=== PATIENT | female | born 1945 | race African-American/Black ===

== ENCOUNTER 2018-06-18 22:58 | Inpatient (IN) | payer MEDICARE, MEDICAID ==
--- NOTE | 2018-06-18 23:26 | ED Physician Chart ---
ED Chief Complaint/HPI - Patient Information Date Seen:: 06/18/18 Time Seen:: 23:24 Chief Complaint:: Abnormal labs History of Present Illness:: 73 yo female with history of chronic low back pain radiating to the left lower extremity and CKD, was brought from [facility] to ER for evaluation of abnormal labs ( BUN 66, Cr 3.84) on 06/16/18. Allergies:: Allergies Allergy/AdvReac Type Severity Reaction Status Date / Time morphine [From MS Contin] Allergy Verified 06/18/18 23:10 Penicillins Allergy Verified 06/18/18 23:10 Sulfa (Sulfonamide Allergy Verified 06/18/18 23:10 Antibiotics) Vitals:: Vital Signs - 8 hr 06/18/18 23:00 Temp 97.8 F HR 86 RR 18 BP 148/86 O2 Sat % 96 ED Review of Systems - Review of Systems General/Constitutional: No fever, No chills Skin: Other (Dry skin) Head: No headache Eyes: No pain ENT: No nasal drainage, Other (decrease hearing) Neck: No neck pain Cardio Vascular: No chest pain Pulmonary: No SOB GI: No nausea, No vomiting Musculoskeletal: Bone or joint pain, Back pain Neurological: Weakness, Paresthesia ED Past Medical History - Past Medical History Past Medical History: HTN, CHF, Asthma/COPD, Other (CKD, hyperlipidemia, osteoarhritis, osteonecrosis, hearing loss, polyneuropathy, cardiomegaly, anemia ) Social History: Smoker, No Alcohol, No Drug Use Family Medical History - Family Member Mother History Unknown: Yes ED Physical Exam - Physical Examination General/Constitutional: Awake, Alert Head: Atraumatic Eyes: PERRL Skin: No ecchymosis ENMT: Nasal exam nl Neck: No nuchal rigidity Respiratory: No Wheeze/Rhonchi/Rales Cardio Vascular: RRR, No murmur, gallop, rubs, NL S1 S2 GI: No tenderness/rebounding/guarding Other Extremities comments:: Ambulate with assistance. Lumbar tenderness with painful and limited ROM, 1+ terry BLE Neuro/Psych: Alert/oriented (A & O x 2) ED Labs/Radiology/EKG Results - Lab Results Results: Laboratory Last Values WBC 7.1 Th/cmm (4.8-10.8) 06/18/18 23:35 RBC 3.47 Mil/cmm (3.80-5.20) L 06/18/18 23:35 Hgb 9.4 gm/dL (12-16) L 06/18/18 23:35 Hct 29.6 % (41.0-60) L 06/18/18 23:35 MCV 85.2 fl (81-100) 06/18/18 23:35 MCH 27.2 pg (27.0-31.0) 06/18/18 23:35 MCHC Differential 31.9 pg (28.0-36.0) 06/18/18 23:35 RDW 14.0 % (11.5-20.0) 06/18/18 23:35 Plt Count 211 Th/cmm (150-400) 06/18/18 23:35 MPV 7.3 fl 06/18/18 23:35 Neutrophils % 51.5 % (40.0-80.0) 06/18/18 23:35 Lymphocytes % 24.9 % (20.0-50.0) 06/18/18 23:35 Monocytes % 13.6 % (2.0-10.0) H 06/18/18 23:35 Eosinophils % 9.2 % (0.0-5.0) H 06/18/18 23:35 Basophils % 0.8 % (0.0-2.0) 06/18/18 23:35 PT 11.0 SECONDS (9.5-11.5) 06/18/18 23:35 INR 1.06 (0.5-1.4) 06/18/18 23:35 PTT (Actin FS) 27.2 SECONDS (26.0-38.0) 06/18/18 23:35 Sodium 138 mEq/L (136-145) 06/18/18 23:35 Potassium 4.2 mEq/L (3.5-5.1) 06/18/18 23:35 Chloride 107 mEq/L (98-107) 06/18/18 23:35 Carbon Dioxide 24.0 mEq/L (21.0-31.0) 06/18/18 23:35 Anion Gap 11.2 (7.0-16.0) 06/18/18 23:35 BUN 63 mg/dL (7-25) H 06/18/18 23:35 Creatinine 2.6 mg/dL (0.6-1.2) H 06/18/18 23:35 Est GFR ( Amer) TNP 06/18/18 23:35 Est GFR (Non-Af Amer) TNP 06/18/18 23:35 BUN/Creatinine Ratio 24.2 06/18/18 23:35 Glucose 93 mg/dL (70-105) 06/18/18 23:35 Calcium 9.1 mg/dL (8.6-10.3) 06/18/18 23:35 Total Bilirubin 0.4 mg/dL (0.3-1.0) 06/18/18 23:35 AST 16 U/L (13-39) 06/18/18 23:35 ALT 11 U/L (7-52) 06/18/18 23:35 Alkaline Phosphatase 78 U/L (34-104) 06/18/18 23:35 Troponin I 0.02 ng/mL (0.01-0.05) 06/18/18 23:35 B-Natriuretic Peptide 778.0 pg/mL (5.0-100.0) H 06/18/18 23:35 Total Protein 6.7 gm/dL (6.0-8.3) 06/18/18 23:35 Albumin 3.6 gm/dL (3.7-5.3) L 06/18/18 23:35 Globulin 3.1 gm/dL 06/18/18 23:35 Albumin/Globulin Ratio 1.2 (1.0-1.8) 06/18/18 23:35 Urine Source MIDSTREAM 06/19/18 00:15 Urine Color YELLOW 06/19/18 00:15 Urine Clarity CLEAR (CLEAR) 06/19/18 00:15 Urine pH 6.0 (4.6 - 8.0) 06/19/18 00:15 Ur Specific [place] 1.015 (1.005-1.030) 06/19/18 00:15 Urine Protein 100 mg/dL (NEGATIVE) H 06/19/18 00:15 Urine Glucose (UA) NEGATIVE mg/dL (NEGATIVE) 06/19/18 00:15 Urine Ketones NEGATIVE mg/dL (NEGATIVE) 06/19/18 00:15 Urine Blood NEGATIVE (NEGATIVE) 06/19/18 00:15 Urine Nitrate NEGATIVE (NEGATIVE) 06/19/18 00:15 Urine Bilirubin NEGATIVE (NEGATIVE) 06/19/18 00:15 Urine Urobilinogen 0.2 E.U./dL (0.2 - 1.0) 06/19/18 00:15 Ur Leukocyte Esterase NEGATIVE (NEGATIVE) 06/19/18 00:15 Urine RBC 0-2 /hpf (0-5) 06/19/18 00:15 Urine WBC 0-2 /hpf (0-5) 06/19/18 00:15 Ur Epithelial Cells FEW /lpf (FEW) 06/19/18 00:15 Urine Bacteria FEW /hpf (NONE SEEN) 06/19/18 00:15 - Radiology Results Results: CXR: cardiomegaly, left perihilar linear density ED Assessment - Assessment General Assessment: Acute on chronic renal failure CKD CHF Dehydration Anemia, normocytic Chronic low back pain Assessment/Comments:: CBC, CMP, BNP, Trop, UA EKG, CXR D5 1/2 NS at 50cc/h Pain control ED Septic Shock - . Is Septic Shock (SBP<90, OR Lactate>4 mmol\L) present?: No - <6hrs of presentation: Vital Signs: Vital Signs - 8 hr 06/18/18 23:00 Temp 97.8 F HR 86 RR 18 BP 148/86 O2 Sat % 96 ED Reassessment (Disposition) - Reassessment Reassessment Condition:: Improved - Patient Disposition Discharge/Transfer:: Acute Care w/in this hosp Admitting Medical Physician:: Tyler Anderson
[2018-06-18 23:51] LABS: % BASOPHILS 0.8 % (0.0-2.0); % EOSINOPHILS 9.2 % (0.0-5.0); % LYMPHOCYTES 24.9 % (20.0-50.0); % MONOCYTES 13.6 % (2.0-10.0); % NEUTROPHILS 51.5 % (40.0-80.0); BASOPHILE ABSOLUTE 0.1 Th/cumm (0-0.2); EOSINOPHILE ABSOLUTE 0.7 Th/cmm (0.1-0.4); HEMATOCRIT 29.6 % (41.0-60); HEMOGLOBIN 9.4 gm/dL (12-16); LYMPHOCYTE ABSOLUTE 1.8 Th/cmm (1.5-3.0); MEAN CELL VOLUME 85.2 fl (81-100); MEAN CORPUSCULAR HEMOGLOBIN 27.2 pg (27.0-31.0); MEAN CORPUSCULAR HGB CONC 31.9 pg (28.0-36.0); MEAN PLATELET VOLUME 7.3 fl; NEUTROPHILE ABSOLUTE 3.5 Th/cmm (1.8-8.0); PLATELET COUNT 211 Th/cmm (150-400); RED BLOOD COUNT 3.47 Mil/cmm (3.80-5.20); WHITE BLOOD COUNT 7.1 Th/cmm (4.8-10.8)
[2018-06-19 00:06] LABS: INR 1.06 (0.5-1.4)
[2018-06-19 00:08] LABS: ALB/GLOB RATIO 1.2 (1.0-1.8); ALBUMIN 3.6 gm/dL (3.7-5.3); ALKALINE PHOSPHATASE 78 U/L (34-104); ANION GAP 11.2 (7.0-16.0); BILIRUBIN,TOTAL 0.4 mg/dL (0.3-1.0); BUN - UREA NITROGEN 63 mg/dL (7-25); CALCIUM SERUM 9.1 mg/dL (8.6-10.3); CHLORIDE 107 mEq/L (98-107); CREATININE - SERUM 2.6 mg/dL (0.6-1.2); GLUCOSE 93 mg/dL (70-105); POTASSIUM SERUM 4.2 mEq/L (3.5-5.1); SGOT 16 U/L (13-39); SGPT/ALT 11 U/L (7-52); SODIUM SERUM 138 mEq/L (136-145); TOTAL PROTEIN,SERUM 6.7 gm/dL (6.0-8.3)
[2018-06-19] MEDS ORDERED: D5-0.45NS 1,000 ML IV ONE (00:37)
[2018-06-19 00:44] LABS: URINE SOURCE MIDSTREAM
[2018-06-19 00:59] LABS: URINE BILIRUBIN NEGATIVE (NEGATIVE); URINE BLOOD NEGATIVE (NEGATIVE); URINE GLUCOSE (UA) NEGATIVE (NEGATIVE); URINE KETONE NEGATIVE (NEGATIVE); URINE LEUKOCYTE ESTERASE NEGATIVE (NEGATIVE); URINE NITRATE NEGATIVE (NEGATIVE); URINE PROTEIN 100 mg/dL (NEGATIVE); URINE UROBILINOGEN 0.2 E.U./dL (0.2 - 1.0)
[2018-06-19 01:02] LABS: URINE CLARITY CLEAR (CLEAR); URINE COLOR YELLOW; URINE MICROSCOPIC INDICATED? YES
[2018-06-19 01:05] LABS: URINE BACTERIA FEW /hpf (NONE SEEN); URINE EPITHELIAL CELLS FEW /lpf (FEW); URINE RBC 0-2 /hpf (0-5); URINE WBC 0-2 /hpf (0-5)
[2018-06-19] MEDS ORDERED: Morphine Sulfate 2 mg/mL 1mL Syr IV STA (01:39)
[2018-06-19] MEDS ORDERED: Morphine Sulfate 2 mg/mL 1mL Syr ONE (01:41)
[2018-06-19] MEDS ORDERED: Morphine Sulfate 2 mg/mL 1mL Syr IVP PRN (05:20)
[2018-06-19] MEDS ORDERED: Carbamide Peroxide Otic Soln 15 mL Bottle EACH EAR PRN (07:11)
[2018-06-19] MEDS ORDERED: Albuterol Nebulizer 2.5mg/3mL HHN PRN (07:11)
[2018-06-19] MEDS ORDERED: Magnesium Hydroxide (MOM) 30 mL UDC PO PRN (07:11)
[2018-06-19] MEDS: HYDROmorphone 1 mg/mL 1mL Syr IVP PRN ×3 (08:14→21:23)
--- NOTE | 2018-06-19 09:02 | Diagnostic Imaging Report ---
Portable chest x-ray HISTORY: Shortness of breath. The heart is enlarged. There is a degree of pulmonary vascular redistribution consistent with cardiac decompensation. No glo pulmonary edema. A linear density seen within the left perihilar region consistent with scarring or atelectasis. IMPRESSION: 1. Cardiomegaly with evidence of a marginal degree of congestive heart failure without glo pulmonary edema 2. Linear density within the left perihilar region that may be associated with scarring or subsegmental atelectasis.
[2018-06-19] MEDS: POLYETHYLENE GLYCOL 3350 17 GM PACK PO SCH (09:03)
[2018-06-19] MEDS: Ferrous Sulfate 325 MG TAB PO SCH (09:06)
[2018-06-19] MEDS: Vitamin B Complex w/Vitamin C Tab PO SCH (09:14)
--- NOTE | 2018-06-19 13:16 | History & Physical ---
ADMIT DATE: 06/19/2018 CHIEF COMPLAINT: Acute on chronic renal insufficiency, lower back pain and abnormal labs. HISTORY OF PRESENT ILLNESS: The patient is a 73-year-old -[place] lady who resides at [facility], who was transferred to the ER secondary to the above-mentioned complaints. Apparently, the patient had labs done at the facility showing a BUN of 66 and a creatinine of 3.84, which apparently are worse from her previous labs on 06/16/2018. Per records, she has multiple medical problems including generalized osteoarthritis, essential hypertension, hyperlipidemia, osteoporosis, hearing loss, renal insufficiency, asthma, hyperlipidemia. She states that she feels okay at this time. Denies any shortness of breath or lower extremity edema, but is currently complaining of her back pain, which is somewhat chronic in nature. Pertinent findings at the ED include a BUN of 63 with a creatinine of 2.6 (unknown baseline). Her BNP level was also noted to be high at 778. The patient has been admitted to the medical floor for further management and care. PAST MEDICAL HISTORY: As noted above. History of CHF, osteonecrosis, polyneuropathy, cardiomegaly, chronic anemia. PAST SURGICAL HISTORY: None listed. SOCIAL HISTORY: No tobacco, ETOH or illicit drug usage. She lives at [facility]. FAMILY HISTORY: Likely noncontributory to this admission. ALLERGIES: MORPHINE, PENICILLINS, SULFA. OUTPATIENT MEDICATIONS: Lasix 40 mg p.o. every day, Tylenol 650 q.6 p.r.n. for moderate pain, albuterol metered dose inhaler 1 puff t.i.d., amlodipine 10 every day, aspirin 81 every day, atorvastatin 20 at bedtime, Dulcolax suppository 10 mg every day, Debrox ear drops 2 drops each ear b.i.d., Coreg 25 mg q.12, Benadryl 25 q.6 p.r.n. for pruritus, Colace 100 mg b.i.d., iron sulfate 325 every day, folic acid with vitamin B and C every day, gabapentin 600 mg t.i.d., Robitussin 10 mL q.4 p.r.n. for cough, [place] 10/325 q.4 hours p.r.n. for moderate pain, DuoNeb q.4 hours p.r.n. for shortness of breath, milk of magnesia 30 mL at bedtime, Zofran 8 mg p.o. q.8 hours p.r.n. for nausea, vomiting and polyethylene glycol 1 gram every day. REVIEW OF SYSTEMS: GENERAL: She denies any fever, chills and no recent weight loss. HEAD AND NECK: She denies any headaches, any neck stiffness or neck pain. CARDIAC: No chest pain or palpitations. PULMONARY: Denies any cough, phlegm production, shortness of breath, orthopnea, or dyspnea on exertion. GASTROINTESTINAL: No bowel habit changes. GENITOURINARY: No bladder habit changes including decrease in urine output. NEUROLOGICAL: No changes in her vision. Denies any headaches, any syncope. MUSCULOSKELETAL: Chronic lower back pain and hip pain. PHYSICAL EXAMINATION: VITAL SIGNS: Temperature 97.9, afebrile, pulse 80, respirations 19, BP 155/72, respirations 18-19, satting 99% on room air. GENERAL: She is a well-developed, well-nourished female who appears to be in no distress. She is nontoxic appearing and hard of hearing. HEAD AND NECK: Normocephalic, atraumatic. Pupils are reactive to light. Extraocular movements are intact. Oropharynx is moist and clear. CARDIAC: Regular rate and rhythm without any murmurs. LUNGS: Diminished at the bases, but clear to auscultation. ABDOMEN: Soft, supple, nontender, nondistended, normoactive bowel sounds. EXTREMITIES: Lower extremities: There is no pedal edema. NEUROLOGIC: Grossly intact, nonfocal. Able to move all 4 extremities with equal force and strength. Cranial nerves 2-12 appear to be within normal limits. LABORATORY DATA: H and H 02/16, white count 7.1, platelet count 211. INR 1.06. Chemistry showed a BUN of 63 and a creatinine of 2.6, otherwise within normal limits. BNP 778. UA positive for protein, otherwise within normal limits. DIAGNOSTICS: EKG showed second-degree AV block, Mobitz II, heart rate of 80, no ST elevations or depressions. Chest x-ray is currently pending with no official results available yet. ASSESSMENT: 1. Acute on chronic renal insufficiency. 2. History of chronic renal disease. 3. Elevated BNP level with no clinical evidence of congestive heart failure. 4. History of hypertension. 5. History of chronic obstructive pulmonary disease per records. 6. History of chronic pain syndrome. 7. 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 8. History of hyperlipidemia. PLAN: The patient has been admitted to the telemetry [facility] for further management and care. The patient will undergo renal workup including 24-hour urine collection for protein, creatinine, as well as bilateral renal ultrasound. The patient has been placed on IV Lasix and as noted above, we will monitor urine output. She will be kept on her other medications as scheduled including her pain management and Nephrology consult also has been asked for further management and care. [facility]# [id number] [place]
--- NOTE | 2018-06-19 15:08 | Diagnostic Imaging Report ---
Renal ultrasound HISTORY: Abnormal renal function test The right kidney measures approximately 9.5 x 5.9 x 5.8 cm. Slight increase in cortical echogenicity. A 1.3 cm sonolucent lesion is seen in the upper pole consistent with a cyst. No hydronephrosis. The left kidney measures 9.0 x 6.0 x 7.7 cm. Increased cortical echogenicity. A 2.5 cm sonolucent lesion is seen in the mid cortex of the left kidney. No hydronephrosis. No intraluminal abnormality seen within the urinary bladder. Post void residual equals 36.1 mL. IMPRESSION: 1. Increased cortical echogenicity of the kidneys. The findings may reflect a degree of chronic parenchymal disease. Correlation with renal function tests needed 2. No hydronephrosis 3. Bilateral renal cysts
[2018-06-19 15:47] LABS: % EOSINOPHILS 8.5 % (0.0-5.0); % LYMPHOCYTES 24.7 % (20.0-50.0); % MONOCYTES 13.2 % (2.0-10.0); % NEUTROPHILS 52.6 % (40.0-80.0); BASOPHILE ABSOLUTE 0.1 Th/cumm (0-0.2); EOSINOPHILE ABSOLUTE 0.6 Th/cmm (0.1-0.4); HEMATOCRIT 28.7 % (41.0-60); HEMOGLOBIN 9.3 gm/dL (12-16); LYMPHOCYTE ABSOLUTE 1.8 Th/cmm (1.5-3.0); MEAN CELL VOLUME 85.5 fl (81-100); MEAN CORPUSCULAR HEMOGLOBIN 27.6 pg (27.0-31.0); MEAN CORPUSCULAR HGB CONC 32.3 pg (28.0-36.0); MEAN PLATELET VOLUME 7.3 fl; NEUTROPHILE ABSOLUTE 3.8 Th/cmm (1.8-8.0); PLATELET COUNT 193 Th/cmm (150-400); RED BLOOD COUNT 3.36 Mil/cmm (3.80-5.20); RED CELL DISTRIBUTION WIDTH 14.1 % (11.5-20.0); WHITE BLOOD COUNT 7.3 Th/cmm (4.8-10.8)
[2018-06-19 16:10] LABS: ALB/GLOB RATIO 1.1 (1.0-1.8); ALBUMIN 3.3 gm/dL (3.7-5.3); ALKALINE PHOSPHATASE 73 U/L (34-104); ANION GAP 10.5 (7.0-16.0); BILIRUBIN,TOTAL 0.4 mg/dL (0.3-1.0); BUN - UREA NITROGEN 58 mg/dL (7-25); CARBON DIOXIDE 25.5 mEq/L (21.0-31.0); CHLORIDE 108 mEq/L (98-107); CHOLESTEROL 189 mg/dL (<200); CREATININE - SERUM 2.7 mg/dL (0.6-1.2); GLUCOSE 115 mg/dL (70-105); HDL -HIGH DENSITY LIPOPROTEIN 45 mg/dL (23-92); MAGNESIUM 2.2 mg/dL (1.9-2.7); SGOT 15 U/L (13-39); SGPT/ALT 11 U/L (7-52); SODIUM SERUM 140 mEq/L (136-145); TOTAL PROTEIN,SERUM 6.4 gm/dL (6.0-8.3); TRIGLYCERIDES 112 mg/dL (<150)
--- NOTE | 2018-06-19 16:31 | History & Physical ---
ADMIT DATE: 06/19/2018 CHIEF COMPLAINT: Short of breath, severe pain and acute renal failure. HISTORY OF PRESENT ILLNESS: The patient is a 73-year-old -Maltese female admitted from the Emergency Room to telemetry floor of [facility] due to multiple complicated medical conditions. The patient is getting very weak with progressive worsening for the past few days. She complained of severe pain. She complains of pain in the back and the multiple joints. The patient also has some shortness of breath. Labs done in the shelter 2 days ago revealed acute renal failure on chronic kidney disease. The patient is subsequently admitted. The BUN is 63, creatinine of 2.6 in the Emergency Room. BNP 778. Hemoglobin 9.4, hematocrit 29. Chest x-ray revealed findings consistent with congestive heart failure. PAST MEDICAL HISTORY: Coronary heart disease, status post [place], congestive heart failure, hypertension, hyperlipidemia, chronic kidney disease, chronic pain syndrome, neuropathy, COPD. PAST SURGICAL HISTORY: Denies significant past surgical history. MEDICATIONS: See medication reconciliation list. ALLERGIES: MORPHINE, PENICILLIN. FAMILY HISTORY: Noncontributory. SOCIAL HISTORY: The patient smoked before, quit years ago. No history of alcohol or IV drug abuse. REVIEW OF SYSTEMS: As per HPI. PHYSICAL EXAMINATION: GENERAL: Well-developed, thin female, in no acute distress. SKIN: There is some excoriation in the sacral area. VITAL SIGNS: Basically stable except high blood pressure with blood pressure of 190/96. HEENT: Normocephalic, atraumatic. Pupils equal, round, react to light and accommodation. CHEST: Symmetrical. LUNGS: Few wheezes appreciated with few rhonchi as well. CARDIAC: Normal sinus rhythm. S1, S2. ABDOMEN: Benign, soft, nontender. EXTREMITIES: No clubbing, cyanosis, edema, bilaterally 2+. CRANIOLOGICAL: Unremarkable. LABORATORY DATA: Reviewed as seen from the computer. ASSESSMENT AND PLAN: 1. Acute renal failure on chronic kidney disease: I have instructed the shelter yesterday to discontinue any CHIDI inhibitor and the diuretics. We will try to avoid nephrotoxic medications if possible. Nephrology consultation requested and appreciated. 2. Congestive heart failure with elevated BNP: Adjust medication as needed and echocardiogram may be needed. 3. Hypertensive urgency: Close monitor and adjust medication. 4. Coronary artery disease, status post myocardial infarction: Continue medications. 5. Chronic obstructive pulmonary disease: RT protocol. 6. Chronic pain syndrome exacerbation: Adjust pain medications as needed. 7. History of neuropathy: Continue Neurontin. 8. DVT prophylaxis. JOB# [id number]
[2018-06-19] MEDS ORDERED: Menthol/Methyl Salicylate Cream TP PRN (17:00)
[2018-06-19] MEDS: Atorvastatin Calcium 10 MG TAB PO SCH (21:10)
[2018-06-20] MEDS: HYDROmorphone 1 mg/mL 1mL Syr IVP PRN ×4 (01:50→19:47)
--- NOTE | 2018-06-20 01:58 | Consultation ---
DATE OF CONSULTATION: 06/19/2018 ATTENDING: Dr. Dedra Anderson. RIGGING HELPER: Dr. Ronaldo Prince. REASON FOR CONSULTATION: Worsening kidney function, electrolyte imbalance, and fluid management. HISTORY OF PRESENT ILLNESS: This is a 73-year-old -Armenian female with past medical history of chronic kidney disease, who came in because of abnormal labs. Two days prior to admission, the patient had labs drawn at [facility], which revealed a BUN/creatinine of 66/3.84. As per the patient, she has had history of kidney disease "all of her life." Thus, she was transported to the Emergency Room. Her BUN/creatinine on admission were 63/2.6. She denied any nausea and vomiting, diarrhea, fever/chills, dysuria, hematuria or retention. PAST MEDICAL HISTORY: 1. Chronic kidney disease. 2. Legally deaf. 3. Severe DJD of both hips. 4. Essential hypertension. 5. Dyslipidemia. 6. Osteoporosis. 7. Sickle cell disease. 8. History of CHF. 9. History of COPD. 10. Polyneuropathy. CURRENT MEDICATIONS: She is currently on acetaminophen, amlodipine, aspirin, atorvastatin, bisacodyl, carbamide, peroxide, carvedilol, diphenhydramine, docusate sodium, ferrous sulfate, furosemide, gabapentin, Robitussin, hydrocodone/APAP, ondansetron, polyethylene glycol, vitamin B complex. ALLERGIES: ALLERGIC TO MORPHINE, PENICILLIN, AND SULFA. SOCIAL AND FAMILY HISTORY: I was not able to obtain directly from the patient because of difficulty communicating with her since she is deaf. REVIEW OF SYSTEMS: Again, I was not able to decipher accurate information from her because of her inability to communicate. PHYSICAL EXAMINATION: GENERAL: The patient is awake, verbal, diminished hearing. VITAL SIGNS: Her temperature is 99.3 degrees, pulse 81, blood pressure 154/84. SKIN: Poor turgor, warm, no rash, no jaundice appreciated. HEENT: Head normocephalic, atraumatic. Eyes: Extraocular muscles intact. Pupils equal, round, reactive to light and accommodates. Anicteric sclerae. Pale conjunctivae. Nose, midline nasal septum. Mouth: Dry mucosa, adequate dentition. NECK: Supple, no adenopathy, no thyromegaly, no bruits. Trachea palpated in the midline. CHEST AND CARDIOVASCULAR: S1, S2. No rub, murmur nor gallop appreciated. Point of maximal impulse fifth intercostal space, left midclavicular line. No abdominal or femoral bruits appreciated. LUNGS: Equal expansion. No use of accessory muscles. No supraclavicular retractions. Decreased breath sounds, few rhonchi, but no rales nor wheezes appreciated. BREASTS: Pendulous, symmetrical, without any discharge. ABDOMEN: Globular, soft, positive for bowel sounds. No bruits either diastolic or systolic. RECTAL: Deferred. GENITOURINARY: Normal appearing female genitalia. MUSCULOSKELETAL: No effusions present in her joints, but there was a problem of assessment of movement of lower extremities due to inability to communicate. EXTREMITIES: No evidence of any edema, cyanosis nor clubbing with palpable femoral, but unable to fully appreciate popliteal and dorsalis pedis pulses. NEUROLOGIC: Again, because of problem with deafness and communication I was not able to pursue further my neuro exam. LABORATORY DATA: Labs did reveal white count 7.1, hemoglobin 9.4, hematocrit 29.6, platelets 211, polys 51.5%. Sodium 138, potassium 4.2, chloride 107, bicarbonate 24, BUN 63, creatinine 2.6, glucose 93, calcium 9.1. BNP 778. Troponin 0.02, albumin 3.6. IMPRESSION: 1. Chronic kidney disease, stage 5. The patient's chronic kidney disease is secondary to longstanding history of hypertension giving rise to hypertensive nephrosclerosis. 2. Legally deaf. 3. Elevated BNP likely secondary to kidney failure. 4. Severe degenerative joint disease involving both hips. 5. Essential hypertension with chronic kidney disease. 6. Dyslipidemia. 7. Osteoporosis. 8. Sickle cell disease. 9. Polyneuropathy. 10. Chronic obstructive pulmonary disease. PLAN: 1. Renal ultrasound. 2. Urinalysis. 3. Urine spot sodium, eosinophils, and creatinine. 4. Urine microalbumin to creatinine ratio. 5. Discontinue Lasix for now since the patient not in overt decompensated heart failure and there is no evidence of any peripheral edema. 6. Follow up electrolytes. JOB# [id number]
[2018-06-20 05:38] LABS: EOSINOPHIL SMEAR SOURCE URINE; EOSINOPHILS SMEAR COUNT NONE SEEN (NONE SEEN)
--- NOTE | 2018-06-20 06:27 | Consultation ---
DATE OF CONSULTATION: 06/19/[address] Anderson. HISTORY OF PRESENT ILLNESS: This 73-year-old -[place] female patient who has been admitted to [facility] with various medical problems. The patient has elevated BNP level with cardiac arrhythmias and hence Cardiology consult is requested. PAST MEDICAL HISTORY: Hypertension, hyperlipidemia, deafness, CKD stage 4, osteoporosis, iron deficiency anemia, COPD, osteoporosis. FAMILY HISTORY: Unremarkable. SOCIAL HISTORY: No history of smoking, alcohol abuse. ALLERGIES: None. PHYSICAL EXAMINATION: VITAL SIGNS: Blood pressure 130/70, pulse 70, respiration 20. HEAD: Normocephalic. No lumps or bumps. EYES: Pupils equal, reactive to light. Fundi show AV nicking, sclerae white, conjunctivae pink. NECK: Carotid 2+. Normal upstroke. JVD flat. Thyroid not palpable. Lymph nodes not palpable. CHEST: Shows increased AP diameter. No kyphosis, scoliosis. LUNGS: Bilateral bronchovesicular breath sounds. HEART: PMI fifth intercostal space with lateral to midclavicular line. S1, S2, soft S3, S4. ABDOMEN: Soft. Liver, spleen not palpable. No organomegaly. Bowel sounds active. NEUROLOGIC: Unremarkable. EXTREMITIES: Peripheral pulses 2+. No pedal edema. CLINICAL IMPRESSION: Congestive heart failure, diastolic dysfunction, acute hypertension, hyperlipidemia, deafness, chronic kidney disease stage 4, osteoporosis, iron deficiency anemia and chronic obstructive pulmonary disease. PLAN: We will continue present management and monitor the patient for arrhythmias, also get an echocardiogram. JOB# [id number]
[2018-06-20 06:45] LABS: EOSINOPHILE ABSOLUTE 0.6 Th/cmm (0.1-0.4); HEMATOCRIT 29.3 % (41.0-60); HEMOGLOBIN 9.6 gm/dL (12-16); LYMPHOCYTE ABSOLUTE 2.1 Th/cmm (1.5-3.0); MEAN CELL VOLUME 86.3 fl (81-100); MEAN CORPUSCULAR HEMOGLOBIN 28.2 pg (27.0-31.0); MEAN CORPUSCULAR HGB CONC 32.6 pg (28.0-36.0); MEAN PLATELET VOLUME 7.8 fl; MONOCYTE ABSOLUTE 1.1 Th/cmm (0.3-1.0); NEUTROPHILE ABSOLUTE 3.2 Th/cmm (1.8-8.0); PLATELET COUNT 201 Th/cmm (150-400); RED BLOOD COUNT 3.39 Mil/cmm (3.80-5.20); RED CELL DISTRIBUTION WIDTH 14.2 % (11.5-20.0)
[2018-06-20 07:08] LABS: ANION GAP 12.3 (7.0-16.0); BUN - UREA NITROGEN 63 mg/dL (7-25); CALCIUM SERUM 8.8 mg/dL (8.6-10.3); CHLORIDE 109 mEq/L (98-107); CREATININE - SERUM 2.6 mg/dL (0.6-1.2); GLUCOSE 89 mg/dL (70-105); MAGNESIUM 2.3 mg/dL (1.9-2.7); PHOSPHOROUS 4.2 mg/dL (2.5-5.0); POTASSIUM SERUM 4.3 mEq/L (3.5-5.1); SODIUM SERUM 142 mEq/L (136-145)
[2018-06-20 08:12] LABS: EOSINOPHIL 9 % (0-5); LYMPHOCYTE 27 % (20-50); MONOCYTE 19 % (2-10); NEUTROPHILS 45 % (40-80); PLATELET ESTIMATE ADEQUATE (NORMAL)
[2018-06-20] MEDS: Ferrous Sulfate 325 MG TAB PO SCH (09:13)
[2018-06-20] MEDS: POLYETHYLENE GLYCOL 3350 17 GM PACK PO SCH ×2 (09:15→10:36)
[2018-06-20] MEDS: Vitamin B Complex w/Vitamin C Tab PO SCH (09:15)
--- NOTE | 2018-06-20 12:10 | General Progress Note ---
Subjective - Review of Systems Service Date: 06/20/18 Subjective: Patient has no complaint of chest pain shortness of breath patient is deaf Objective - Results Result Diagrams: 06/20/18 05:55 06/20/18 05:55 Recent Labs: Laboratory Last Values WBC 7.0 Th/cmm (4.8-10.8) 06/20/18 05:55 RBC 3.39 Mil/cmm (3.80-5.20) L 06/20/18 05:55 Hgb 9.6 gm/dL (12-16) L 06/20/18 05:55 Hct 29.3 % (41.0-60) L 06/20/18 05:55 MCV 86.3 fl (81-100) 06/20/18 05:55 MCH 28.2 pg (27.0-31.0) 06/20/18 05:55 MCHC Differential 32.6 pg (28.0-36.0) 06/20/18 05:55 RDW 14.2 % (11.5-20.0) 06/20/18 05:55 Plt Count 201 Th/cmm (150-400) 06/20/18 05:55 MPV 7.8 fl 06/20/18 05:55 Add Manual Diff YES 06/20/18 05:55 Neutrophils % 52.6 % (40.0-80.0) 06/19/18 15:30 Lymphocytes % 24.7 % (20.0-50.0) 06/19/18 15:30 Monocytes % 13.2 % (2.0-10.0) H 06/19/18 15:30 Eosinophils % 8.5 % (0.0-5.0) H 06/19/18 15:30 Basophils % 1.0 % (0.0-2.0) 06/19/18 15:30 Neutrophils (Manual) 45 % (40-80) 06/20/18 05:55 Lymphocytes 27 % (20-50) 06/20/18 05:55 Monocytes 19 % (2-10) H 06/20/18 05:55 Eosinophils 9 % (0-5) H 06/20/18 05:55 Platelet Estimate ADEQUATE (NORMAL) 06/20/18 05:55 Eos Smear Source URINE 06/19/18 18:10 Eos Smear Total Cells NONE SEEN (NONE SEEN) 06/19/18 18:10 PT 11.0 SECONDS (9.5-11.5) 06/18/18 23:35 INR 1.06 (0.5-1.4) 06/18/18 23:35 PTT (Actin FS) 27.2 SECONDS (26.0-38.0) 06/18/18 23:35 Sodium 142 mEq/L (136-145) 06/20/18 05:55 Potassium 4.3 mEq/L (3.5-5.1) 06/20/18 05:55 Chloride 109 mEq/L (98-107) H 06/20/18 05:55 Carbon Dioxide 25.0 mEq/L (21.0-31.0) 06/20/18 05:55 Anion Gap 12.3 (7.0-16.0) 06/20/18 05:55 BUN 63 mg/dL (7-25) H 06/20/18 05:55 Creatinine 2.6 mg/dL (0.6-1.2) H 06/20/18 05:55 Est GFR ( Amer) TNP 06/20/18 05:55 Est GFR (Non-Af Amer) TNP 06/20/18 05:55 BUN/Creatinine Ratio 24.2 06/20/18 05:55 Glucose 89 mg/dL (70-105) 06/20/18 05:55 Uric Acid 8.1 mg/dL (2.3-6.6) H 06/19/18 15:30 Calcium 8.8 mg/dL (8.6-10.3) 06/20/18 05:55 Phosphorus 4.2 mg/dL (2.5-5.0) 06/20/18 05:55 Magnesium 2.3 mg/dL (1.9-2.7) 06/20/18 05:55 Total Bilirubin 0.4 mg/dL (0.3-1.0) 06/19/18 15:30 AST 15 U/L (13-39) 06/19/18 15:30 ALT 11 U/L (7-52) 06/19/18 15:30 Alkaline Phosphatase 73 U/L (34-104) 06/19/18 15:30 Troponin I 0.02 ng/mL (0.01-0.05) 06/18/18 23:35 B-Natriuretic Peptide 828.0 pg/mL (5.0-100.0) H 06/20/18 05:55 Total Protein 6.4 gm/dL (6.0-8.3) 06/19/18 15:30 Albumin 3.3 gm/dL (3.7-5.3) L 06/19/18 15:30 Globulin 3.1 gm/dL 06/19/18 15:30 Albumin/Globulin Ratio 1.1 (1.0-1.8) 06/19/18 15:30 Triglycerides 112 mg/dL (<150) 06/19/18 15:30 Cholesterol 189 mg/dL (<200) 06/19/18 15:30 LDL Cholesterol Direct 132 mg/dL (75-193) 06/19/18 15:30 HDL Cholesterol 45 mg/dL (23-92) 06/19/18 15:30 TSH 2.31 uIU/ml (0.34-5.60) 06/19/18 15:30 Urine Source MIDSTREAM 06/19/18 00:15 Urine Color YELLOW 06/19/18 00:15 Urine Clarity CLEAR (CLEAR) 06/19/18 00:15 Urine pH 6.0 (4.6 - 8.0) 06/19/18 00:15 Ur Specific [place] 1.015 (1.005-1.030) 06/19/18 00:15 Urine Protein 100 mg/dL (NEGATIVE) H 06/19/18 00:15 Urine Glucose (UA) NEGATIVE mg/dL (NEGATIVE) 06/19/18 00:15 Urine Ketones NEGATIVE mg/dL (NEGATIVE) 06/19/18 00:15 Urine Blood NEGATIVE (NEGATIVE) 06/19/18 00:15 Urine Nitrate NEGATIVE (NEGATIVE) 06/19/18 00:15 Urine Bilirubin NEGATIVE (NEGATIVE) 06/19/18 00:15 Urine Urobilinogen 0.2 E.U./dL (0.2 - 1.0) 06/19/18 00:15 Ur Leukocyte Esterase NEGATIVE (NEGATIVE) 06/19/18 00:15 Urine RBC 0-2 /hpf (0-5) 06/19/18 00:15 Urine WBC 0-2 /hpf (0-5) 06/19/18 00:15 Ur Epithelial Cells FEW /lpf (FEW) 06/19/18 00:15 Urine Bacteria FEW /hpf (NONE SEEN) 06/19/18 00:15 Ur Random Sodium 74 mmol/L 06/19/18 18:10 Urine Creatinine 64.0 mg/dl (28.0-217.0) 06/19/18 18:10 Microalb/Creat Ratio 640.2 mg/g creat (0.0-30.0) H 06/19/18 18:10 - Physical Exam Vitals and I&O: Vital Signs Temp 97.9 F 06/20/18 08:00 Pulse 80 06/20/18 09:20 Resp 18 06/20/18 08:00 BP 139/67 06/20/18 09:20 Pulse Ox 98 06/20/18 08:00 Intake & Output 06/19/18 06/20/18 06/20/18 18:59 06:59 18:59 Intake Total 1000 50 Balance 1000 50 Weight (lbs) 72.121 kg 72.121 kg Intake: Oral 1000 50 Other: # Voids 3 1 # Bowel Movements 0 0 Weight Source Bedscale Bedscale Active Medications: Current Medications Acetaminophen (Tylenol) 650 mg PO Q6HR PRN PRN Reason: Temp above 101F & Mild Pain Stop: 08/18/18 07:10 Acetaminophen/Hydrocodone Bitart ([place] 10 Mg/325 Mg) 1 tab PO Q4HR PRN PRN Reason: Pain (Moderate) Stop: 08/18/18 07:10 Albuterol Sulfate (Albuterol 2.5mg/3ml Neb Ud) 2.5 mg HHN TID PRN PRN Reason: Wheezing Albuterol/Ipratropium (Duoneb Neb) 3 ml HHN Q4HR PRN PRN Reason: Shortness of Breath or Wheeze Stop: 08/18/18 07:10 Amlodipine Besylate (Norvasc) 10 mg PO DAILY KRISTIN Stop: 08/18/18 08:59 Last Admin: 06/20/18 09:20 Dose: 10 mg Aspirin (Ecotrin) 81 mg PO DAILY KRISTIN Stop: 08/18/18 08:59 Last Admin: 06/20/18 09:15 Dose: 81 mg Atorvastatin Calcium (Lipitor) 20 mg PO HS KRISTIN Stop: 08/18/18 20:59 Last Admin: 06/19/18 21:10 Dose: 20 mg Bisacodyl (Dulcolax 10 Mg Supp) 10 mg RC DAILY PRN PRN Reason: Constipation Stop: 08/18/18 07:10 Camphor/Menthol (Bengay Greaseless 10%-15%) 1 appl TP QID PRN PRN Reason: Pain (Mild) Stop: 08/18/18 16:59 Carbamide Peroxide (Debrox Otic Drops) 2 drop EACH EAR BID PRN PRN Reason: EARWAX Stop: 08/18/18 07:10 Carvedilol (Coreg) 25 mg PO Q12HR KRISTIN Stop: 08/18/18 08:59 Last Admin: 06/20/18 09:18 Dose: 25 mg Diphenhydramine HCl (Benadryl) 25 mg PO Q6HR PRN PRN Reason: Itching Stop: 08/18/18 07:10 Last Admin: 06/19/18 09:15 Dose: 25 mg Docusate Sodium (Colace) 100 mg PO BID [facility] Stop: 08/18/18 08:59 Last Admin: 06/20/18 09:14 Dose: 100 mg Ferrous Sulfate (Iron) 325 mg PO DAILY [facility] Stop: 08/18/18 08:59 Last Admin: 06/20/18 09:13 Dose: 325 mg Gabapentin (Neurontin) 600 mg PO TID [facility] Stop: 08/18/18 08:59 Last Admin: 06/20/18 09:14 Dose: 600 mg Guaifenesin (Robitussin) 200 mg PO Q4HR PRN PRN Reason: Cough Stop: 08/18/18 07:10 Hydromorphone HCl (Dilaudid) 1 mg IVP Q4HR PRN PRN Reason: Pain (Severe) Stop: 08/18/18 07:10 Last Admin: 06/20/18 09:10 Dose: 1 mg Magnesium Hydroxide (Milk Of Magnesia) 30 ml PO HS PRN PRN Reason: Constipation Stop: 08/18/18 07:10 Miscellaneous (Clinical Monitoring) 1 ea MC DAILY PRN PRN Reason: RENAL DOSING Stop: 08/18/18 16:50 Ondansetron HCl (Zofran Odt) 8 mg PO Q8HR PRN PRN Reason: Nausea / Vomiting Polyethylene Glycol (Miralax) 17 gm PO DAILY KRISTIN Stop: 08/18/18 08:59 Last Admin: 06/20/18 10:36 Dose: Not Given Vitamin B Complex/Vit C/Folic Acid (Vitamin B Complex W/Vitamin C) 1 tab PO DAILY KRISTIN Stop: 08/18/18 08:59 Last Admin: 06/20/18 09:15 Dose: 1 tab General: Alert HEENT: PERRLA, Other Neck: JVD, +2 carotid pulse wo bruit (flat) Cardiovascular: Regular rate, Normal S2, Systolic murmurs Lungs: Other (basilar rales) Abdomen: Bowel sounds, Soft Extremities: Other (no pedal edema) Neurological: Normal speech, Normal tone, Sensation intact, Cranial nerves 3-12 NL, Reflexes 2+ Assessment/Plan - Assessment Assessment: Congestive heart failure systolic dysfunction acute Hypertension Hyperlipidemia CKD stage V Deafness Osteoporosis Iron deficiency anemia COPD - Plan Plan: Continue present management as renal evaluation Echocardiogram ejection fraction 38% mild mitral regurgitation mild tricuspid regurgitation left atrial enlargement and right atrial enlargement cardiomyopathy Nutritional Asmnt/Malnutr-PDOC - Dietary Evaluation Malnutrition Findings (Please click <Entered> for more info): Nutritional Asmnt/Malnutrition Start: 06/19/18 15: 27 Text: Status: Complete Freq: Protocol: Document 06/19/18 15:27 [email or web address] (Rec: 06/19/18 15:41 [email or web address] [email or web address]) Nutritional Asmnt/Malnutrition Patient General Information Nutritional Screening High Risk Diagnosis acute chronic kidney disease, CHF Pertinent Medical Hx/Surgical Hx CHF, osteonecrosis, polyneuropathy, cardiomegaly, chronic anemia, osteoarthritis , hyperlipidemia, osteoporosis , hearing loss, renal insufficiency, asthma Subjective Information Pt was seen sleeping at time of visit, did not wake to greeting. PO intake is 100% per RN. Renal ultrasound done today, findings reflect a degree of chronic parenchymal disease and bilateral renal cysts, per MD report. Current Diet Order/ Nutrition Support low sodium 2gm Pertinent Medications lipitor, d5-0.45ns, colace, iron, zofran, miralax, vit b complex w/ vit c Pertinent Labs 06/18 BUN 63, cr 2.6, alb 3.6 Nutritional Hx/Data Height 1.6 m Height (Calculated Centimeters) 160.0 Current Weight (lbs) 72.121 kg Weight (Calculated Kilograms) 72.1 Weight (Calculated Grams) 47775.2 [place] Body Weight 115 Body Mass Index (BMI) 28.1 Weight Status Overweight GI Symptoms GI Symptoms None Last BM not indicated Difficult in: None Food Allergies No Skin Integrity/Comment: intact Current %PO Good (75-100%) Estimated Nutritional Goals BEE in Kcals: Using Current wt Calories/Kcals/Kg 25-30 Kcals Calculated 0357-4292 Protein: Using Current wt Protein g/k.7-0.8 Protein Calculated 50-57 Fluid: ml 1465-9864 (1ml/kcal) Nutritional Problem 1. Problem Problem altered nutrition related labs Etiology renal dysfunction Signs/Symptoms: BUN 63, Cr 2.6 Malnutrition Alert Is there a minimum of two criteria No selected? Query Text:Check all the applicable criteria. A minimum of two criteria are recommended for diagnosis of either severe or non-severe malnutrition. Malnutrition Related to Morbid Obesity Malnutrition related to morbid obesity No Intervention/Recommendation Comments 1. Recommend adding Renal 50g diet. TAO Tran notified, will speak to MD. Continue with low sodium 2gm diet as ordered. 2. Monitor PO intake, wt, labs and skin integrity 3. F/U as high risk in 2-3 days Expected Outcomes/Goals Expected Outcomes/Goals 1. PO intake to meet at least 75% of nutritional needs. 2. Wt stability, skin to remain intact, labs to approach WNL. Reviewed by Vero Peterson RD
--- NOTE | 2018-06-20 13:14 | Cardiology ---
06/19/[address] Anderson. M-MODE ECHOCARDIOGRAM: Mitral valve, anterior leaflet of mitral valve shows decreased excursion, EF velocity. Posterior leaflet of the mitral valve shows decreased excursion. Left ventricular posterior wall shows increased thickness, decreased excursion. Interventricular septum shows increased thickness, decreased excursion. There is hypertrophy of the left ventricle, ejection fraction 38%. Left atrium enlarged 4.6 cm. Aortic root shows normal dimension, normal excursion of aortic leaflets. CONCLUSION: Left atrial enlargement, cardiomyopathy, ejection fraction 38%. 2D ECHO: Long axis view shows enlarged left ventricular cavity with decreased ejection fraction. Left atrium enlarged. Aortic root shows normal dimension, normal excursion of aortic leaflets. Short axis view of mitral valve normal. Short axis view of aortic valve normal. Apical four chamber view shows enlarged left ventricular cavity with decreased ejection fraction, hypertrophy of the left ventricle. Left atrium enlarged. Right ventricular cavity normal. Right atrial enlargement. CONCLUSION: Cardiomyopathy, left atrial enlargement, right atrial enlargement, ejection fraction 38%. Doppler study shows mild mitral regurgitation, mild tricuspid regurgitation, right ventricular systolic pressure 46 mmHg with mild pulmonary hypertension. JOB# [id number]
--- NOTE | 2018-06-20 13:47 | General Progress Note ---
Subjective - Review of Systems Service Date: 06/20/18 Subjective: sleeping, comfortable Objective - Results Result Diagrams: 06/20/18 05:55 06/20/18 05:55 Recent Labs: Laboratory Last Values WBC 7.0 Th/cmm (4.8-10.8) 06/20/18 05:55 RBC 3.39 Mil/cmm (3.80-5.20) L 06/20/18 05:55 Hgb 9.6 gm/dL (12-16) L 06/20/18 05:55 Hct 29.3 % (41.0-60) L 06/20/18 05:55 MCV 86.3 fl (81-100) 06/20/18 05:55 MCH 28.2 pg (27.0-31.0) 06/20/18 05:55 MCHC Differential 32.6 pg (28.0-36.0) 06/20/18 05:55 RDW 14.2 % (11.5-20.0) 06/20/18 05:55 Plt Count 201 Th/cmm (150-400) 06/20/18 05:55 MPV 7.8 fl 06/20/18 05:55 Add Manual Diff YES 06/20/18 05:55 Neutrophils % 52.6 % (40.0-80.0) 06/19/18 15:30 Lymphocytes % 24.7 % (20.0-50.0) 06/19/18 15:30 Monocytes % 13.2 % (2.0-10.0) H 06/19/18 15:30 Eosinophils % 8.5 % (0.0-5.0) H 06/19/18 15:30 Basophils % 1.0 % (0.0-2.0) 06/19/18 15:30 Neutrophils (Manual) 45 % (40-80) 06/20/18 05:55 Lymphocytes 27 % (20-50) 06/20/18 05:55 Monocytes 19 % (2-10) H 06/20/18 05:55 Eosinophils 9 % (0-5) H 06/20/18 05:55 Platelet Estimate ADEQUATE (NORMAL) 06/20/18 05:55 Eos Smear Source URINE 06/19/18 18:10 Eos Smear Total Cells NONE SEEN (NONE SEEN) 06/19/18 18:10 PT 11.0 SECONDS (9.5-11.5) 06/18/18 23:35 INR 1.06 (0.5-1.4) 06/18/18 23:35 PTT (Actin FS) 27.2 SECONDS (26.0-38.0) 06/18/18 23:35 Sodium 142 mEq/L (136-145) 06/20/18 05:55 Potassium 4.3 mEq/L (3.5-5.1) 06/20/18 05:55 Chloride 109 mEq/L (98-107) H 06/20/18 05:55 Carbon Dioxide 25.0 mEq/L (21.0-31.0) 06/20/18 05:55 Anion Gap 12.3 (7.0-16.0) 06/20/18 05:55 BUN 63 mg/dL (7-25) H 06/20/18 05:55 Creatinine 2.6 mg/dL (0.6-1.2) H 06/20/18 05:55 Est GFR ( Amer) TNP 06/20/18 05:55 Est GFR (Non-Af Amer) TNP 06/20/18 05:55 BUN/Creatinine Ratio 24.2 06/20/18 05:55 Glucose 89 mg/dL (70-105) 06/20/18 05:55 Uric Acid 8.1 mg/dL (2.3-6.6) H 06/19/18 15:30 Calcium 8.8 mg/dL (8.6-10.3) 06/20/18 05:55 Phosphorus 4.2 mg/dL (2.5-5.0) 06/20/18 05:55 Magnesium 2.3 mg/dL (1.9-2.7) 06/20/18 05:55 Total Bilirubin 0.4 mg/dL (0.3-1.0) 06/19/18 15:30 AST 15 U/L (13-39) 06/19/18 15:30 ALT 11 U/L (7-52) 06/19/18 15:30 Alkaline Phosphatase 73 U/L (34-104) 06/19/18 15:30 Troponin I 0.02 ng/mL (0.01-0.05) 06/18/18 23:35 B-Natriuretic Peptide 828.0 pg/mL (5.0-100.0) H 06/20/18 05:55 Total Protein 6.4 gm/dL (6.0-8.3) 06/19/18 15:30 Albumin 3.3 gm/dL (3.7-5.3) L 06/19/18 15:30 Globulin 3.1 gm/dL 06/19/18 15:30 Albumin/Globulin Ratio 1.1 (1.0-1.8) 06/19/18 15:30 Triglycerides 112 mg/dL (<150) 06/19/18 15:30 Cholesterol 189 mg/dL (<200) 06/19/18 15:30 LDL Cholesterol Direct 132 mg/dL (75-193) 06/19/18 15:30 HDL Cholesterol 45 mg/dL (23-92) 06/19/18 15:30 TSH 2.31 uIU/ml (0.34-5.60) 06/19/18 15:30 Urine Source MIDSTREAM 06/19/18 00:15 Urine Color YELLOW 06/19/18 00:15 Urine Clarity CLEAR (CLEAR) 06/19/18 00:15 Urine pH 6.0 (4.6 - 8.0) 06/19/18 00:15 Ur Specific [place] 1.015 (1.005-1.030) 06/19/18 00:15 Urine Protein 100 mg/dL (NEGATIVE) H 06/19/18 00:15 Urine Glucose (UA) NEGATIVE mg/dL (NEGATIVE) 06/19/18 00:15 Urine Ketones NEGATIVE mg/dL (NEGATIVE) 06/19/18 00:15 Urine Blood NEGATIVE (NEGATIVE) 06/19/18 00:15 Urine Nitrate NEGATIVE (NEGATIVE) 06/19/18 00:15 Urine Bilirubin NEGATIVE (NEGATIVE) 06/19/18 00:15 Urine Urobilinogen 0.2 E.U./dL (0.2 - 1.0) 06/19/18 00:15 Ur Leukocyte Esterase NEGATIVE (NEGATIVE) 06/19/18 00:15 Urine RBC 0-2 /hpf (0-5) 06/19/18 00:15 Urine WBC 0-2 /hpf (0-5) 06/19/18 00:15 Ur Epithelial Cells FEW /lpf (FEW) 06/19/18 00:15 Urine Bacteria FEW /hpf (NONE SEEN) 06/19/18 00:15 Ur Random Sodium 74 mmol/L 06/19/18 18:10 Urine Creatinine 64.0 mg/dl (28.0-217.0) 06/19/18 18:10 Microalb/Creat Ratio 640.2 mg/g creat (0.0-30.0) H 06/19/18 18:10 - Physical Exam Vitals and I&O: Vital Signs Temp 97.9 F 06/20/18 08:00 Pulse 80 06/20/18 09:20 Resp 18 06/20/18 08:00 BP 139/67 06/20/18 09:20 Pulse Ox 98 06/20/18 08:00 Intake & Output 06/19/18 06/20/18 06/20/18 18:59 06:59 18:59 Intake Total 1000 50 Balance 1000 50 Weight (lbs) 72.121 kg 72.121 kg Intake: Oral 1000 50 Other: # Voids 3 1 # Bowel Movements 0 0 Weight Source Bedscale Bedscale Active Medications: Current Medications Acetaminophen (Tylenol) 650 mg PO Q6HR PRN PRN Reason: Temp above 101F & Mild Pain Stop: 08/18/18 07:10 Acetaminophen/Hydrocodone Bitart ([place] 10 Mg/325 Mg) 1 tab PO Q4HR PRN PRN Reason: Pain (Moderate) Stop: 08/18/18 07:10 Albuterol Sulfate (Albuterol 2.5mg/3ml Neb Ud) 2.5 mg HHN TID PRN PRN Reason: Wheezing Albuterol/Ipratropium (Duoneb Neb) 3 ml HHN Q4HR PRN PRN Reason: Shortness of Breath or Wheeze Stop: 08/18/18 07:10 Amlodipine Besylate (Norvasc) 10 mg PO DAILY [facility] Stop: 08/18/18 08:59 Last Admin: 06/20/18 09:20 Dose: 10 mg Aspirin (Ecotrin) 81 mg PO DAILY KRISTIN Stop: 08/18/18 08:59 Last Admin: 06/20/18 09:15 Dose: 81 mg Atorvastatin Calcium (Lipitor) 20 mg PO HS [facility] Stop: 08/18/18 20:59 Last Admin: 06/19/18 21:10 Dose: 20 mg Bisacodyl (Dulcolax 10 Mg Supp) 10 mg RC DAILY PRN PRN Reason: Constipation Stop: 08/18/18 07:10 Camphor/Menthol ([place] Greaseless 10%-15%) 1 appl TP QID PRN PRN Reason: Pain (Mild) Stop: 08/18/18 16:59 Carbamide Peroxide (Debrox Otic Drops) 2 drop EACH EAR BID PRN PRN Reason: EARWAX Stop: 08/18/18 07:10 Carvedilol (Coreg) 25 mg PO Q12HR KRISTIN Stop: 08/18/18 08:59 Last Admin: 06/20/18 09:18 Dose: 25 mg Diphenhydramine HCl (Benadryl) 25 mg PO Q6HR PRN PRN Reason: Itching Stop: 08/18/18 07:10 Last Admin: 06/19/18 09:15 Dose: 25 mg Docusate Sodium (Colace) 100 mg PO BID [facility] Stop: 08/18/18 08:59 Last Admin: 06/20/18 09:14 Dose: 100 mg Ferrous Sulfate (Iron) 325 mg PO DAILY KRISTIN Stop: 08/18/18 08:59 Last Admin: 06/20/18 09:13 Dose: 325 mg Gabapentin (Neurontin) 600 mg PO TID [facility] Stop: 08/18/18 08:59 Last Admin: 06/20/18 09:14 Dose: 600 mg Guaifenesin (Robitussin) 200 mg PO Q4HR PRN PRN Reason: Cough Stop: 08/18/18 07:10 Hydromorphone HCl (Dilaudid) 1 mg IVP Q4HR PRN PRN Reason: Pain (Severe) Stop: 08/18/18 07:10 Last Admin: 06/20/18 09:10 Dose: 1 mg Magnesium Hydroxide (Milk Of Magnesia) 30 ml PO HS PRN PRN Reason: Constipation Stop: 08/18/18 07:10 Miscellaneous (Clinical Monitoring) 1 ea MC DAILY PRN PRN Reason: RENAL DOSING Stop: 08/18/18 16:50 Ondansetron HCl (Zofran Odt) 8 mg PO Q8HR PRN PRN Reason: Nausea / Vomiting Polyethylene Glycol (Miralax) 17 gm PO DAILY [facility] Stop: 08/18/18 08:59 Last Admin: 06/20/18 10:36 Dose: Not Given Vitamin B Complex/Vit C/Folic Acid (Vitamin B Complex W/Vitamin C) 1 tab PO DAILY [facility] Stop: 08/18/18 08:59 Last Admin: 06/20/18 09:15 Dose: 1 tab General: Alert, No acute distress HEENT: Atraumatic, PERRLA, Mucous membr. moist/pink Neck: Supple, +2 carotid pulse wo bruit (flat) Cardiovascular: Regular rate, Normal S1, Normal S2 Lungs: Other (few rhonchi) Abdomen: Bowel sounds, Soft, Obese Extremities: no Edema Neurological: Normal speech, Normal tone, Sensation intact, Cranial nerves 3-12 NL, Reflexes 2+ Skin: no Rash Psych/Mental Status: Mood NL Assessment/Plan - Assessment Assessment: CKD Deaf DJD both Hips Ess Htn Dyslipidemia Osteoporosis Polyneuropathy COPD - Plan Plan: Lab - Result Diagrams 06/20/18 05:55 06/20/18 05:55 Current Medications Acetaminophen (Tylenol) 650 mg PO Q6HR PRN PRN Reason: Temp above 101F & Mild Pain Stop: 08/18/18 07:10 Acetaminophen/Hydrocodone Bitart ([place] 10 Mg/325 Mg) 1 tab PO Q4HR PRN PRN Reason: Pain (Moderate) Stop: 08/18/18 07:10 Albuterol Sulfate (Albuterol 2.5mg/3ml Neb Ud) 2.5 mg HHN TID PRN PRN Reason: Wheezing Albuterol/Ipratropium (Duoneb Neb) 3 ml HHN Q4HR PRN PRN Reason: Shortness of Breath or Wheeze Stop: 08/18/18 07:10 Amlodipine Besylate (Norvasc) 10 mg PO DAILY [facility] Stop: 08/18/18 08:59 Last Admin: 06/20/18 09:20 Dose: 10 mg Aspirin (Ecotrin) 81 mg PO DAILY [facility] Stop: 08/18/18 08:59 Last Admin: 06/20/18 09:15 Dose: 81 mg Atorvastatin Calcium (Lipitor) 20 mg PO HS [facility] Stop: 08/18/18 20:59 Last Admin: 06/19/18 21:10 Dose: 20 mg Bisacodyl (Dulcolax 10 Mg Supp) 10 mg RC DAILY PRN PRN Reason: Constipation Stop: 08/18/18 07:10 Camphor/Menthol ([place] Greaseless 10%-15%) 1 appl TP QID PRN PRN Reason: Pain (Mild) Stop: 08/18/18 16:59 Carbamide Peroxide (Debrox Otic Drops) 2 drop EACH EAR BID PRN PRN Reason: EARWAX Stop: 08/18/18 07:10 Carvedilol (Coreg) 25 mg PO Q12HR [facility] Stop: 08/18/18 08:59 Last Admin: 06/20/18 09:18 Dose: 25 mg Diphenhydramine HCl (Benadryl) 25 mg PO Q6HR PRN PRN Reason: Itching Stop: 08/18/18 07:10 Last Admin: 06/19/18 09:15 Dose: 25 mg Docusate Sodium (Colace) 100 mg PO BID [facility] Stop: 08/18/18 08:59 Last Admin: 06/20/18 09:14 Dose: 100 mg Ferrous Sulfate (Iron) 325 mg PO DAILY [facility] Stop: 08/18/18 08:59 Last Admin: 06/20/18 09:13 Dose: 325 mg Gabapentin (Neurontin) 600 mg PO TID [facility] Stop: 08/18/18 08:59 Last Admin: 06/20/18 09:14 Dose: 600 mg Guaifenesin (Robitussin) 200 mg PO Q4HR PRN PRN Reason: Cough Stop: 08/18/18 07:10 Hydromorphone HCl (Dilaudid) 1 mg IVP Q4HR PRN PRN Reason: Pain (Severe) Stop: 08/18/18 07:10 Last Admin: 06/20/18 09:10 Dose: 1 mg Magnesium Hydroxide (Milk Of Magnesia) 30 ml PO HS PRN PRN Reason: Constipation Stop: 08/18/18 07:10 Miscellaneous (Clinical Monitoring) 1 ea MC DAILY PRN PRN Reason: RENAL DOSING Stop: 08/18/18 16:50 Ondansetron HCl (Zofran Odt) 8 mg PO Q8HR PRN PRN Reason: Nausea / Vomiting Polyethylene Glycol (Miralax) 17 gm PO DAILY [facility] Stop: 08/18/18 08:59 Last Admin: 06/20/18 10:36 Dose: Not Given Vitamin B Complex/Vit C/Folic Acid (Vitamin B Complex W/Vitamin C) 1 tab PO DAILY [facility] Stop: 08/18/18 08:59 Last Admin: 06/20/18 09:15 Dose: 1 tab Lab - Result Diagrams 06/20/18 05:55 06/20/18 05:55 Kidney fnc stable w/ Cr of 2.6 Renal US revealed b/l renal cysts start Epo for anemia Nutritional Asmnt/Malnutr-PDOC - Dietary Evaluation Malnutrition Findings (Please click <Entered> for more info): Nutritional Asmnt/Malnutrition Start: 06/19/18 15: 27 Text: Status: Complete Freq: Protocol: Document 06/19/18 15:27 [email or web address] (Rec: 06/19/18 15:41 [email or web address] [email or web address]) Nutritional Asmnt/Malnutrition Patient General Information Nutritional Screening High Risk Diagnosis acute chronic kidney disease, CHF Pertinent Medical Hx/Surgical Hx CHF, osteonecrosis, polyneuropathy, cardiomegaly, chronic anemia, osteoarthritis , hyperlipidemia, osteoporosis , hearing loss, renal insufficiency, asthma Subjective Information Pt was seen sleeping at time of visit, did not wake to greeting. PO intake is 100% per RN. Renal ultrasound done today, findings reflect a degree of chronic parenchymal disease and bilateral renal cysts, per MD report. Current Diet Order/ Nutrition Support low sodium 2gm Pertinent Medications lipitor, d5-0.45ns, colace, iron, zofran, miralax, vit b complex w/ vit c Pertinent Labs 06/18 BUN 63, cr 2.6, alb 3.6 Nutritional Hx/Data Height 1.6 m Height (Calculated Centimeters) 160.0 Current Weight (lbs) 72.121 kg Weight (Calculated Kilograms) 72.1 Weight (Calculated Grams) 78644.2 [place] Body Weight 115 Body Mass Index (BMI) 28.1 Weight Status Overweight GI Symptoms GI Symptoms None Last BM not indicated Difficult in: None Food Allergies No Skin Integrity/Comment: intact Current %PO Good (75-100%) Estimated Nutritional Goals BEE in Kcals: Using Current wt Calories/Kcals/Kg 25-30 Kcals Calculated 3395-9827 Protein: Using Current wt Protein g/k.7-0.8 Protein Calculated 50-57 Fluid: ml 6442-8849 (1ml/kcal) Nutritional Problem 1. Problem Problem altered nutrition related labs Etiology renal dysfunction Signs/Symptoms: BUN 63, Cr 2.6 Malnutrition Alert Is there a minimum of two criteria No selected? Query Text:Check all the applicable criteria. A minimum of two criteria are recommended for diagnosis of either severe or non-severe malnutrition. Malnutrition Related to Morbid Obesity Malnutrition related to morbid obesity No Intervention/Recommendation Comments 1. Recommend adding Renal 50g diet. TAO Tran notified, will speak to MD. Continue with low sodium 2gm diet as ordered. 2. Monitor PO intake, wt, labs and skin integrity 3. F/U as high risk in 2-3 days Expected Outcomes/Goals Expected Outcomes/Goals 1. PO intake to meet at least 75% of nutritional needs. 2. Wt stability, skin to remain intact, labs to approach WNL. Reviewed by Vero Peterson RD
[2018-06-20] MEDS: Hydrocodone/APAP 10 mg/325 mg Tab PO PRN (16:09)
--- NOTE | 2018-06-20 19:49 | Internal Medicine Prog Note ---
Internal Medicine Subjective - Subjective Service Date: 06/20/18 Patient seen and examined:: without staff Patient is:: awake, verbal, interactive, in bed Patient Complaints of:: congestion Per staff patient has:: no adverse event Internal Medicine Objective - Results Result Diagrams: 06/20/18 05:55 06/20/18 05:55 Recent Labs: Laboratory Last Values WBC 7.0 Th/cmm (4.8-10.8) 06/20/18 05:55 RBC 3.39 Mil/cmm (3.80-5.20) L 06/20/18 05:55 Hgb 9.6 gm/dL (12-16) L 06/20/18 05:55 Hct 29.3 % (41.0-60) L 06/20/18 05:55 MCV 86.3 fl (81-100) 06/20/18 05:55 MCH 28.2 pg (27.0-31.0) 06/20/18 05:55 MCHC Differential 32.6 pg (28.0-36.0) 06/20/18 05:55 RDW 14.2 % (11.5-20.0) 06/20/18 05:55 Plt Count 201 Th/cmm (150-400) 06/20/18 05:55 MPV 7.8 fl 06/20/18 05:55 Add Manual Diff YES 06/20/18 05:55 Neutrophils % 52.6 % (40.0-80.0) 06/19/18 15:30 Lymphocytes % 24.7 % (20.0-50.0) 06/19/18 15:30 Monocytes % 13.2 % (2.0-10.0) H 06/19/18 15:30 Eosinophils % 8.5 % (0.0-5.0) H 06/19/18 15:30 Basophils % 1.0 % (0.0-2.0) 06/19/18 15:30 Neutrophils (Manual) 45 % (40-80) 06/20/18 05:55 Lymphocytes 27 % (20-50) 06/20/18 05:55 Monocytes 19 % (2-10) H 06/20/18 05:55 Eosinophils 9 % (0-5) H 06/20/18 05:55 Platelet Estimate ADEQUATE (NORMAL) 06/20/18 05:55 Eos Smear Source URINE 06/19/18 18:10 Eos Smear Total Cells NONE SEEN (NONE SEEN) 06/19/18 18:10 PT 11.0 SECONDS (9.5-11.5) 06/18/18 23:35 INR 1.06 (0.5-1.4) 06/18/18 23:35 PTT (Actin FS) 27.2 SECONDS (26.0-38.0) 06/18/18 23:35 Sodium 142 mEq/L (136-145) 06/20/18 05:55 Potassium 4.3 mEq/L (3.5-5.1) 06/20/18 05:55 Chloride 109 mEq/L (98-107) H 06/20/18 05:55 Carbon Dioxide 25.0 mEq/L (21.0-31.0) 06/20/18 05:55 Anion Gap 12.3 (7.0-16.0) 06/20/18 05:55 BUN 63 mg/dL (7-25) H 06/20/18 05:55 Creatinine 2.6 mg/dL (0.6-1.2) H 06/20/18 05:55 Est GFR ( Amer) TNP 06/20/18 05:55 Est GFR (Non-Af Amer) TNP 06/20/18 05:55 BUN/Creatinine Ratio 24.2 06/20/18 05:55 Glucose 89 mg/dL (70-105) 06/20/18 05:55 Uric Acid 8.1 mg/dL (2.3-6.6) H 06/19/18 15:30 Calcium 8.8 mg/dL (8.6-10.3) 06/20/18 05:55 Phosphorus 4.2 mg/dL (2.5-5.0) 06/20/18 05:55 Magnesium 2.3 mg/dL (1.9-2.7) 06/20/18 05:55 Total Bilirubin 0.4 mg/dL (0.3-1.0) 06/19/18 15:30 AST 15 U/L (13-39) 06/19/18 15:30 ALT 11 U/L (7-52) 06/19/18 15:30 Alkaline Phosphatase 73 U/L (34-104) 06/19/18 15:30 Troponin I 0.02 ng/mL (0.01-0.05) 06/18/18 23:35 B-Natriuretic Peptide 828.0 pg/mL (5.0-100.0) H 06/20/18 05:55 Total Protein 6.4 gm/dL (6.0-8.3) 06/19/18 15:30 Albumin 3.3 gm/dL (3.7-5.3) L 06/19/18 15:30 Globulin 3.1 gm/dL 06/19/18 15:30 Albumin/Globulin Ratio 1.1 (1.0-1.8) 06/19/18 15:30 Triglycerides 112 mg/dL (<150) 06/19/18 15:30 Cholesterol 189 mg/dL (<200) 06/19/18 15:30 LDL Cholesterol Direct 132 mg/dL (75-193) 06/19/18 15:30 HDL Cholesterol 45 mg/dL (23-92) 06/19/18 15:30 TSH 2.31 uIU/ml (0.34-5.60) 06/19/18 15:30 Urine Source MIDSTREAM 06/19/18 00:15 Urine Color YELLOW 06/19/18 00:15 Urine Clarity CLEAR (CLEAR) 06/19/18 00:15 Urine pH 6.0 (4.6 - 8.0) 06/19/18 00:15 Ur Specific [place] 1.015 (1.005-1.030) 06/19/18 00:15 Urine Protein 100 mg/dL (NEGATIVE) H 06/19/18 00:15 Urine Glucose (UA) NEGATIVE mg/dL (NEGATIVE) 06/19/18 00:15 Urine Ketones NEGATIVE mg/dL (NEGATIVE) 06/19/18 00:15 Urine Blood NEGATIVE (NEGATIVE) 06/19/18 00:15 Urine Nitrate NEGATIVE (NEGATIVE) 06/19/18 00:15 Urine Bilirubin NEGATIVE (NEGATIVE) 06/19/18 00:15 Urine Urobilinogen 0.2 E.U./dL (0.2 - 1.0) 06/19/18 00:15 Ur Leukocyte Esterase NEGATIVE (NEGATIVE) 06/19/18 00:15 Urine RBC 0-2 /hpf (0-5) 06/19/18 00:15 Urine WBC 0-2 /hpf (0-5) 06/19/18 00:15 Ur Epithelial Cells FEW /lpf (FEW) 06/19/18 00:15 Urine Bacteria FEW /hpf (NONE SEEN) 06/19/18 00:15 Ur Random Sodium 74 mmol/L 06/19/18 18:10 Urine Creatinine 64.0 mg/dl (28.0-217.0) 06/19/18 18:10 Microalb/Creat Ratio 640.2 mg/g creat (0.0-30.0) H 06/19/18 18:10 - Physical Exam Vitals and I&O: Vital Signs Temp 98.1 F 06/20/18 16:00 Pulse 75 06/20/18 16:00 Resp 20 06/20/18 16:00 BP 152/69 06/20/18 16:00 Pulse Ox 99 06/20/18 16:00 Intake & Output 06/20/18 06/20/18 06/21/18 06:59 18:59 06:59 Intake Total 50 1400 Balance 50 1400 Weight (lbs) 72.121 kg 71.668 kg Intake: Oral 50 1400 Other: # Voids 1 3 # Bowel Movements 0 0 Weight Source Bedscale Bedscale Active Medications: Current Medications Acetaminophen (Tylenol) 650 mg PO Q6HR PRN PRN Reason: Temp above 101F & Mild Pain Stop: 08/18/18 07:10 Acetaminophen/Hydrocodone Bitart ([place] 10 Mg/325 Mg) 1 tab PO Q4HR PRN PRN Reason: Pain (Moderate) Stop: 08/18/18 07:10 Last Admin: 06/20/18 16:09 Dose: 1 tab Albuterol Sulfate (Albuterol 2.5mg/3ml Neb Ud) 2.5 mg HHN TID PRN PRN Reason: Wheezing Albuterol/Ipratropium (Duoneb Neb) 3 ml HHN Q4HR PRN PRN Reason: Shortness of Breath or Wheeze Stop: 08/18/18 07:10 Amlodipine Besylate (Norvasc) 10 mg PO DAILY [facility] Stop: 08/18/18 08:59 Last Admin: 06/20/18 09:20 Dose: 10 mg Aspirin (Ecotrin) 81 mg PO DAILY [facility] Stop: 08/18/18 08:59 Last Admin: 06/20/18 09:15 Dose: 81 mg Atorvastatin Calcium (Lipitor) 20 mg PO HS [facility] Stop: 08/18/18 20:59 Last Admin: 06/19/18 21:10 Dose: 20 mg Bisacodyl (Dulcolax 10 Mg Supp) 10 mg RC DAILY PRN PRN Reason: Constipation Stop: 08/18/18 07:10 Camphor/Menthol (Bengay Greaseless 10%-15%) 1 appl TP QID PRN PRN Reason: Pain (Mild) Stop: 08/18/18 16:59 Carbamide Peroxide (Debrox Otic Drops) 2 drop EACH EAR BID PRN PRN Reason: EARWAX Stop: 08/18/18 07:10 Carvedilol (Coreg) 25 mg PO Q12HR [facility] Stop: 08/18/18 08:59 Last Admin: 06/20/18 09:18 Dose: 25 mg Diphenhydramine HCl (Benadryl) 25 mg PO Q6HR PRN PRN Reason: Itching Stop: 08/18/18 07:10 Last Admin: 06/19/18 09:15 Dose: 25 mg Docusate Sodium (Colace) 100 mg PO BID [facility] Stop: 08/18/18 08:59 Last Admin: 06/20/18 16:19 Dose: 100 mg Epoetin Cristian (Epogen) 10,000 units SUBQ MoWeFr [facility] Stop: 08/20/18 13:47 Ferrous Sulfate (Iron) 325 mg PO DAILY [facility] Stop: 08/18/18 08:59 Last Admin: 06/20/18 09:13 Dose: 325 mg Gabapentin (Neurontin) 600 mg PO TID [facility] Stop: 08/18/18 08:59 Last Admin: 06/20/18 14:12 Dose: 600 mg Guaifenesin (Robitussin) 200 mg PO Q4HR PRN PRN Reason: Cough Stop: 08/18/18 07:10 Hydromorphone HCl (Dilaudid) 1 mg IVP Q4HR PRN PRN Reason: Pain (Severe) Stop: 08/18/18 07:10 Last Admin: 06/20/18 14:12 Dose: 1 mg Magnesium Hydroxide (Milk Of Magnesia) 30 ml PO HS PRN PRN Reason: Constipation Stop: 08/18/18 07:10 Miscellaneous (Clinical Monitoring) 1 ea MC DAILY PRN PRN Reason: RENAL DOSING Stop: 08/18/18 16:50 Ondansetron HCl (Zofran Odt) 8 mg PO Q8HR PRN PRN Reason: Nausea / Vomiting Polyethylene Glycol (Miralax) 17 gm PO DAILY [facility] Stop: 08/18/18 08:59 Last Admin: 06/20/18 10:36 Dose: Not Given Vitamin B Complex/Vit C/Folic Acid (Vitamin B Complex W/Vitamin C) 1 tab PO DAILY [facility] Stop: 08/18/18 08:59 Last Admin: 06/20/18 09:15 Dose: 1 tab General: weak, congested, disheveled HEENT: NC/AT, PERRLA, EOMI, anicteric sclerae Neck: Supple, +2 carotid pulse wo bruit, + JVD Lungs: rales, ronchi Cardiovascular: RRR, Normal S1, Normal S2 Abdomen: soft, non-tender, tender, thin Extremities: clear, edema, pedal pulses Neurological: no change, lethargic, muscle weakness Internal Medicine Assmt/Plan - Assessment Assessment: ARF/chronic kidney disease: work up in progress; avoid nephrotoxic meds. CHF: EF 35%, continue meds; adjust accordingly. HTN: adjusting meds as needed. Chronic pain syndrome. COPD: RT protocol. First degree AV block? DVT prophylaxis. Nutritional Asmnt/Malnutr-PDOC - Dietary Evaluation Malnutrition Findings (Please click <Entered> for more info): Nutritional Asmnt/Malnutrition Start: 06/19/18 15: 27 Text: Status: Complete Freq: Protocol: Document 06/19/18 15:27 [email or web address] (Rec: 06/19/18 15:41 [email or web address] [email or web address]) Nutritional Asmnt/Malnutrition Patient General Information Nutritional Screening High Risk Diagnosis acute chronic kidney disease, CHF Pertinent Medical Hx/Surgical Hx CHF, osteonecrosis, polyneuropathy, cardiomegaly, chronic anemia, osteoarthritis , hyperlipidemia, osteoporosis , hearing loss, renal insufficiency, asthma Subjective Information Pt was seen sleeping at time of visit, did not wake to greeting. PO intake is 100% per RN. Renal ultrasound done today, findings reflect a degree of chronic parenchymal disease and bilateral renal cysts, per MD report. Current Diet Order/ Nutrition Support low sodium 2gm Pertinent Medications lipitor, d5-0.45ns, colace, iron, zofran, miralax, vit b complex w/ vit c Pertinent Labs 06/18 BUN 63, cr 2.6, alb 3.6 Nutritional Hx/Data Height 1.6 m Height (Calculated Centimeters) 160.0 Current Weight (lbs) 72.121 kg Weight (Calculated Kilograms) 72.1 Weight (Calculated Grams) 99177.2 [place] Body Weight 115 Body Mass Index (BMI) 28.1 Weight Status Overweight GI Symptoms GI Symptoms None Last BM not indicated Difficult in: None Food Allergies No Skin Integrity/Comment: intact Current %PO Good (75-100%) Estimated Nutritional Goals BEE in Kcals: Using Current wt Calories/Kcals/Kg 25-30 Kcals Calculated 1606-2121 Protein: Using Current wt Protein g/k.7-0.8 Protein Calculated 50-57 Fluid: ml 1697-1085 (1ml/kcal) Nutritional Problem 1. Problem Problem altered nutrition related labs Etiology renal dysfunction Signs/Symptoms: BUN 63, Cr 2.6 Malnutrition Alert Is there a minimum of two criteria No selected? Query Text:Check all the applicable criteria. A minimum of two criteria are recommended for diagnosis of either severe or non-severe malnutrition. Malnutrition Related to Morbid Obesity Malnutrition related to morbid obesity No Intervention/Recommendation Comments 1. Recommend adding Renal 50g diet. TAO Tran notified, will speak to MD. Continue with low sodium 2gm diet as ordered. 2. Monitor PO intake, wt, labs and skin integrity 3. F/U as high risk in 2-3 days Expected Outcomes/Goals Expected Outcomes/Goals 1. PO intake to meet at least 75% of nutritional needs. 2. Wt stability, skin to remain intact, labs to approach WNL. Reviewed by Vero Peterson RD
[2018-06-20] MEDS: Atorvastatin Calcium 10 MG TAB PO SCH (20:46)
[2018-06-21] MEDS: HYDROmorphone 1 mg/mL 1mL Syr IVP PRN ×4 (00:04→19:47)
[2018-06-21] MEDS: Hydrocodone/APAP 10 mg/325 mg Tab PO PRN ×2 (07:54→23:25)
[2018-06-21] MEDS: guaiFENesin 200 MG/10 ML UDC PO PRN (07:54)
[2018-06-21] MEDS: Vitamin B Complex w/Vitamin C Tab PO SCH (10:02)
[2018-06-21] MEDS: Ferrous Sulfate 325 MG TAB PO SCH (10:03)
[2018-06-21] MEDS: POLYETHYLENE GLYCOL 3350 17 GM PACK PO SCH (10:04)
--- NOTE | 2018-06-21 13:40 | General Progress Note ---
Subjective - Review of Systems Service Date: 06/21/18 Subjective: alert, comfortable Objective - Results Result Diagrams: 06/20/18 05:55 06/20/18 05:55 Recent Labs: Laboratory Last Values WBC 7.0 Th/cmm (4.8-10.8) 06/20/18 05:55 RBC 3.39 Mil/cmm (3.80-5.20) L 06/20/18 05:55 Hgb 9.6 gm/dL (12-16) L 06/20/18 05:55 Hct 29.3 % (41.0-60) L 06/20/18 05:55 MCV 86.3 fl (81-100) 06/20/18 05:55 MCH 28.2 pg (27.0-31.0) 06/20/18 05:55 MCHC Differential 32.6 pg (28.0-36.0) 06/20/18 05:55 RDW 14.2 % (11.5-20.0) 06/20/18 05:55 Plt Count 201 Th/cmm (150-400) 06/20/18 05:55 MPV 7.8 fl 06/20/18 05:55 Add Manual Diff YES 06/20/18 05:55 Neutrophils % 52.6 % (40.0-80.0) 06/19/18 15:30 Lymphocytes % 24.7 % (20.0-50.0) 06/19/18 15:30 Monocytes % 13.2 % (2.0-10.0) H 06/19/18 15:30 Eosinophils % 8.5 % (0.0-5.0) H 06/19/18 15:30 Basophils % 1.0 % (0.0-2.0) 06/19/18 15:30 Neutrophils (Manual) 45 % (40-80) 06/20/18 05:55 Lymphocytes 27 % (20-50) 06/20/18 05:55 Monocytes 19 % (2-10) H 06/20/18 05:55 Eosinophils 9 % (0-5) H 06/20/18 05:55 Platelet Estimate ADEQUATE (NORMAL) 06/20/18 05:55 Eos Smear Source URINE 06/19/18 18:10 Eos Smear Total Cells NONE SEEN (NONE SEEN) 06/19/18 18:10 PT 11.0 SECONDS (9.5-11.5) 06/18/18 23:35 INR 1.06 (0.5-1.4) 06/18/18 23:35 PTT (Actin FS) 27.2 SECONDS (26.0-38.0) 06/18/18 23:35 Sodium 142 mEq/L (136-145) 06/20/18 05:55 Potassium 4.3 mEq/L (3.5-5.1) 06/20/18 05:55 Chloride 109 mEq/L (98-107) H 06/20/18 05:55 Carbon Dioxide 25.0 mEq/L (21.0-31.0) 06/20/18 05:55 Anion Gap 12.3 (7.0-16.0) 06/20/18 05:55 BUN 63 mg/dL (7-25) H 06/20/18 05:55 Creatinine 2.6 mg/dL (0.6-1.2) H 06/20/18 05:55 Est GFR ( Amer) TNP 06/20/18 05:55 Est GFR (Non-Af Amer) TNP 06/20/18 05:55 BUN/Creatinine Ratio 24.2 06/20/18 05:55 Glucose 89 mg/dL (70-105) 06/20/18 05:55 Uric Acid 8.1 mg/dL (2.3-6.6) H 06/19/18 15:30 Calcium 8.8 mg/dL (8.6-10.3) 06/20/18 05:55 Phosphorus 4.2 mg/dL (2.5-5.0) 06/20/18 05:55 Magnesium 2.3 mg/dL (1.9-2.7) 06/20/18 05:55 Total Bilirubin 0.4 mg/dL (0.3-1.0) 06/19/18 15:30 AST 15 U/L (13-39) 06/19/18 15:30 ALT 11 U/L (7-52) 06/19/18 15:30 Alkaline Phosphatase 73 U/L (34-104) 06/19/18 15:30 Troponin I 0.02 ng/mL (0.01-0.05) 06/18/18 23:35 B-Natriuretic Peptide 828.0 pg/mL (5.0-100.0) H 06/20/18 05:55 Total Protein 6.4 gm/dL (6.0-8.3) 06/19/18 15:30 Albumin 3.3 gm/dL (3.7-5.3) L 06/19/18 15:30 Globulin 3.1 gm/dL 06/19/18 15:30 Albumin/Globulin Ratio 1.1 (1.0-1.8) 06/19/18 15:30 Triglycerides 112 mg/dL (<150) 06/19/18 15:30 Cholesterol 189 mg/dL (<200) 06/19/18 15:30 LDL Cholesterol Direct 132 mg/dL (75-193) 06/19/18 15:30 HDL Cholesterol 45 mg/dL (23-92) 06/19/18 15:30 TSH 2.31 uIU/ml (0.34-5.60) 06/19/18 15:30 Urine Source MIDSTREAM 06/19/18 00:15 Urine Color YELLOW 06/19/18 00:15 Urine Clarity CLEAR (CLEAR) 06/19/18 00:15 Urine pH 6.0 (4.6 - 8.0) 06/19/18 00:15 Ur Specific [place] 1.015 (1.005-1.030) 06/19/18 00:15 Urine Protein 100 mg/dL (NEGATIVE) H 06/19/18 00:15 Urine Glucose (UA) NEGATIVE mg/dL (NEGATIVE) 06/19/18 00:15 Urine Ketones NEGATIVE mg/dL (NEGATIVE) 06/19/18 00:15 Urine Blood NEGATIVE (NEGATIVE) 06/19/18 00:15 Urine Nitrate NEGATIVE (NEGATIVE) 06/19/18 00:15 Urine Bilirubin NEGATIVE (NEGATIVE) 06/19/18 00:15 Urine Urobilinogen 0.2 E.U./dL (0.2 - 1.0) 06/19/18 00:15 Ur Leukocyte Esterase NEGATIVE (NEGATIVE) 06/19/18 00:15 Urine RBC 0-2 /hpf (0-5) 06/19/18 00:15 Urine WBC 0-2 /hpf (0-5) 06/19/18 00:15 Ur Epithelial Cells FEW /lpf (FEW) 06/19/18 00:15 Urine Bacteria FEW /hpf (NONE SEEN) 06/19/18 00:15 Ur Random Sodium 74 mmol/L 06/19/18 18:10 Urine Creatinine 64.0 mg/dl (28.0-217.0) 06/19/18 18:10 Microalb/Creat Ratio 640.2 mg/g creat (0.0-30.0) H 06/19/18 18:10 - Physical Exam Vitals and I&O: Vital Signs Temp 97.8 F 06/21/18 11:38 Pulse 66 06/21/18 11:38 Resp 19 06/21/18 11:38 BP 135/74 06/21/18 11:38 Pulse Ox 98 06/21/18 11:38 Intake & Output 06/20/18 06/21/18 06/21/18 18:59 06:59 18:59 Intake Total 1400 240 Balance 1400 240 Weight (lbs) 71.668 kg 71.668 kg 71.668 kg Intake: Oral 1400 240 Other: # Voids 3 1 # Bowel Movements 0 Weight Source Bedscale Bedscale Bedscale Active Medications: Current Medications Acetaminophen (Tylenol) 650 mg PO Q6HR PRN PRN Reason: Temp above 101F & Mild Pain Stop: 08/18/18 07:10 Acetaminophen/Hydrocodone Bitart ([place] 10 Mg/325 Mg) 1 tab PO Q4HR PRN PRN Reason: Pain (Moderate) Stop: 08/18/18 07:10 Last Admin: 06/21/18 07:54 Dose: 1 tab Albuterol Sulfate (Albuterol 2.5mg/3ml Neb Ud) 2.5 mg HHN TID PRN PRN Reason: Wheezing Albuterol/Ipratropium (Duoneb Neb) 3 ml HHN Q4HR PRN PRN Reason: Shortness of Breath or Wheeze Stop: 08/18/18 07:10 Amlodipine Besylate (Norvasc) 10 mg PO DAILY [facility] Stop: 08/18/18 08:59 Last Admin: 06/21/18 10:03 Dose: 10 mg Aspirin (Ecotrin) 81 mg PO DAILY [facility] Stop: 08/18/18 08:59 Last Admin: 06/21/18 09:49 Dose: 81 mg Atorvastatin Calcium (Lipitor) 20 mg PO [facility] Stop: 08/18/18 20:59 Last Admin: 06/20/18 20:46 Dose: 20 mg Bisacodyl (Dulcolax 10 Mg Supp) 10 mg RC DAILY PRN PRN Reason: Constipation Stop: 08/18/18 07:10 Camphor/Menthol ([place] Greaseless 10%-15%) 1 appl TP QID PRN PRN Reason: Pain (Mild) Stop: 08/18/18 16:59 Carbamide Peroxide (Debrox Otic Drops) 2 drop EACH EAR BID PRN PRN Reason: EARWAX Stop: 08/18/18 07:10 Carvedilol (Coreg) 25 mg PO Q12HR [facility] Stop: 08/18/18 08:59 Last Admin: 06/21/18 09:49 Dose: 25 mg Diphenhydramine HCl (Benadryl) 25 mg PO Q6HR PRN PRN Reason: Itching Stop: 08/18/18 07:10 Last Admin: 06/19/18 09:15 Dose: 25 mg Docusate Sodium (Colace) 100 mg PO BID [facility] Stop: 08/18/18 08:59 Last Admin: 06/21/18 10:05 Dose: 100 mg Epoetin Cristian (Epogen) 10,000 units SUBQ MoWeFr [facility] Stop: 08/20/18 13:47 Ferrous Sulfate (Iron) 325 mg PO DAILY [facility] Stop: 08/18/18 08:59 Last Admin: 06/21/18 10:03 Dose: 325 mg Gabapentin (Neurontin) 600 mg PO TID [facility] Stop: 08/18/18 08:59 Last Admin: 06/21/18 10:02 Dose: 600 mg Guaifenesin (Robitussin) 200 mg PO Q4HR PRN PRN Reason: Cough Stop: 08/18/18 07:10 Last Admin: 06/21/18 07:54 Dose: 200 mg Hydromorphone HCl (Dilaudid) 1 mg IVP Q4HR PRN PRN Reason: Pain (Severe) Stop: 08/18/18 07:10 Last Admin: 06/21/18 06:03 Dose: 1 mg Magnesium Hydroxide (Milk Of Magnesia) 30 ml PO HS PRN PRN Reason: Constipation Stop: 08/18/18 07:10 Miscellaneous (Clinical Monitoring) 1 ea MC DAILY PRN PRN Reason: RENAL DOSING Stop: 08/18/18 16:50 Ondansetron HCl (Zofran Odt) 8 mg PO Q8HR PRN PRN Reason: Nausea / Vomiting Last Admin: 06/21/18 10:02 Dose: 8 mg Polyethylene Glycol (Miralax) 17 gm PO DAILY [facility] Stop: 08/18/18 08:59 Last Admin: 06/21/18 10:04 Dose: 17 gm Vitamin B Complex/Vit C/Folic Acid (Vitamin B Complex W/Vitamin C) 1 tab PO DAILY [facility] Stop: 08/18/18 08:59 Last Admin: 06/21/18 10:02 Dose: 1 tab General: Alert, No acute distress HEENT: Atraumatic, PERRLA, Mucous membr. moist/pink Neck: Supple, +2 carotid pulse wo bruit (flat) Cardiovascular: Regular rate, Normal S1, Normal S2 Lungs: Other (few rhonchi) Abdomen: Bowel sounds, Soft, Obese Extremities: no Edema Neurological: Normal speech, Normal tone, Sensation intact, Cranial nerves 3-12 NL, Reflexes 2+ Skin: no Rash Psych/Mental Status: Mood NL Assessment/Plan - Assessment Assessment: CKD Deaf DJD both Hips Ess Htn Dyslipidemia Osteoporosis Polyneuropathy COPD - Plan Plan: Lab - Result Diagrams 06/20/18 05:55 06/20/18 05:55 Current Medications Acetaminophen (Tylenol) 650 mg PO Q6HR PRN PRN Reason: Temp above 101F & Mild Pain Stop: 08/18/18 07:10 Acetaminophen/Hydrocodone Bitart ([place] 10 Mg/325 Mg) 1 tab PO Q4HR PRN PRN Reason: Pain (Moderate) Stop: 08/18/18 07:10 Albuterol Sulfate (Albuterol 2.5mg/3ml Neb Ud) 2.5 mg HHN TID PRN PRN Reason: Wheezing Albuterol/Ipratropium (Duoneb Neb) 3 ml HHN Q4HR PRN PRN Reason: Shortness of Breath or Wheeze Stop: 08/18/18 07:10 Amlodipine Besylate (Norvasc) 10 mg PO DAILY [facility] Stop: 08/18/18 08:59 Last Admin: 06/20/18 09:20 Dose: 10 mg Aspirin (Ecotrin) 81 mg PO DAILY [facility] Stop: 08/18/18 08:59 Last Admin: 06/20/18 09:15 Dose: 81 mg Atorvastatin Calcium (Lipitor) 20 mg PO HS [facility] Stop: 08/18/18 20:59 Last Admin: 06/19/18 21:10 Dose: 20 mg Bisacodyl (Dulcolax 10 Mg Supp) 10 mg RC DAILY PRN PRN Reason: Constipation Stop: 08/18/18 07:10 Camphor/Menthol ([place]eng[place] Greaseless 10%-15%) 1 appl TP QID PRN PRN Reason: Pain (Mild) Stop: 08/18/18 16:59 Carbamide Peroxide (Debrox Otic Drops) 2 drop EACH EAR BID PRN PRN Reason: EARWAX Stop: 08/18/18 07:10 Carvedilol (Coreg) 25 mg PO Q12HR [facility] Stop: 08/18/18 08:59 Last Admin: 06/20/18 09:18 Dose: 25 mg Diphenhydramine HCl (Benadryl) 25 mg PO Q6HR PRN PRN Reason: Itching Stop: 08/18/18 07:10 Last Admin: 06/19/18 09:15 Dose: 25 mg Docusate Sodium (Colace) 100 mg PO BID [facility] Stop: 08/18/18 08:59 Last Admin: 06/20/18 09:14 Dose: 100 mg Ferrous Sulfate (Iron) 325 mg PO DAILY [facility] Stop: 08/18/18 08:59 Last Admin: 06/20/18 09:13 Dose: 325 mg Gabapentin (Neurontin) 600 mg PO TID [facility] Stop: 08/18/18 08:59 Last Admin: 06/20/18 09:14 Dose: 600 mg Guaifenesin (Robitussin) 200 mg PO Q4HR PRN PRN Reason: Cough Stop: 08/18/18 07:10 Hydromorphone HCl (Dilaudid) 1 mg IVP Q4HR PRN PRN Reason: Pain (Severe) Stop: 08/18/18 07:10 Last Admin: 06/20/18 09:10 Dose: 1 mg Magnesium Hydroxide (Milk Of Magnesia) 30 ml PO HS PRN PRN Reason: Constipation Stop: 08/18/18 07:10 Miscellaneous (Clinical Monitoring) 1 ea MC DAILY PRN PRN Reason: RENAL DOSING Stop: 08/18/18 16:50 Ondansetron HCl (Zofran Odt) 8 mg PO Q8HR PRN PRN Reason: Nausea / Vomiting Polyethylene Glycol (Miralax) 17 gm PO DAILY [facility] Stop: 08/18/18 08:59 Last Admin: 06/20/18 10:36 Dose: Not Given Vitamin B Complex/Vit C/Folic Acid (Vitamin B Complex W/Vitamin C) 1 tab PO DAILY [facility] Stop: 08/18/18 08:59 Last Admin: 06/20/18 09:15 Dose: 1 tab Lab - Result Diagrams 06/20/18 05:55 06/20/18 05:55 Kidney fnc stable w/ Cr of 2.6 Renal US revealed b/l renal cysts start Epo for anemia encourage po fluid intake Nutritional Asmnt/Malnutr-PDOC - Dietary Evaluation Malnutrition Findings (Please click <Entered> for more info): Nutritional Asmnt/Malnutrition Start: 06/19/18 15: 27 Text: Status: Complete Freq: Protocol: Document 06/19/18 15:27 [email or web address] (Rec: 06/19/18 15:41 [email or web address] [email or web address]) Nutritional Asmnt/Malnutrition Patient General Information Nutritional Screening High Risk Diagnosis acute chronic kidney disease, CHF Pertinent Medical Hx/Surgical Hx CHF, osteonecrosis, polyneuropathy, cardiomegaly, chronic anemia, osteoarthritis , hyperlipidemia, osteoporosis , hearing loss, renal insufficiency, asthma Subjective Information Pt was seen sleeping at time of visit, did not wake to greeting. PO intake is 100% per RN. Renal ultrasound done today, findings reflect a degree of chronic parenchymal disease and bilateral renal cysts, per MD report. Current Diet Order/ Nutrition Support low sodium 2gm Pertinent Medications lipitor, d5-0.45ns, colace, iron, zofran, miralax, vit b complex w/ vit c Pertinent Labs 06/18 BUN 63, cr 2.6, alb 3.6 Nutritional Hx/Data Height 1.6 m Height (Calculated Centimeters) 160.0 Current Weight (lbs) 72.121 kg Weight (Calculated Kilograms) 72.1 Weight (Calculated Grams) 25980.2 [place] Body Weight 115 Body Mass Index (BMI) 28.1 Weight Status Overweight GI Symptoms GI Symptoms None Last BM not indicated Difficult in: None Food Allergies No Skin Integrity/Comment: intact Current %PO Good (75-100%) Estimated Nutritional Goals BEE in Kcals: Using Current wt Calories/Kcals/Kg 25-30 Kcals Calculated 4501-7341 Protein: Using Current wt Protein g/k.7-0.8 Protein Calculated 50-57 Fluid: ml 5310-0681 (1ml/kcal) Nutritional Problem 1. Problem Problem altered nutrition related labs Etiology renal dysfunction Signs/Symptoms: BUN 63, Cr 2.6 Malnutrition Alert Is there a minimum of two criteria No selected? Query Text:Check all the applicable criteria. A minimum of two criteria are recommended for diagnosis of either severe or non-severe malnutrition. Malnutrition Related to Morbid Obesity Malnutrition related to morbid obesity No Intervention/Recommendation Comments 1. Recommend adding Renal 50g diet. TAO Tran notified, will speak to MD. Continue with low sodium 2gm diet as ordered. 2. Monitor PO intake, wt, labs and skin integrity 3. F/U as high risk in 2-3 days Expected Outcomes/Goals Expected Outcomes/Goals 1. PO intake to meet at least 75% of nutritional needs. 2. Wt stability, skin to remain intact, labs to approach WNL. Reviewed by Vero Peterson RD
--- NOTE | 2018-06-21 14:48 | General Progress Note ---
Subjective - Review of Systems Service Date: 06/21/18 Subjective: Patient has no complaint of chest pain shortness of breath patient is deaf No complaining of shortness of breath Objective - Results Result Diagrams: 06/20/18 05:55 06/20/18 05:55 Recent Labs: Laboratory Last Values WBC 7.0 Th/cmm (4.8-10.8) 06/20/18 05:55 RBC 3.39 Mil/cmm (3.80-5.20) L 06/20/18 05:55 Hgb 9.6 gm/dL (12-16) L 06/20/18 05:55 Hct 29.3 % (41.0-60) L 06/20/18 05:55 MCV 86.3 fl (81-100) 06/20/18 05:55 MCH 28.2 pg (27.0-31.0) 06/20/18 05:55 MCHC Differential 32.6 pg (28.0-36.0) 06/20/18 05:55 RDW 14.2 % (11.5-20.0) 06/20/18 05:55 Plt Count 201 Th/cmm (150-400) 06/20/18 05:55 MPV 7.8 fl 06/20/18 05:55 Add Manual Diff YES 06/20/18 05:55 Neutrophils % 52.6 % (40.0-80.0) 06/19/18 15:30 Lymphocytes % 24.7 % (20.0-50.0) 06/19/18 15:30 Monocytes % 13.2 % (2.0-10.0) H 06/19/18 15:30 Eosinophils % 8.5 % (0.0-5.0) H 06/19/18 15:30 Basophils % 1.0 % (0.0-2.0) 06/19/18 15:30 Neutrophils (Manual) 45 % (40-80) 06/20/18 05:55 Lymphocytes 27 % (20-50) 06/20/18 05:55 Monocytes 19 % (2-10) H 06/20/18 05:55 Eosinophils 9 % (0-5) H 06/20/18 05:55 Platelet Estimate ADEQUATE (NORMAL) 06/20/18 05:55 Eos Smear Source URINE 06/19/18 18:10 Eos Smear Total Cells NONE SEEN (NONE SEEN) 06/19/18 18:10 PT 11.0 SECONDS (9.5-11.5) 06/18/18 23:35 INR 1.06 (0.5-1.4) 06/18/18 23:35 PTT (Actin FS) 27.2 SECONDS (26.0-38.0) 06/18/18 23:35 Sodium 142 mEq/L (136-145) 06/20/18 05:55 Potassium 4.3 mEq/L (3.5-5.1) 06/20/18 05:55 Chloride 109 mEq/L (98-107) H 06/20/18 05:55 Carbon Dioxide 25.0 mEq/L (21.0-31.0) 06/20/18 05:55 Anion Gap 12.3 (7.0-16.0) 06/20/18 05:55 BUN 63 mg/dL (7-25) H 06/20/18 05:55 Creatinine 2.6 mg/dL (0.6-1.2) H 06/20/18 05:55 Est GFR ( Amer) TNP 06/20/18 05:55 Est GFR (Non-Af Amer) TNP 06/20/18 05:55 BUN/Creatinine Ratio 24.2 06/20/18 05:55 Glucose 89 mg/dL (70-105) 06/20/18 05:55 Uric Acid 8.1 mg/dL (2.3-6.6) H 06/19/18 15:30 Calcium 8.8 mg/dL (8.6-10.3) 06/20/18 05:55 Phosphorus 4.2 mg/dL (2.5-5.0) 06/20/18 05:55 Magnesium 2.3 mg/dL (1.9-2.7) 06/20/18 05:55 Total Bilirubin 0.4 mg/dL (0.3-1.0) 06/19/18 15:30 AST 15 U/L (13-39) 06/19/18 15:30 ALT 11 U/L (7-52) 06/19/18 15:30 Alkaline Phosphatase 73 U/L (34-104) 06/19/18 15:30 Troponin I 0.02 ng/mL (0.01-0.05) 06/18/18 23:35 B-Natriuretic Peptide 828.0 pg/mL (5.0-100.0) H 06/20/18 05:55 Total Protein 6.4 gm/dL (6.0-8.3) 06/19/18 15:30 Albumin 3.3 gm/dL (3.7-5.3) L 06/19/18 15:30 Globulin 3.1 gm/dL 06/19/18 15:30 Albumin/Globulin Ratio 1.1 (1.0-1.8) 06/19/18 15:30 Triglycerides 112 mg/dL (<150) 06/19/18 15:30 Cholesterol 189 mg/dL (<200) 06/19/18 15:30 LDL Cholesterol Direct 132 mg/dL (75-193) 06/19/18 15:30 HDL Cholesterol 45 mg/dL (23-92) 06/19/18 15:30 TSH 2.31 uIU/ml (0.34-5.60) 06/19/18 15:30 Urine Source MIDSTREAM 06/19/18 00:15 Urine Color YELLOW 06/19/18 00:15 Urine Clarity CLEAR (CLEAR) 06/19/18 00:15 Urine pH 6.0 (4.6 - 8.0) 06/19/18 00:15 Ur Specific [place] 1.015 (1.005-1.030) 06/19/18 00:15 Urine Protein 100 mg/dL (NEGATIVE) H 06/19/18 00:15 Urine Glucose (UA) NEGATIVE mg/dL (NEGATIVE) 06/19/18 00:15 Urine Ketones NEGATIVE mg/dL (NEGATIVE) 06/19/18 00:15 Urine Blood NEGATIVE (NEGATIVE) 06/19/18 00:15 Urine Nitrate NEGATIVE (NEGATIVE) 06/19/18 00:15 Urine Bilirubin NEGATIVE (NEGATIVE) 06/19/18 00:15 Urine Urobilinogen 0.2 E.U./dL (0.2 - 1.0) 06/19/18 00:15 Ur Leukocyte Esterase NEGATIVE (NEGATIVE) 06/19/18 00:15 Urine RBC 0-2 /hpf (0-5) 06/19/18 00:15 Urine WBC 0-2 /hpf (0-5) 06/19/18 00:15 Ur Epithelial Cells FEW /lpf (FEW) 06/19/18 00:15 Urine Bacteria FEW /hpf (NONE SEEN) 06/19/18 00:15 Ur Random Sodium 74 mmol/L 06/19/18 18:10 Urine Creatinine 64.0 mg/dl (28.0-217.0) 06/19/18 18:10 Microalb/Creat Ratio 640.2 mg/g creat (0.0-30.0) H 06/19/18 18:10 - Physical Exam Vitals and I&O: Vital Signs Temp 97.8 F 06/21/18 11:38 Pulse 66 06/21/18 11:38 Resp 19 06/21/18 11:38 BP 135/74 06/21/18 11:38 Pulse Ox 98 06/21/18 11:38 Intake & Output 06/20/18 06/21/18 06/21/18 18:59 06:59 18:59 Intake Total 1400 240 Balance 1400 240 Weight (lbs) 71.668 kg 71.668 kg 71.668 kg Intake: Oral 1400 240 Other: # Voids 3 1 # Bowel Movements 0 Weight Source Bedscale Bedscale Bedscale Active Medications: Current Medications Acetaminophen (Tylenol) 650 mg PO Q6HR PRN PRN Reason: Temp above 101F & Mild Pain Stop: 08/18/18 07:10 Acetaminophen/Hydrocodone Bitart ([place] 10 Mg/325 Mg) 1 tab PO Q4HR PRN PRN Reason: Pain (Moderate) Stop: 08/18/18 07:10 Last Admin: 06/21/18 07:54 Dose: 1 tab Albuterol Sulfate (Albuterol 2.5mg/3ml Neb Ud) 2.5 mg HHN TID PRN PRN Reason: Wheezing Albuterol/Ipratropium (Duoneb Neb) 3 ml HHN Q4HR PRN PRN Reason: Shortness of Breath or Wheeze Stop: 08/18/18 07:10 Amlodipine Besylate (Norvasc) 10 mg PO DAILY [facility] Stop: 08/18/18 08:59 Last Admin: 06/21/18 10:03 Dose: 10 mg Aspirin (Ecotrin) 81 mg PO DAILY [facility] Stop: 08/18/18 08:59 Last Admin: 06/21/18 09:49 Dose: 81 mg Atorvastatin Calcium (Lipitor) 20 mg PO [facility] Stop: 08/18/18 20:59 Last Admin: 06/20/18 20:46 Dose: 20 mg Bisacodyl (Dulcolax 10 Mg Supp) 10 mg RC DAILY PRN PRN Reason: Constipation Stop: 08/18/18 07:10 Camphor/Menthol (Bengay Greaseless 10%-15%) 1 appl TP QID PRN PRN Reason: Pain (Mild) Stop: 08/18/18 16:59 Carbamide Peroxide (Debrox Otic Drops) 2 drop EACH EAR BID PRN PRN Reason: EARWAX Stop: 08/18/18 07:10 Carvedilol (Coreg) 25 mg PO Q12HR [facility] Stop: 08/18/18 08:59 Last Admin: 06/21/18 09:49 Dose: 25 mg Diphenhydramine HCl (Benadryl) 25 mg PO Q6HR PRN PRN Reason: Itching Stop: 08/18/18 07:10 Last Admin: 06/19/18 09:15 Dose: 25 mg Docusate Sodium (Colace) 100 mg PO BID [facility] Stop: 08/18/18 08:59 Last Admin: 06/21/18 10:05 Dose: 100 mg Epoetin Cristian (Epogen) 10,000 units SUBQ MoWeFr [facility] Stop: 08/20/18 13:47 Ferrous Sulfate (Iron) 325 mg PO DAILY [facility] Stop: 08/18/18 08:59 Last Admin: 06/21/18 10:03 Dose: 325 mg Gabapentin (Neurontin) 600 mg PO TID [facility] Stop: 08/18/18 08:59 Last Admin: 06/21/18 10:02 Dose: 600 mg Guaifenesin (Robitussin) 200 mg PO Q4HR PRN PRN Reason: Cough Stop: 08/18/18 07:10 Last Admin: 06/21/18 07:54 Dose: 200 mg Hydromorphone HCl (Dilaudid) 1 mg IVP Q4HR PRN PRN Reason: Pain (Severe) Stop: 08/18/18 07:10 Last Admin: 06/21/18 06:03 Dose: 1 mg Magnesium Hydroxide (Milk Of Magnesia) 30 ml PO HS PRN PRN Reason: Constipation Stop: 08/18/18 07:10 Miscellaneous (Clinical Monitoring) 1 ea MC DAILY PRN PRN Reason: RENAL DOSING Stop: 08/18/18 16:50 Ondansetron HCl (Zofran Odt) 8 mg PO Q8HR PRN PRN Reason: Nausea / Vomiting Last Admin: 06/21/18 10:02 Dose: 8 mg Polyethylene Glycol (Miralax) 17 gm PO DAILY [facility] Stop: 08/18/18 08:59 Last Admin: 06/21/18 10:04 Dose: 17 gm Vitamin B Complex/Vit C/Folic Acid (Vitamin B Complex W/Vitamin C) 1 tab PO DAILY [facility] Stop: 08/18/18 08:59 Last Admin: 06/21/18 10:02 Dose: 1 tab General: Alert, No acute distress HEENT: Atraumatic, PERRLA, Mucous membr. moist/pink Neck: Supple, +2 carotid pulse wo bruit (flat) Cardiovascular: Regular rate, Normal S1, Normal S2 Lungs: Other (few rhonchi) Abdomen: Bowel sounds, Soft, Obese Extremities: no Edema Neurological: Normal speech, Normal tone, Sensation intact, Cranial nerves 3-12 NL, Reflexes 2+ Skin: no Rash Psych/Mental Status: Mood NL Assessment/Plan - Assessment Assessment: Congestive heart failure systolic dysfunction acute Hypertension Hyperlipidemia CKD stage V Deafness Osteoporosis Iron deficiency anemia COPD Echocardiogram ejection fraction 38% left atrial enlargement and right atrial enlargement mild mitral regurgitation and mild tricuspid regurgitation mild pulmonary hypertension right ventricular systolic pressure 46 mmHg - Plan Plan: Continue present management as renal evaluation Echocardiogram ejection fraction 38% mild mitral regurgitation mild tricuspid regurgitation left atrial enlargement and right atrial enlargement cardiomyopathy BNP slightly elevated Nutritional Asmnt/Malnutr-PDOC - Dietary Evaluation Malnutrition Findings (Please click <Entered> for more info): Nutritional Asmnt/Malnutrition Start: 06/19/18 15: 27 Text: Status: Complete Freq: Protocol: Document 06/19/18 15:27 [email or web address] (Rec: 06/19/18 15:41 [email or web address] [email or web address]) Nutritional Asmnt/Malnutrition Patient General Information Nutritional Screening High Risk Diagnosis acute chronic kidney disease, CHF Pertinent Medical Hx/Surgical Hx CHF, osteonecrosis, polyneuropathy, cardiomegaly, chronic anemia, osteoarthritis , hyperlipidemia, osteoporosis , hearing loss, renal insufficiency, asthma Subjective Information Pt was seen sleeping at time of visit, did not wake to greeting. PO intake is 100% per RN. Renal ultrasound done today, findings reflect a degree of chronic parenchymal disease and bilateral renal cysts, per MD report. Current Diet Order/ Nutrition Support low sodium 2gm Pertinent Medications lipitor, d5-0.45ns, colace, iron, zofran, miralax, vit b complex w/ vit c Pertinent Labs 06/18 BUN 63, cr 2.6, alb 3.6 Nutritional Hx/Data Height 1.6 m Height (Calculated Centimeters) 160.0 Current Weight (lbs) 72.121 kg Weight (Calculated Kilograms) 72.1 Weight (Calculated Grams) 05042.2 [place] Body Weight 115 Body Mass Index (BMI) 28.1 Weight Status Overweight GI Symptoms GI Symptoms None Last BM not indicated Difficult in: None Food Allergies No Skin Integrity/Comment: intact Current %PO Good (75-100%) Estimated Nutritional Goals BEE in Kcals: Using Current wt Calories/Kcals/Kg 25-30 Kcals Calculated 4900-0010 Protein: Using Current wt Protein g/k.7-0.8 Protein Calculated 50-57 Fluid: ml 6549-2800 (1ml/kcal) Nutritional Problem 1. Problem Problem altered nutrition related labs Etiology renal dysfunction Signs/Symptoms: BUN 63, Cr 2.6 Malnutrition Alert Is there a minimum of two criteria No selected? Query Text:Check all the applicable criteria. A minimum of two criteria are recommended for diagnosis of either severe or non-severe malnutrition. Malnutrition Related to Morbid Obesity Malnutrition related to morbid obesity No Intervention/Recommendation Comments 1. Recommend adding Renal 50g diet. RN Marc notified, will speak to MD. Continue with low sodium 2gm diet as ordered. 2. Monitor PO intake, wt, labs and skin integrity 3. F/U as high risk in 2-3 days Expected Outcomes/Goals Expected Outcomes/Goals 1. PO intake to meet at least 75% of nutritional needs. 2. Wt stability, skin to remain intact, labs to approach WNL. Reviewed by Vero Peterson RD
[2018-06-21] MEDS: Epoetin Alfa 20000 Units/mL Vial SUBQ SCH (17:09)
--- NOTE | 2018-06-21 18:26 | Internal Medicine Prog Note ---
Internal Medicine Subjective - Subjective Service Date: 06/21/18 Patient seen and examined:: without staff Patient is:: awake, verbal, interactive, in bed Patient Complaints of:: congestion Per staff patient has:: no adverse event Internal Medicine Objective - Results Result Diagrams: 06/20/18 05:55 06/20/18 05:55 Recent Labs: Laboratory Last Values WBC 7.0 Th/cmm (4.8-10.8) 06/20/18 05:55 RBC 3.39 Mil/cmm (3.80-5.20) L 06/20/18 05:55 Hgb 9.6 gm/dL (12-16) L 06/20/18 05:55 Hct 29.3 % (41.0-60) L 06/20/18 05:55 MCV 86.3 fl (81-100) 06/20/18 05:55 MCH 28.2 pg (27.0-31.0) 06/20/18 05:55 MCHC Differential 32.6 pg (28.0-36.0) 06/20/18 05:55 RDW 14.2 % (11.5-20.0) 06/20/18 05:55 Plt Count 201 Th/cmm (150-400) 06/20/18 05:55 MPV 7.8 fl 06/20/18 05:55 Add Manual Diff YES 06/20/18 05:55 Neutrophils % 52.6 % (40.0-80.0) 06/19/18 15:30 Lymphocytes % 24.7 % (20.0-50.0) 06/19/18 15:30 Monocytes % 13.2 % (2.0-10.0) H 06/19/18 15:30 Eosinophils % 8.5 % (0.0-5.0) H 06/19/18 15:30 Basophils % 1.0 % (0.0-2.0) 06/19/18 15:30 Neutrophils (Manual) 45 % (40-80) 06/20/18 05:55 Lymphocytes 27 % (20-50) 06/20/18 05:55 Monocytes 19 % (2-10) H 06/20/18 05:55 Eosinophils 9 % (0-5) H 06/20/18 05:55 Platelet Estimate ADEQUATE (NORMAL) 06/20/18 05:55 Eos Smear Source URINE 06/19/18 18:10 Eos Smear Total Cells NONE SEEN (NONE SEEN) 06/19/18 18:10 PT 11.0 SECONDS (9.5-11.5) 06/18/18 23:35 INR 1.06 (0.5-1.4) 06/18/18 23:35 PTT (Actin FS) 27.2 SECONDS (26.0-38.0) 06/18/18 23:35 Sodium 142 mEq/L (136-145) 06/20/18 05:55 Potassium 4.3 mEq/L (3.5-5.1) 06/20/18 05:55 Chloride 109 mEq/L (98-107) H 06/20/18 05:55 Carbon Dioxide 25.0 mEq/L (21.0-31.0) 06/20/18 05:55 Anion Gap 12.3 (7.0-16.0) 06/20/18 05:55 BUN 63 mg/dL (7-25) H 06/20/18 05:55 Creatinine 2.6 mg/dL (0.6-1.2) H 06/20/18 05:55 Est GFR ( Amer) TNP 06/20/18 05:55 Est GFR (Non-Af Amer) TNP 06/20/18 05:55 BUN/Creatinine Ratio 24.2 06/20/18 05:55 Glucose 89 mg/dL (70-105) 06/20/18 05:55 Uric Acid 8.1 mg/dL (2.3-6.6) H 06/19/18 15:30 Calcium 8.8 mg/dL (8.6-10.3) 06/20/18 05:55 Phosphorus 4.2 mg/dL (2.5-5.0) 06/20/18 05:55 Magnesium 2.3 mg/dL (1.9-2.7) 06/20/18 05:55 Total Bilirubin 0.4 mg/dL (0.3-1.0) 06/19/18 15:30 AST 15 U/L (13-39) 06/19/18 15:30 ALT 11 U/L (7-52) 06/19/18 15:30 Alkaline Phosphatase 73 U/L (34-104) 06/19/18 15:30 Troponin I 0.02 ng/mL (0.01-0.05) 06/18/18 23:35 B-Natriuretic Peptide 828.0 pg/mL (5.0-100.0) H 06/20/18 05:55 Total Protein 6.4 gm/dL (6.0-8.3) 06/19/18 15:30 Albumin 3.3 gm/dL (3.7-5.3) L 06/19/18 15:30 Globulin 3.1 gm/dL 06/19/18 15:30 Albumin/Globulin Ratio 1.1 (1.0-1.8) 06/19/18 15:30 Triglycerides 112 mg/dL (<150) 06/19/18 15:30 Cholesterol 189 mg/dL (<200) 06/19/18 15:30 LDL Cholesterol Direct 132 mg/dL (75-193) 06/19/18 15:30 HDL Cholesterol 45 mg/dL (23-92) 06/19/18 15:30 TSH 2.31 uIU/ml (0.34-5.60) 06/19/18 15:30 Urine Source MIDSTREAM 06/19/18 00:15 Urine Color YELLOW 06/19/18 00:15 Urine Clarity CLEAR (CLEAR) 06/19/18 00:15 Urine pH 6.0 (4.6 - 8.0) 06/19/18 00:15 Ur Specific [place] 1.015 (1.005-1.030) 06/19/18 00:15 Urine Protein 100 mg/dL (NEGATIVE) H 06/19/18 00:15 Urine Glucose (UA) NEGATIVE mg/dL (NEGATIVE) 06/19/18 00:15 Urine Ketones NEGATIVE mg/dL (NEGATIVE) 06/19/18 00:15 Urine Blood NEGATIVE (NEGATIVE) 06/19/18 00:15 Urine Nitrate NEGATIVE (NEGATIVE) 06/19/18 00:15 Urine Bilirubin NEGATIVE (NEGATIVE) 06/19/18 00:15 Urine Urobilinogen 0.2 E.U./dL (0.2 - 1.0) 06/19/18 00:15 Ur Leukocyte Esterase NEGATIVE (NEGATIVE) 06/19/18 00:15 Urine RBC 0-2 /hpf (0-5) 06/19/18 00:15 Urine WBC 0-2 /hpf (0-5) 06/19/18 00:15 Ur Epithelial Cells FEW /lpf (FEW) 06/19/18 00:15 Urine Bacteria FEW /hpf (NONE SEEN) 06/19/18 00:15 Ur Random Sodium 74 mmol/L 06/19/18 18:10 Urine Creatinine 64.0 mg/dl (28.0-217.0) 06/19/18 18:10 Microalb/Creat Ratio 640.2 mg/g creat (0.0-30.0) H 06/19/18 18:10 - Physical Exam Vitals and I&O: Vital Signs Temp 97.4 F 06/21/18 15:35 Pulse 71 06/21/18 15:35 Resp 18 06/21/18 16:00 BP 143/68 06/21/18 15:35 Pulse Ox 98 06/21/18 15:35 Intake & Output 06/20/18 06/21/18 06/21/18 18:59 06:59 18:59 Intake Total 1400 240 Balance 1400 240 Weight (lbs) 71.668 kg 71.668 kg 71.668 kg Intake: Oral 1400 240 Other: # Voids 3 1 # Bowel Movements 0 Weight Source Bedscale Bedscale Bedscale Active Medications: Current Medications Acetaminophen (Tylenol) 650 mg PO Q6HR PRN PRN Reason: Temp above 101F & Mild Pain Stop: 08/18/18 07:10 Acetaminophen/Hydrocodone Bitart ([place] 10 Mg/325 Mg) 1 tab PO Q4HR PRN PRN Reason: Pain (Moderate) Stop: 08/18/18 07:10 Last Admin: 06/21/18 07:54 Dose: 1 tab Albuterol Sulfate (Albuterol 2.5mg/3ml Neb Ud) 2.5 mg HHN TID PRN PRN Reason: Wheezing Albuterol/Ipratropium (Duoneb Neb) 3 ml HHN Q4HR PRN PRN Reason: Shortness of Breath or Wheeze Stop: 08/18/18 07:10 Amlodipine Besylate (Norvasc) 10 mg PO DAILY [facility] Stop: 08/18/18 08:59 Last Admin: 06/21/18 10:03 Dose: 10 mg Aspirin (Ecotrin) 81 mg PO DAILY [facility] Stop: 08/18/18 08:59 Last Admin: 06/21/18 09:49 Dose: 81 mg Atorvastatin Calcium (Lipitor) 20 mg PO HS [facility] Stop: 08/18/18 20:59 Last Admin: 06/20/18 20:46 Dose: 20 mg Bisacodyl (Dulcolax 10 Mg Supp) 10 mg RC DAILY PRN PRN Reason: Constipation Stop: 08/18/18 07:10 Camphor/Menthol ([place] Greaseless 10%-15%) 1 appl TP QID PRN PRN Reason: Pain (Mild) Stop: 08/18/18 16:59 Carbamide Peroxide (Debrox Otic Drops) 2 drop EACH EAR BID PRN PRN Reason: EARWAX Stop: 08/18/18 07:10 Carvedilol (Coreg) 25 mg PO Q12HR [facility] Stop: 08/18/18 08:59 Last Admin: 06/21/18 09:49 Dose: 25 mg Diphenhydramine HCl (Benadryl) 25 mg PO Q6HR PRN PRN Reason: Itching Stop: 08/18/18 07:10 Last Admin: 06/19/18 09:15 Dose: 25 mg Docusate Sodium (Colace) 100 mg PO BID [facility] Stop: 08/18/18 08:59 Last Admin: 06/21/18 17:08 Dose: 100 mg Epoetin Cristian (Epogen) 10,000 units SUBQ MoWeFr [facility] Stop: 08/20/18 13:47 Last Admin: 06/21/18 17:09 Dose: 10,000 units Ferrous Sulfate (Iron) 325 mg PO DAILY [facility] Stop: 08/18/18 08:59 Last Admin: 06/21/18 10:03 Dose: 325 mg Gabapentin (Neurontin) 600 mg PO TID [facility] Stop: 08/18/18 08:59 Last Admin: 06/21/18 14:00 Dose: 600 mg Guaifenesin (Robitussin) 200 mg PO Q4HR PRN PRN Reason: Cough Stop: 08/18/18 07:10 Last Admin: 06/21/18 07:54 Dose: 200 mg Hydromorphone HCl (Dilaudid) 1 mg IVP Q4HR PRN PRN Reason: Pain (Severe) Stop: 08/18/18 07:10 Last Admin: 06/21/18 15:10 Dose: 1 mg Magnesium Hydroxide (Milk Of Magnesia) 30 ml PO HS PRN PRN Reason: Constipation Stop: 08/18/18 07:10 Miscellaneous (Clinical Monitoring) 1 ea MC DAILY PRN PRN Reason: RENAL DOSING Stop: 08/18/18 16:50 Ondansetron HCl (Zofran Odt) 8 mg PO Q8HR PRN PRN Reason: Nausea / Vomiting Last Admin: 06/21/18 17:08 Dose: 8 mg Polyethylene Glycol (Miralax) 17 gm PO DAILY [facility] Stop: 08/18/18 08:59 Last Admin: 06/21/18 10:04 Dose: 17 gm Vitamin B Complex/Vit C/Folic Acid (Vitamin B Complex W/Vitamin C) 1 tab PO DAILY [facility] Stop: 08/18/18 08:59 Last Admin: 06/21/18 10:02 Dose: 1 tab General: weak, congested, disheveled HEENT: NC/AT, PERRLA, EOMI, anicteric sclerae Neck: Supple, +2 carotid pulse wo bruit, + JVD Lungs: rales, ronchi Cardiovascular: RRR, Normal S1, Normal S2 Abdomen: soft, non-tender, tender, thin Extremities: clear, edema, pedal pulses Neurological: no change, lethargic, muscle weakness Internal Medicine Assmt/Plan - Assessment Assessment: COPD: RT protocol. ARF/chronic kidney disease: work up in progress; avoid nephrotoxic meds. CHF: EF 35%, continue meds; adjust accordingly. HTN: adjusting meds as needed. Chronic pain syndrome. First degree AV block? DVT prophylaxis. Nutritional Asmnt/Malnutr-PDOC - Dietary Evaluation Malnutrition Findings (Please click <Entered> for more info): Nutritional Asmnt/Malnutrition Start: 06/19/18 15: 27 Text: Status: Complete Freq: Protocol: Document 06/19/18 15:27 [email or web address] (Rec: 06/19/18 15:41 [email or web address] [email or web address]) Nutritional Asmnt/Malnutrition Patient General Information Nutritional Screening High Risk Diagnosis acute chronic kidney disease, CHF Pertinent Medical Hx/Surgical Hx CHF, osteonecrosis, polyneuropathy, cardiomegaly, chronic anemia, osteoarthritis , hyperlipidemia, osteoporosis , hearing loss, renal insufficiency, asthma Subjective Information Pt was seen sleeping at time of visit, did not wake to greeting. PO intake is 100% per RN. Renal ultrasound done today, findings reflect a degree of chronic parenchymal disease and bilateral renal cysts, per MD report. Current Diet Order/ Nutrition Support low sodium 2gm Pertinent Medications lipitor, d5-0.45ns, colace, iron, zofran, miralax, vit b complex w/ vit c Pertinent Labs 06/18 BUN 63, cr 2.6, alb 3.6 Nutritional Hx/Data Height 1.6 m Height (Calculated Centimeters) 160.0 Current Weight (lbs) 72.121 kg Weight (Calculated Kilograms) 72.1 Weight (Calculated Grams) 13048.2 [place] Body Weight 115 Body Mass Index (BMI) 28.1 Weight Status Overweight GI Symptoms GI Symptoms None Last BM not indicated Difficult in: None Food Allergies No Skin Integrity/Comment: intact Current %PO Good (75-100%) Estimated Nutritional Goals BEE in Kcals: Using Current wt Calories/Kcals/Kg 25-30 Kcals Calculated 6992-9368 Protein: Using Current wt Protein g/k.7-0.8 Protein Calculated 50-57 Fluid: ml 3262-6807 (1ml/kcal) Nutritional Problem 1. Problem Problem altered nutrition related labs Etiology renal dysfunction Signs/Symptoms: BUN 63, Cr 2.6 Malnutrition Alert Is there a minimum of two criteria No selected? Query Text:Check all the applicable criteria. A minimum of two criteria are recommended for diagnosis of either severe or non-severe malnutrition. Malnutrition Related to Morbid Obesity Malnutrition related to morbid obesity No Intervention/Recommendation Comments 1. Recommend adding Renal 50g diet. RN Marc notified, will speak to MD. Continue with low sodium 2gm diet as ordered. 2. Monitor PO intake, wt, labs and skin integrity 3. F/U as high risk in 2-3 days Expected Outcomes/Goals Expected Outcomes/Goals 1. PO intake to meet at least 75% of nutritional needs. 2. Wt stability, skin to remain intact, labs to approach WNL. Reviewed by Vero Peterson RD
[2018-06-21] MEDS: Atorvastatin Calcium 10 MG TAB PO SCH (20:01)
[2018-06-22] MEDS: HYDROmorphone 1 mg/mL 1mL Syr IVP PRN ×3 (00:27→23:43)
[2018-06-22 06:34] LABS: % BASOPHILS 0.8 % (0.0-2.0); % EOSINOPHILS 5.5 % (0.0-5.0); % MONOCYTES 8.6 % (2.0-10.0); % NEUTROPHILS 72.1 % (40.0-80.0); BASOPHILE ABSOLUTE 0.1 Th/cumm (0-0.2); EOSINOPHILE ABSOLUTE 0.6 Th/cmm (0.1-0.4); HEMATOCRIT 28.1 % (41.0-60); HEMOGLOBIN 9.2 gm/dL (12-16); LYMPHOCYTE ABSOLUTE 1.3 Th/cmm (1.5-3.0); MEAN CELL VOLUME 84.8 fl (81-100); MEAN CORPUSCULAR HEMOGLOBIN 27.7 pg (27.0-31.0); MEAN CORPUSCULAR HGB CONC 32.7 pg (28.0-36.0); MEAN PLATELET VOLUME 7.8 fl; MONOCYTE ABSOLUTE 0.9 Th/cmm (0.3-1.0); NEUTROPHILE ABSOLUTE 7.2 Th/cmm (1.8-8.0); PLATELET COUNT 186 Th/cmm (150-400); RED BLOOD COUNT 3.31 Mil/cmm (3.80-5.20); RED CELL DISTRIBUTION WIDTH 13.6 % (11.5-20.0); WHITE BLOOD COUNT 10.1 Th/cmm (4.8-10.8)
[2018-06-22] MEDS: POLYETHYLENE GLYCOL 3350 17 GM PACK PO SCH (09:44)
[2018-06-22] MEDS: Ferrous Sulfate 325 MG TAB PO SCH (09:45)
[2018-06-22] MEDS: Vitamin B Complex w/Vitamin C Tab PO SCH (09:45)
--- NOTE | 2018-06-22 13:44 | General Progress Note ---
Subjective - Review of Systems Service Date: 06/22/18 Subjective: Patient has no complaint of chest pain shortness of breath patient is deaf No complaining of shortness of breath Patient is agitated Objective - Results Result Diagrams: 06/22/18 06:10 06/20/18 05:55 Recent Labs: Laboratory Last Values WBC 10.1 Th/cmm (4.8-10.8) 06/22/18 06:10 RBC 3.31 Mil/cmm (3.80-5.20) L 06/22/18 06:10 Hgb 9.2 gm/dL (12-16) L 06/22/18 06:10 Hct 28.1 % (41.0-60) L 06/22/18 06:10 MCV 84.8 fl (81-100) 06/22/18 06:10 MCH 27.7 pg (27.0-31.0) 06/22/18 06:10 MCHC Differential 32.7 pg (28.0-36.0) 06/22/18 06:10 RDW 13.6 % (11.5-20.0) 06/22/18 06:10 Plt Count 186 Th/cmm (150-400) 06/22/18 06:10 MPV 7.8 fl 06/22/18 06:10 Add Manual Diff YES 06/20/18 05:55 Neutrophils % 72.1 % (40.0-80.0) 06/22/18 06:10 Lymphocytes % 13.0 % (20.0-50.0) L 06/22/18 06:10 Monocytes % 8.6 % (2.0-10.0) 06/22/18 06:10 Eosinophils % 5.5 % (0.0-5.0) H 06/22/18 06:10 Basophils % 0.8 % (0.0-2.0) 06/22/18 06:10 Neutrophils (Manual) 45 % (40-80) 06/20/18 05:55 Lymphocytes 27 % (20-50) 06/20/18 05:55 Monocytes 19 % (2-10) H 06/20/18 05:55 Eosinophils 9 % (0-5) H 06/20/18 05:55 Platelet Estimate ADEQUATE (NORMAL) 06/20/18 05:55 Eos Smear Source URINE 06/19/18 18:10 Eos Smear Total Cells NONE SEEN (NONE SEEN) 06/19/18 18:10 PT 11.0 SECONDS (9.5-11.5) 06/18/18 23:35 INR 1.06 (0.5-1.4) 06/18/18 23:35 PTT (Actin FS) 27.2 SECONDS (26.0-38.0) 06/18/18 23:35 Sodium 142 mEq/L (136-145) 06/20/18 05:55 Potassium 4.3 mEq/L (3.5-5.1) 06/20/18 05:55 Chloride 109 mEq/L (98-107) H 06/20/18 05:55 Carbon Dioxide 25.0 mEq/L (21.0-31.0) 06/20/18 05:55 Anion Gap 12.3 (7.0-16.0) 06/20/18 05:55 BUN 63 mg/dL (7-25) H 06/20/18 05:55 Creatinine 2.6 mg/dL (0.6-1.2) H 06/20/18 05:55 Est GFR ( Amer) TNP 06/20/18 05:55 Est GFR (Non-Af Amer) TNP 06/20/18 05:55 BUN/Creatinine Ratio 24.2 06/20/18 05:55 Glucose 89 mg/dL (70-105) 06/20/18 05:55 Uric Acid 8.1 mg/dL (2.3-6.6) H 06/19/18 15:30 Calcium 8.8 mg/dL (8.6-10.3) 06/20/18 05:55 Phosphorus 4.2 mg/dL (2.5-5.0) 06/20/18 05:55 Magnesium 2.3 mg/dL (1.9-2.7) 06/20/18 05:55 Total Bilirubin 0.4 mg/dL (0.3-1.0) 06/19/18 15:30 AST 15 U/L (13-39) 06/19/18 15:30 ALT 11 U/L (7-52) 06/19/18 15:30 Alkaline Phosphatase 73 U/L (34-104) 06/19/18 15:30 Troponin I 0.02 ng/mL (0.01-0.05) 06/18/18 23:35 B-Natriuretic Peptide 376.0 pg/mL (5.0-100.0) H 06/22/18 06:10 Total Protein 6.4 gm/dL (6.0-8.3) 06/19/18 15:30 Albumin 3.3 gm/dL (3.7-5.3) L 06/19/18 15:30 Globulin 3.1 gm/dL 06/19/18 15:30 Albumin/Globulin Ratio 1.1 (1.0-1.8) 06/19/18 15:30 Triglycerides 112 mg/dL (<150) 06/19/18 15:30 Cholesterol 189 mg/dL (<200) 06/19/18 15:30 LDL Cholesterol Direct 132 mg/dL (75-193) 06/19/18 15:30 HDL Cholesterol 45 mg/dL (23-92) 06/19/18 15:30 TSH 2.31 uIU/ml (0.34-5.60) 06/19/18 15:30 Urine Source MIDSTREAM 06/19/18 00:15 Urine Color YELLOW 06/19/18 00:15 Urine Clarity CLEAR (CLEAR) 06/19/18 00:15 Urine pH 6.0 (4.6 - 8.0) 06/19/18 00:15 Ur Specific [place] 1.015 (1.005-1.030) 06/19/18 00:15 Urine Protein 100 mg/dL (NEGATIVE) H 06/19/18 00:15 Urine Glucose (UA) NEGATIVE mg/dL (NEGATIVE) 06/19/18 00:15 Urine Ketones NEGATIVE mg/dL (NEGATIVE) 06/19/18 00:15 Urine Blood NEGATIVE (NEGATIVE) 06/19/18 00:15 Urine Nitrate NEGATIVE (NEGATIVE) 06/19/18 00:15 Urine Bilirubin NEGATIVE (NEGATIVE) 06/19/18 00:15 Urine Urobilinogen 0.2 E.U./dL (0.2 - 1.0) 06/19/18 00:15 Ur Leukocyte Esterase NEGATIVE (NEGATIVE) 06/19/18 00:15 Urine RBC 0-2 /hpf (0-5) 06/19/18 00:15 Urine WBC 0-2 /hpf (0-5) 06/19/18 00:15 Ur Epithelial Cells FEW /lpf (FEW) 06/19/18 00:15 Urine Bacteria FEW /hpf (NONE SEEN) 06/19/18 00:15 Ur Random Sodium 74 mmol/L 06/19/18 18:10 Urine Creatinine 64.0 mg/dl (28.0-217.0) 06/19/18 18:10 Microalb/Creat Ratio 640.2 mg/g creat (0.0-30.0) H 06/19/18 18:10 - Physical Exam Vitals and I&O: Vital Signs Temp 98.2 F 06/22/18 12:00 Pulse 80 06/22/18 12:00 Resp 18 06/22/18 12:00 BP 152/67 06/22/18 12:00 Pulse Ox 100 06/22/18 12:00 Intake & Output 06/21/18 06/22/18 06/22/18 18:59 06:59 18:59 Intake Total 400 Balance 400 Weight (lbs) 71.668 kg 71.668 kg Intake: Oral 400 Other: # Voids 2 Weight Source Bedscale Bedscale Active Medications: Current Medications Acetaminophen (Tylenol) 650 mg PO Q6HR PRN PRN Reason: Temp above 101F & Mild Pain Stop: 08/18/18 07:10 Acetaminophen/Hydrocodone Bitart ([place] 10 Mg/325 Mg) 1 tab PO Q4HR PRN PRN Reason: Pain (Moderate) Stop: 08/18/18 07:10 Last Admin: 06/21/18 23:25 Dose: 1 tab Albuterol Sulfate (Albuterol 2.5mg/3ml Neb Ud) 2.5 mg HHN TID PRN PRN Reason: Wheezing Albuterol/Ipratropium (Duoneb Neb) 3 ml HHN Q4HR PRN PRN Reason: Shortness of Breath or Wheeze Stop: 08/18/18 07:10 Amlodipine Besylate (Norvasc) 10 mg PO DAILY [facility] Stop: 08/18/18 08:59 Last Admin: 06/22/18 09:44 Dose: 10 mg Aspirin (Ecotrin) 81 mg PO DAILY [facility] Stop: 08/18/18 08:59 Last Admin: 06/22/18 09:44 Dose: 81 mg Atorvastatin Calcium (Lipitor) 20 mg PO HS [facility] Stop: 08/18/18 20:59 Last Admin: 06/21/18 20:01 Dose: 20 mg Bisacodyl (Dulcolax 10 Mg Supp) 10 mg RC DAILY PRN PRN Reason: Constipation Stop: 08/18/18 07:10 Camphor/Menthol (Bengay Greaseless 10%-15%) 1 appl TP QID PRN PRN Reason: Pain (Mild) Stop: 08/18/18 16:59 Carbamide Peroxide (Debrox Otic Drops) 2 drop EACH EAR BID PRN PRN Reason: EARWAX Stop: 08/18/18 07:10 Carvedilol (Coreg) 25 mg PO Q12HR [facility] Stop: 08/18/18 08:59 Last Admin: 06/22/18 09:45 Dose: 25 mg Diphenhydramine HCl (Benadryl) 25 mg PO Q6HR PRN PRN Reason: Itching Stop: 08/18/18 07:10 Last Admin: 06/19/18 09:15 Dose: 25 mg Docusate Sodium (Colace) 100 mg PO BID [facility] Stop: 08/18/18 08:59 Last Admin: 06/22/18 09:44 Dose: 100 mg Epoetin Cristian (Epogen) 10,000 units SUBQ MoWeFr [facility] Stop: 08/20/18 13:47 Last Admin: 06/21/18 17:09 Dose: 10,000 units Ferrous Sulfate (Iron) 325 mg PO DAILY [facility] Stop: 08/18/18 08:59 Last Admin: 06/22/18 09:45 Dose: 325 mg Gabapentin (Neurontin) 600 mg PO TID [facility] Stop: 08/18/18 08:59 Last Admin: 06/22/18 09:45 Dose: Not Given Guaifenesin (Robitussin) 200 mg PO Q4HR PRN PRN Reason: Cough Stop: 08/18/18 07:10 Last Admin: 06/21/18 07:54 Dose: 200 mg Hydromorphone HCl (Dilaudid) 1 mg IVP Q4HR PRN PRN Reason: Pain (Severe) Stop: 08/18/18 07:10 Last Admin: 06/22/18 00:27 Dose: 1 mg Magnesium Hydroxide (Milk Of Magnesia) 30 ml PO HS PRN PRN Reason: Constipation Stop: 08/18/18 07:10 Miscellaneous (Clinical Monitoring) 1 ea MC DAILY PRN PRN Reason: RENAL DOSING Stop: 08/18/18 16:50 Ondansetron HCl (Zofran) 4 mg IVP Q6H PRN PRN Reason: Nausea / Vomiting Stop: 08/21/18 05:20 Last Admin: 06/22/18 08:25 Dose: 4 mg Polyethylene Glycol (Miralax) 17 gm PO DAILY [facility] Stop: 08/18/18 08:59 Last Admin: 06/22/18 09:44 Dose: 17 gm Vitamin B Complex/Vit C/Folic Acid (Vitamin B Complex W/Vitamin C) 1 tab PO DAILY [facility] Stop: 08/18/18 08:59 Last Admin: 06/22/18 09:45 Dose: 1 tab General: Alert, No acute distress HEENT: Atraumatic, PERRLA, Mucous membr. moist/pink Neck: Supple, +2 carotid pulse wo bruit (flat) Cardiovascular: Regular rate, Normal S1, Normal S2 Lungs: Other (few rhonchi) Abdomen: Bowel sounds, Soft, Obese Extremities: no Edema Neurological: Normal speech, Normal tone, Sensation intact, Cranial nerves 3-12 NL, Reflexes 2+ Skin: no Rash Psych/Mental Status: Mood NL Assessment/Plan - Assessment Assessment: Congestive heart failure systolic dysfunction acute Hypertension Hyperlipidemia CKD stage V Deafness Osteoporosis Iron deficiency anemia COPD Echocardiogram ejection fraction 38% left atrial enlargement and right atrial enlargement mild mitral regurgitation and mild tricuspid regurgitation mild pulmonary hypertension right ventricular systolic pressure 46 mmHg - Plan Plan: Continue present management as renal evaluation Echocardiogram ejection fraction 38% mild mitral regurgitation mild tricuspid regurgitation left atrial enlargement and right atrial enlargement cardiomyopathy BNP slightly elevated Nutritional Asmnt/Malnutr-PDOC - Dietary Evaluation Malnutrition Findings (Please click <Entered> for more info): Nutritional Asmnt/Malnutrition Start: 06/19/18 15: 27 Text: Status: Complete Freq: Protocol: Document 06/19/18 15:27 [email or web address] (Rec: 06/19/18 15:41 [email or web address] [email or web address]) Nutritional Asmnt/Malnutrition Patient General Information Nutritional Screening High Risk Diagnosis acute chronic kidney disease, CHF Pertinent Medical Hx/Surgical Hx CHF, osteonecrosis, polyneuropathy, cardiomegaly, chronic anemia, osteoarthritis , hyperlipidemia, osteoporosis , hearing loss, renal insufficiency, asthma Subjective Information Pt was seen sleeping at time of visit, did not wake to greeting. PO intake is 100% per RN. Renal ultrasound done today, findings reflect a degree of chronic parenchymal disease and bilateral renal cysts, per MD report. Current Diet Order/ Nutrition Support low sodium 2gm Pertinent Medications lipitor, d5-0.45ns, colace, iron, zofran, miralax, vit b complex w/ vit c Pertinent Labs 06/18 BUN 63, cr 2.6, alb 3.6 Nutritional Hx/Data Height 1.6 m Height (Calculated Centimeters) 160.0 Current Weight (lbs) 72.121 kg Weight (Calculated Kilograms) 72.1 Weight (Calculated Grams) 84075.2 [place] Body Weight 115 Body Mass Index (BMI) 28.1 Weight Status Overweight GI Symptoms GI Symptoms None Last BM not indicated Difficult in: None Food Allergies No Skin Integrity/Comment: intact Current %PO Good (75-100%) Estimated Nutritional Goals BEE in Kcals: Using Current wt Calories/Kcals/Kg 25-30 Kcals Calculated 3044-3108 Protein: Using Current wt Protein g/k.7-0.8 Protein Calculated 50-57 Fluid: ml 8890-9553 (1ml/kcal) Nutritional Problem 1. Problem Problem altered nutrition related labs Etiology renal dysfunction Signs/Symptoms: BUN 63, Cr 2.6 Malnutrition Alert Is there a minimum of two criteria No selected? Query Text:Check all the applicable criteria. A minimum of two criteria are recommended for diagnosis of either severe or non-severe malnutrition. Malnutrition Related to Morbid Obesity Malnutrition related to morbid obesity No Intervention/Recommendation Comments 1. Recommend adding Renal 50g diet. TAO Tran notified, will speak to MD. Continue with low sodium 2gm diet as ordered. 2. Monitor PO intake, wt, labs and skin integrity 3. F/U as high risk in 2-3 days Expected Outcomes/Goals Expected Outcomes/Goals 1. PO intake to meet at least 75% of nutritional needs. 2. Wt stability, skin to remain intact, labs to approach WNL. Reviewed by Vero Peterson RD
--- NOTE | 2018-06-22 18:09 | General Progress Note ---
Subjective - Review of Systems Service Date: 06/22/18 Subjective: awake, incoherent, impulsive, aggressive behaviour Objective - Results Result Diagrams: 06/22/18 06:10 06/20/18 05:55 Recent Labs: Laboratory Last Values WBC 10.1 Th/cmm (4.8-10.8) 06/22/18 06:10 RBC 3.31 Mil/cmm (3.80-5.20) L 06/22/18 06:10 Hgb 9.2 gm/dL (12-16) L 06/22/18 06:10 Hct 28.1 % (41.0-60) L 06/22/18 06:10 MCV 84.8 fl (81-100) 06/22/18 06:10 MCH 27.7 pg (27.0-31.0) 06/22/18 06:10 MCHC Differential 32.7 pg (28.0-36.0) 06/22/18 06:10 RDW 13.6 % (11.5-20.0) 06/22/18 06:10 Plt Count 186 Th/cmm (150-400) 06/22/18 06:10 MPV 7.8 fl 06/22/18 06:10 Add Manual Diff YES 06/20/18 05:55 Neutrophils % 72.1 % (40.0-80.0) 06/22/18 06:10 Lymphocytes % 13.0 % (20.0-50.0) L 06/22/18 06:10 Monocytes % 8.6 % (2.0-10.0) 06/22/18 06:10 Eosinophils % 5.5 % (0.0-5.0) H 06/22/18 06:10 Basophils % 0.8 % (0.0-2.0) 06/22/18 06:10 Neutrophils (Manual) 45 % (40-80) 06/20/18 05:55 Lymphocytes 27 % (20-50) 06/20/18 05:55 Monocytes 19 % (2-10) H 06/20/18 05:55 Eosinophils 9 % (0-5) H 06/20/18 05:55 Platelet Estimate ADEQUATE (NORMAL) 06/20/18 05:55 Eos Smear Source URINE 06/19/18 18:10 Eos Smear Total Cells NONE SEEN (NONE SEEN) 06/19/18 18:10 PT 11.0 SECONDS (9.5-11.5) 06/18/18 23:35 INR 1.06 (0.5-1.4) 06/18/18 23:35 PTT (Actin FS) 27.2 SECONDS (26.0-38.0) 06/18/18 23:35 Sodium 142 mEq/L (136-145) 06/20/18 05:55 Potassium 4.3 mEq/L (3.5-5.1) 06/20/18 05:55 Chloride 109 mEq/L (98-107) H 06/20/18 05:55 Carbon Dioxide 25.0 mEq/L (21.0-31.0) 06/20/18 05:55 Anion Gap 12.3 (7.0-16.0) 06/20/18 05:55 BUN 63 mg/dL (7-25) H 06/20/18 05:55 Creatinine 2.6 mg/dL (0.6-1.2) H 06/20/18 05:55 Est GFR ( Amer) TNP 06/20/18 05:55 Est GFR (Non-Af Amer) TNP 06/20/18 05:55 BUN/Creatinine Ratio 24.2 06/20/18 05:55 Glucose 89 mg/dL (70-105) 06/20/18 05:55 Uric Acid 8.1 mg/dL (2.3-6.6) H 06/19/18 15:30 Calcium 8.8 mg/dL (8.6-10.3) 06/20/18 05:55 Phosphorus 4.2 mg/dL (2.5-5.0) 06/20/18 05:55 Magnesium 2.3 mg/dL (1.9-2.7) 06/20/18 05:55 Total Bilirubin 0.4 mg/dL (0.3-1.0) 06/19/18 15:30 AST 15 U/L (13-39) 06/19/18 15:30 ALT 11 U/L (7-52) 06/19/18 15:30 Alkaline Phosphatase 73 U/L (34-104) 06/19/18 15:30 Troponin I 0.02 ng/mL (0.01-0.05) 06/18/18 23:35 B-Natriuretic Peptide 376.0 pg/mL (5.0-100.0) H 06/22/18 06:10 Total Protein 6.4 gm/dL (6.0-8.3) 06/19/18 15:30 Albumin 3.3 gm/dL (3.7-5.3) L 06/19/18 15:30 Globulin 3.1 gm/dL 06/19/18 15:30 Albumin/Globulin Ratio 1.1 (1.0-1.8) 06/19/18 15:30 Triglycerides 112 mg/dL (<150) 06/19/18 15:30 Cholesterol 189 mg/dL (<200) 06/19/18 15:30 LDL Cholesterol Direct 132 mg/dL (75-193) 06/19/18 15:30 HDL Cholesterol 45 mg/dL (23-92) 06/19/18 15:30 TSH 2.31 uIU/ml (0.34-5.60) 06/19/18 15:30 Urine Source MIDSTREAM 06/19/18 00:15 Urine Color YELLOW 06/19/18 00:15 Urine Clarity CLEAR (CLEAR) 06/19/18 00:15 Urine pH 6.0 (4.6 - 8.0) 06/19/18 00:15 Ur Specific [place] 1.015 (1.005-1.030) 06/19/18 00:15 Urine Protein 100 mg/dL (NEGATIVE) H 06/19/18 00:15 Urine Glucose (UA) NEGATIVE mg/dL (NEGATIVE) 06/19/18 00:15 Urine Ketones NEGATIVE mg/dL (NEGATIVE) 06/19/18 00:15 Urine Blood NEGATIVE (NEGATIVE) 06/19/18 00:15 Urine Nitrate NEGATIVE (NEGATIVE) 06/19/18 00:15 Urine Bilirubin NEGATIVE (NEGATIVE) 06/19/18 00:15 Urine Urobilinogen 0.2 E.U./dL (0.2 - 1.0) 06/19/18 00:15 Ur Leukocyte Esterase NEGATIVE (NEGATIVE) 06/19/18 00:15 Urine RBC 0-2 /hpf (0-5) 06/19/18 00:15 Urine WBC 0-2 /hpf (0-5) 06/19/18 00:15 Ur Epithelial Cells FEW /lpf (FEW) 06/19/18 00:15 Urine Bacteria FEW /hpf (NONE SEEN) 06/19/18 00:15 Ur Random Sodium 74 mmol/L 06/19/18 18:10 Urine Creatinine 64.0 mg/dl (28.0-217.0) 06/19/18 18:10 Microalb/Creat Ratio 640.2 mg/g creat (0.0-30.0) H 06/19/18 18:10 - Physical Exam Vitals and I&O: Vital Signs Temp 97.1 F 06/22/18 15:50 Pulse 75 06/22/18 15:50 Resp 18 06/22/18 16:00 BP 154/62 06/22/18 15:50 Pulse Ox 92 06/22/18 15:50 Intake & Output 06/21/18 06/22/18 06/22/18 18:59 06:59 18:59 Intake Total 400 500 Balance 400 500 Weight (lbs) 71.668 kg 71.668 kg 71.668 kg Intake: Oral 400 500 Other: # Voids 2 2 Weight Source Bedscale Bedscale Bedscale Active Medications: Current Medications Acetaminophen (Tylenol) 650 mg PO Q6HR PRN PRN Reason: Temp above 101F & Mild Pain Stop: 08/18/18 07:10 Acetaminophen/Hydrocodone Bitart ([place] 10 Mg/325 Mg) 1 tab PO Q4HR PRN PRN Reason: Pain (Moderate) Stop: 08/18/18 07:10 Last Admin: 06/21/18 23:25 Dose: 1 tab Albuterol Sulfate (Albuterol 2.5mg/3ml Neb Ud) 2.5 mg HHN TID PRN PRN Reason: Wheezing Albuterol/Ipratropium (Duoneb Neb) 3 ml HHN Q4HR PRN PRN Reason: Shortness of Breath or Wheeze Stop: 08/18/18 07:10 Amlodipine Besylate (Norvasc) 10 mg PO DAILY [facility] Stop: 08/18/18 08:59 Last Admin: 06/22/18 09:44 Dose: 10 mg Aspirin (Ecotrin) 81 mg PO DAILY [facility] Stop: 08/18/18 08:59 Last Admin: 06/22/18 09:44 Dose: 81 mg Atorvastatin Calcium (Lipitor) 20 mg PO [facility] Stop: 08/18/18 20:59 Last Admin: 06/21/18 20:01 Dose: 20 mg Bisacodyl (Dulcolax 10 Mg Supp) 10 mg RC DAILY PRN PRN Reason: Constipation Stop: 08/18/18 07:10 Camphor/Menthol ([place] Greaseless 10%-15%) 1 appl TP QID PRN PRN Reason: Pain (Mild) Stop: 08/18/18 16:59 Carbamide Peroxide (Debrox Otic Drops) 2 drop EACH EAR BID PRN PRN Reason: EARWAX Stop: 08/18/18 07:10 Carvedilol (Coreg) 25 mg PO Q12HR [facility] Stop: 08/18/18 08:59 Last Admin: 06/22/18 09:45 Dose: 25 mg Diphenhydramine HCl (Benadryl) 25 mg PO Q6HR PRN PRN Reason: Itching Stop: 08/18/18 07:10 Last Admin: 06/19/18 09:15 Dose: 25 mg Docusate Sodium (Colace) 100 mg PO BID [facility] Stop: 08/18/18 08:59 Last Admin: 06/22/18 09:44 Dose: 100 mg Epoetin Cristian (Epogen) 10,000 units SUBQ MoWeFr [facility] Stop: 08/20/18 13:47 Last Admin: 06/21/18 17:09 Dose: 10,000 units Ferrous Sulfate (Iron) 325 mg PO DAILY [facility] Stop: 08/18/18 08:59 Last Admin: 06/22/18 09:45 Dose: 325 mg Gabapentin (Neurontin) 600 mg PO TID [facility] Stop: 08/18/18 08:59 Last Admin: 06/22/18 14:35 Dose: Not Given Guaifenesin (Robitussin) 200 mg PO Q4HR PRN PRN Reason: Cough Stop: 08/18/18 07:10 Last Admin: 06/21/18 07:54 Dose: 200 mg Hydromorphone HCl (Dilaudid) 1 mg IVP Q4HR PRN PRN Reason: Pain (Severe) Stop: 08/18/18 07:10 Last Admin: 06/22/18 00:27 Dose: 1 mg Lorazepam (Ativan) 0.5 mg IVP Q6HR PRN; Protocol PRN Reason: Agitation Stop: 08/21/18 17:59 Magnesium Hydroxide (Milk Of Magnesia) 30 ml PO HS PRN PRN Reason: Constipation Stop: 08/18/18 07:10 Miscellaneous (Clinical Monitoring) 1 ea MC DAILY PRN PRN Reason: RENAL DOSING Stop: 08/18/18 16:50 Ondansetron HCl (Zofran) 4 mg IVP Q6H PRN PRN Reason: Nausea / Vomiting Stop: 08/21/18 05:20 Last Admin: 06/22/18 08:25 Dose: 4 mg Polyethylene Glycol (Miralax) 17 gm PO DAILY [facility] Stop: 08/18/18 08:59 Last Admin: 06/22/18 09:44 Dose: 17 gm Vitamin B Complex/Vit C/Folic Acid (Vitamin B Complex W/Vitamin C) 1 tab PO DAILY [facility] Stop: 08/18/18 08:59 Last Admin: 06/22/18 09:45 Dose: 1 tab General: Alert, No acute distress, Moderate distress, Other (uncooperative), no Cooperative HEENT: Atraumatic, PERRLA, Mucous membr. moist/pink Neck: Supple, +2 carotid pulse wo bruit (flat) Cardiovascular: Regular rate, Normal S1, Normal S2 Lungs: Other (few rhonchi) Abdomen: Bowel sounds, Soft, Obese Extremities: no Edema Neurological: Normal tone, Sensation intact Skin: no Rash Psych/Mental Status: Other (impulsive, uncontrolled) Assessment/Plan - Assessment Assessment: CKD Deaf DJD both Hips Ess Htn Dyslipidemia Osteoporosis Polyneuropathy COPD acute pysch decompensation - Plan Plan: Lab - Result Diagrams 06/20/18 05:55 06/20/18 05:55 Current Medications Acetaminophen (Tylenol) 650 mg PO Q6HR PRN PRN Reason: Temp above 101F & Mild Pain Stop: 08/18/18 07:10 Acetaminophen/Hydrocodone Bitart ([place] 10 Mg/325 Mg) 1 tab PO Q4HR PRN PRN Reason: Pain (Moderate) Stop: 08/18/18 07:10 Albuterol Sulfate (Albuterol 2.5mg/3ml Neb Ud) 2.5 mg HHN TID PRN PRN Reason: Wheezing Albuterol/Ipratropium (Duoneb Neb) 3 ml HHN Q4HR PRN PRN Reason: Shortness of Breath or Wheeze Stop: 08/18/18 07:10 Amlodipine Besylate (Norvasc) 10 mg PO DAILY [facility] Stop: 08/18/18 08:59 Last Admin: 06/20/18 09:20 Dose: 10 mg Aspirin (Ecotrin) 81 mg PO DAILY [facility] Stop: 08/18/18 08:59 Last Admin: 06/20/18 09:15 Dose: 81 mg Atorvastatin Calcium (Lipitor) 20 mg PO HS [facility] Stop: 08/18/18 20:59 Last Admin: 06/19/18 21:10 Dose: 20 mg Bisacodyl (Dulcolax 10 Mg Supp) 10 mg RC DAILY PRN PRN Reason: Constipation Stop: 08/18/18 07:10 Camphor/Menthol (Bengay Greaseless 10%-15%) 1 appl TP QID PRN PRN Reason: Pain (Mild) Stop: 08/18/18 16:59 Carbamide Peroxide (Debrox Otic Drops) 2 drop EACH EAR BID PRN PRN Reason: EARWAX Stop: 08/18/18 07:10 Carvedilol (Coreg) 25 mg PO Q12HR [facility] Stop: 08/18/18 08:59 Last Admin: 06/20/18 09:18 Dose: 25 mg Diphenhydramine HCl (Benadryl) 25 mg PO Q6HR PRN PRN Reason: Itching Stop: 08/18/18 07:10 Last Admin: 06/19/18 09:15 Dose: 25 mg Docusate Sodium (Colace) 100 mg PO BID [facility] Stop: 08/18/18 08:59 Last Admin: 06/20/18 09:14 Dose: 100 mg Ferrous Sulfate (Iron) 325 mg PO DAILY [facility] Stop: 08/18/18 08:59 Last Admin: 06/20/18 09:13 Dose: 325 mg Gabapentin (Neurontin) 600 mg PO TID [facility] Stop: 08/18/18 08:59 Last Admin: 06/20/18 09:14 Dose: 600 mg Guaifenesin (Robitussin) 200 mg PO Q4HR PRN PRN Reason: Cough Stop: 08/18/18 07:10 Hydromorphone HCl (Dilaudid) 1 mg IVP Q4HR PRN PRN Reason: Pain (Severe) Stop: 08/18/18 07:10 Last Admin: 06/20/18 09:10 Dose: 1 mg Magnesium Hydroxide (Milk Of Magnesia) 30 ml PO HS PRN PRN Reason: Constipation Stop: 08/18/18 07:10 Miscellaneous (Clinical Monitoring) 1 ea MC DAILY PRN PRN Reason: RENAL DOSING Stop: 08/18/18 16:50 Ondansetron HCl (Zofran Odt) 8 mg PO Q8HR PRN PRN Reason: Nausea / Vomiting Polyethylene Glycol (Miralax) 17 gm PO DAILY [facility] Stop: 08/18/18 08:59 Last Admin: 06/20/18 10:36 Dose: Not Given Vitamin B Complex/Vit C/Folic Acid (Vitamin B Complex W/Vitamin C) 1 tab PO DAILY KRISTIN Stop: 08/18/18 08:59 Last Admin: 06/20/18 09:15 Dose: 1 tab Lab - Result Diagrams 06/20/18 05:55 06/20/18 05:55 Kidney fnc stable w/ Cr of 2.6 possibly her baseline Renal US revealed b/l renal cysts start Epo for anemia encourage po fluid intake consider psych eval for impulsive, uncontrolled behaviour Nutritional Asmnt/Malnutr-PDOC - Dietary Evaluation Malnutrition Findings (Please click <Entered> for more info): Nutritional Asmnt/Malnutrition Start: 06/19/18 15: 27 Text: Status: Complete Freq: Protocol: Document 06/19/18 15:27 [email or web address] (Rec: 06/19/18 15:41 [email or web address] [email or web address]) Nutritional Asmnt/Malnutrition Patient General Information Nutritional Screening High Risk Diagnosis acute chronic kidney disease, CHF Pertinent Medical Hx/Surgical Hx CHF, osteonecrosis, polyneuropathy, cardiomegaly, chronic anemia, osteoarthritis , hyperlipidemia, osteoporosis , hearing loss, renal insufficiency, asthma Subjective Information Pt was seen sleeping at time of visit, did not wake to greeting. PO intake is 100% per RN. Renal ultrasound done today, findings reflect a degree of chronic parenchymal disease and bilateral renal cysts, per MD report. Current Diet Order/ Nutrition Support low sodium 2gm Pertinent Medications lipitor, d5-0.45ns, colace, iron, zofran, miralax, vit b complex w/ vit c Pertinent Labs 06/18 BUN 63, cr 2.6, alb 3.6 Nutritional Hx/Data Height 1.6 m Height (Calculated Centimeters) 160.0 Current Weight (lbs) 72.121 kg Weight (Calculated Kilograms) 72.1 Weight (Calculated Grams) 09245.2 [place] Body Weight 115 Body Mass Index (BMI) 28.1 Weight Status Overweight GI Symptoms GI Symptoms None Last BM not indicated Difficult in: None Food Allergies No Skin Integrity/Comment: intact Current %PO Good (75-100%) Estimated Nutritional Goals BEE in Kcals: Using Current wt Calories/Kcals/Kg 25-30 Kcals Calculated 9211-3435 Protein: Using Current wt Protein g/k.7-0.8 Protein Calculated 50-57 Fluid: ml 4228-9258 (1ml/kcal) Nutritional Problem 1. Problem Problem altered nutrition related labs Etiology renal dysfunction Signs/Symptoms: BUN 63, Cr 2.6 Malnutrition Alert Is there a minimum of two criteria No selected? Query Text:Check all the applicable criteria. A minimum of two criteria are recommended for diagnosis of either severe or non-severe malnutrition. Malnutrition Related to Morbid Obesity Malnutrition related to morbid obesity No Intervention/Recommendation Comments 1. Recommend adding Renal 50g diet. TAO Tran notified, will speak to MD. Continue with low sodium 2gm diet as ordered. 2. Monitor PO intake, wt, labs and skin integrity 3. F/U as high risk in 2-3 days Expected Outcomes/Goals Expected Outcomes/Goals 1. PO intake to meet at least 75% of nutritional needs. 2. Wt stability, skin to remain intact, labs to approach WNL. Reviewed by Vero Peterson RD
--- NOTE | 2018-06-22 18:42 | Internal Medicine Prog Note ---
Internal Medicine Subjective - Subjective Service Date: 06/22/18 Patient seen and examined:: without staff Patient is:: awake, verbal, interactive, in bed Patient Complaints of:: congestion Per staff patient has:: no adverse event Internal Medicine Objective - Results Result Diagrams: 06/22/18 06:10 06/20/18 05:55 Recent Labs: Laboratory Last Values WBC 10.1 Th/cmm (4.8-10.8) 06/22/18 06:10 RBC 3.31 Mil/cmm (3.80-5.20) L 06/22/18 06:10 Hgb 9.2 gm/dL (12-16) L 06/22/18 06:10 Hct 28.1 % (41.0-60) L 06/22/18 06:10 MCV 84.8 fl (81-100) 06/22/18 06:10 MCH 27.7 pg (27.0-31.0) 06/22/18 06:10 MCHC Differential 32.7 pg (28.0-36.0) 06/22/18 06:10 RDW 13.6 % (11.5-20.0) 06/22/18 06:10 Plt Count 186 Th/cmm (150-400) 06/22/18 06:10 MPV 7.8 fl 06/22/18 06:10 Add Manual Diff YES 06/20/18 05:55 Neutrophils % 72.1 % (40.0-80.0) 06/22/18 06:10 Lymphocytes % 13.0 % (20.0-50.0) L 06/22/18 06:10 Monocytes % 8.6 % (2.0-10.0) 06/22/18 06:10 Eosinophils % 5.5 % (0.0-5.0) H 06/22/18 06:10 Basophils % 0.8 % (0.0-2.0) 06/22/18 06:10 Neutrophils (Manual) 45 % (40-80) 06/20/18 05:55 Lymphocytes 27 % (20-50) 06/20/18 05:55 Monocytes 19 % (2-10) H 06/20/18 05:55 Eosinophils 9 % (0-5) H 06/20/18 05:55 Platelet Estimate ADEQUATE (NORMAL) 06/20/18 05:55 Eos Smear Source URINE 06/19/18 18:10 Eos Smear Total Cells NONE SEEN (NONE SEEN) 06/19/18 18:10 PT 11.0 SECONDS (9.5-11.5) 06/18/18 23:35 INR 1.06 (0.5-1.4) 06/18/18 23:35 PTT (Actin FS) 27.2 SECONDS (26.0-38.0) 06/18/18 23:35 Sodium 142 mEq/L (136-145) 06/20/18 05:55 Potassium 4.3 mEq/L (3.5-5.1) 06/20/18 05:55 Chloride 109 mEq/L (98-107) H 06/20/18 05:55 Carbon Dioxide 25.0 mEq/L (21.0-31.0) 06/20/18 05:55 Anion Gap 12.3 (7.0-16.0) 06/20/18 05:55 BUN 63 mg/dL (7-25) H 06/20/18 05:55 Creatinine 2.6 mg/dL (0.6-1.2) H 06/20/18 05:55 Est GFR ( Amer) TNP 06/20/18 05:55 Est GFR (Non-Af Amer) TNP 06/20/18 05:55 BUN/Creatinine Ratio 24.2 06/20/18 05:55 Glucose 89 mg/dL (70-105) 06/20/18 05:55 Uric Acid 8.1 mg/dL (2.3-6.6) H 06/19/18 15:30 Calcium 8.8 mg/dL (8.6-10.3) 06/20/18 05:55 Phosphorus 4.2 mg/dL (2.5-5.0) 06/20/18 05:55 Magnesium 2.3 mg/dL (1.9-2.7) 06/20/18 05:55 Total Bilirubin 0.4 mg/dL (0.3-1.0) 06/19/18 15:30 AST 15 U/L (13-39) 06/19/18 15:30 ALT 11 U/L (7-52) 06/19/18 15:30 Alkaline Phosphatase 73 U/L (34-104) 06/19/18 15:30 Troponin I 0.02 ng/mL (0.01-0.05) 06/18/18 23:35 B-Natriuretic Peptide 376.0 pg/mL (5.0-100.0) H 06/22/18 06:10 Total Protein 6.4 gm/dL (6.0-8.3) 06/19/18 15:30 Albumin 3.3 gm/dL (3.7-5.3) L 06/19/18 15:30 Globulin 3.1 gm/dL 06/19/18 15:30 Albumin/Globulin Ratio 1.1 (1.0-1.8) 06/19/18 15:30 Triglycerides 112 mg/dL (<150) 06/19/18 15:30 Cholesterol 189 mg/dL (<200) 06/19/18 15:30 LDL Cholesterol Direct 132 mg/dL (75-193) 06/19/18 15:30 HDL Cholesterol 45 mg/dL (23-92) 06/19/18 15:30 TSH 2.31 uIU/ml (0.34-5.60) 06/19/18 15:30 Urine Source MIDSTREAM 06/19/18 00:15 Urine Color YELLOW 06/19/18 00:15 Urine Clarity CLEAR (CLEAR) 06/19/18 00:15 Urine pH 6.0 (4.6 - 8.0) 06/19/18 00:15 Ur Specific [place] 1.015 (1.005-1.030) 06/19/18 00:15 Urine Protein 100 mg/dL (NEGATIVE) H 06/19/18 00:15 Urine Glucose (UA) NEGATIVE mg/dL (NEGATIVE) 06/19/18 00:15 Urine Ketones NEGATIVE mg/dL (NEGATIVE) 06/19/18 00:15 Urine Blood NEGATIVE (NEGATIVE) 06/19/18 00:15 Urine Nitrate NEGATIVE (NEGATIVE) 06/19/18 00:15 Urine Bilirubin NEGATIVE (NEGATIVE) 06/19/18 00:15 Urine Urobilinogen 0.2 E.U./dL (0.2 - 1.0) 06/19/18 00:15 Ur Leukocyte Esterase NEGATIVE (NEGATIVE) 06/19/18 00:15 Urine RBC 0-2 /hpf (0-5) 06/19/18 00:15 Urine WBC 0-2 /hpf (0-5) 06/19/18 00:15 Ur Epithelial Cells FEW /lpf (FEW) 06/19/18 00:15 Urine Bacteria FEW /hpf (NONE SEEN) 06/19/18 00:15 Ur Random Sodium 74 mmol/L 06/19/18 18:10 Urine Creatinine 64.0 mg/dl (28.0-217.0) 06/19/18 18:10 Microalb/Creat Ratio 640.2 mg/g creat (0.0-30.0) H 06/19/18 18:10 - Physical Exam Vitals and I&O: Vital Signs Temp 97.1 F 06/22/18 15:50 Pulse 75 06/22/18 15:50 Resp 18 06/22/18 16:00 BP 154/62 06/22/18 15:50 Pulse Ox 92 06/22/18 15:50 Intake & Output 06/21/18 06/22/18 06/22/18 18:59 06:59 18:59 Intake Total 400 500 Balance 400 500 Weight (lbs) 71.668 kg 71.668 kg 71.668 kg Intake: Oral 400 500 Other: # Voids 2 2 Weight Source Bedscale Bedscale Bedscale Active Medications: Current Medications Acetaminophen (Tylenol) 650 mg PO Q6HR PRN PRN Reason: Temp above 101F & Mild Pain Stop: 08/18/18 07:10 Acetaminophen/Hydrocodone Bitart ([place] 10 Mg/325 Mg) 1 tab PO Q4HR PRN PRN Reason: Pain (Moderate) Stop: 08/18/18 07:10 Last Admin: 06/21/18 23:25 Dose: 1 tab Albuterol Sulfate (Albuterol 2.5mg/3ml Neb Ud) 2.5 mg HHN TID PRN PRN Reason: Wheezing Albuterol/Ipratropium (Duoneb Neb) 3 ml HHN Q4HR PRN PRN Reason: Shortness of Breath or Wheeze Stop: 08/18/18 07:10 Amlodipine Besylate (Norvasc) 10 mg PO DAILY [facility] Stop: 08/18/18 08:59 Last Admin: 06/22/18 09:44 Dose: 10 mg Aspirin (Ecotrin) 81 mg PO DAILY [facility] Stop: 08/18/18 08:59 Last Admin: 06/22/18 09:44 Dose: 81 mg Atorvastatin Calcium (Lipitor) 20 mg PO HS [facility] Stop: 08/18/18 20:59 Last Admin: 06/21/18 20:01 Dose: 20 mg Bisacodyl (Dulcolax 10 Mg Supp) 10 mg RC DAILY PRN PRN Reason: Constipation Stop: 08/18/18 07:10 Camphor/Menthol (Bengay Greaseless 10%-15%) 1 appl TP QID PRN PRN Reason: Pain (Mild) Stop: 08/18/18 16:59 Carbamide Peroxide (Debrox Otic Drops) 2 drop EACH EAR BID PRN PRN Reason: EARWAX Stop: 08/18/18 07:10 Carvedilol (Coreg) 25 mg PO Q12HR [facility] Stop: 08/18/18 08:59 Last Admin: 06/22/18 09:45 Dose: 25 mg Diphenhydramine HCl (Benadryl) 25 mg PO Q6HR PRN PRN Reason: Itching Stop: 08/18/18 07:10 Last Admin: 06/19/18 09:15 Dose: 25 mg Docusate Sodium (Colace) 100 mg PO BID [facility] Stop: 08/18/18 08:59 Last Admin: 06/22/18 18:13 Dose: Not Given Epoetin Cristian (Epogen) 10,000 units SUBQ MoWeFr [facility] Stop: 08/20/18 13:47 Last Admin: 06/21/18 17:09 Dose: 10,000 units Ferrous Sulfate (Iron) 325 mg PO DAILY [facility] Stop: 08/18/18 08:59 Last Admin: 06/22/18 09:45 Dose: 325 mg Gabapentin (Neurontin) 600 mg PO TID [facility] Stop: 08/18/18 08:59 Last Admin: 06/22/18 14:35 Dose: Not Given Guaifenesin (Robitussin) 200 mg PO Q4HR PRN PRN Reason: Cough Stop: 08/18/18 07:10 Last Admin: 06/21/18 07:54 Dose: 200 mg Hydromorphone HCl (Dilaudid) 1 mg IVP Q4HR PRN PRN Reason: Pain (Severe) Stop: 08/18/18 07:10 Last Admin: 06/22/18 00:27 Dose: 1 mg Lorazepam (Ativan) 0.5 mg IVP Q6HR PRN; Protocol PRN Reason: Agitation Stop: 08/21/18 17:59 Magnesium Hydroxide (Milk Of Magnesia) 30 ml PO HS PRN PRN Reason: Constipation Stop: 08/18/18 07:10 Miscellaneous (Clinical Monitoring) 1 ea MC DAILY PRN PRN Reason: RENAL DOSING Stop: 08/18/18 16:50 Ondansetron HCl (Zofran) 4 mg IVP Q6H PRN PRN Reason: Nausea / Vomiting Stop: 08/21/18 05:20 Last Admin: 06/22/18 08:25 Dose: 4 mg Polyethylene Glycol (Miralax) 17 gm PO DAILY [facility] Stop: 08/18/18 08:59 Last Admin: 06/22/18 09:44 Dose: 17 gm Vitamin B Complex/Vit C/Folic Acid (Vitamin B Complex W/Vitamin C) 1 tab PO DAILY [facility] Stop: 08/18/18 08:59 Last Admin: 06/22/18 09:45 Dose: 1 tab General: weak, congested, disheveled HEENT: NC/AT, PERRLA, EOMI, anicteric sclerae Neck: Supple, +2 carotid pulse wo bruit, + JVD Lungs: rales, ronchi Cardiovascular: RRR, Normal S1, Normal S2 Abdomen: soft, non-tender, tender, thin Extremities: clear, edema, pedal pulses Neurological: no change, lethargic, muscle weakness Internal Medicine Assmt/Plan - Assessment Assessment: CHF: EF 35%, continue meds; adjust accordingly. HTN: adjusting meds as needed. COPD: RT protocol. ARF/chronic kidney disease: work up in progress; avoid nephrotoxic meds. Chronic pain syndrome. First degree AV block? DVT prophylaxis. Nutritional Asmnt/Malnutr-PDOC - Dietary Evaluation Malnutrition Findings (Please click <Entered> for more info): Nutritional Asmnt/Malnutrition Start: 06/19/18 15: 27 Text: Status: Complete Freq: Protocol: Document 06/19/18 15:27 [email or web address] (Rec: 06/19/18 15:41 [email or web address]) Nutritional Asmnt/Malnutrition Patient General Information Nutritional Screening High Risk Diagnosis acute chronic kidney disease, CHF Pertinent Medical Hx/Surgical Hx CHF, osteonecrosis, polyneuropathy, cardiomegaly, chronic anemia, osteoarthritis , hyperlipidemia, osteoporosis , hearing loss, renal insufficiency, asthma Subjective Information Pt was seen sleeping at time of visit, did not wake to greeting. PO intake is 100% per RN. Renal ultrasound done today, findings reflect a degree of chronic parenchymal disease and bilateral renal cysts, per MD report. Current Diet Order/ Nutrition Support low sodium 2gm Pertinent Medications lipitor, d5-0.45ns, colace, iron, zofran, miralax, vit b complex w/ vit c Pertinent Labs 06/18 BUN 63, cr 2.6, alb 3.6 Nutritional Hx/Data Height 1.6 m Height (Calculated Centimeters) 160.0 Current Weight (lbs) 72.121 kg Weight (Calculated Kilograms) 72.1 Weight (Calculated Grams) 09873.2 [place] Body Weight 115 Body Mass Index (BMI) 28.1 Weight Status Overweight GI Symptoms GI Symptoms None Last BM not indicated Difficult in: None Food Allergies No Skin Integrity/Comment: intact Current %PO Good (75-100%) Estimated Nutritional Goals BEE in Kcals: Using Current wt Calories/Kcals/Kg 25-30 Kcals Calculated 3257-9583 Protein: Using Current wt Protein g/k.7-0.8 Protein Calculated 50-57 Fluid: ml 4908-5138 (1ml/kcal) Nutritional Problem 1. Problem Problem altered nutrition related labs Etiology renal dysfunction Signs/Symptoms: BUN 63, Cr 2.6 Malnutrition Alert Is there a minimum of two criteria No selected? Query Text:Check all the applicable criteria. A minimum of two criteria are recommended for diagnosis of either severe or non-severe malnutrition. Malnutrition Related to Morbid Obesity Malnutrition related to morbid obesity No Intervention/Recommendation Comments 1. Recommend adding Renal 50g diet. RN Marc notified, will speak to MD. Continue with low sodium 2gm diet as ordered. 2. Monitor PO intake, wt, labs and skin integrity 3. F/U as high risk in 2-3 days Expected Outcomes/Goals Expected Outcomes/Goals 1. PO intake to meet at least 75% of nutritional needs. 2. Wt stability, skin to remain intact, labs to approach WNL. Reviewed by Vero Peterson RD
[2018-06-22] MEDS: Atorvastatin Calcium 10 MG TAB PO SCH (20:03)
[2018-06-22] MEDS: guaiFENesin 200 MG/10 ML UDC PO PRN (23:43)
[2018-06-23] MEDS: HYDROmorphone 1 mg/mL 1mL Syr IVP PRN ×2 (04:23→23:54)
[2018-06-23 06:37] LABS: % BASOPHILS 0.7 % (0.0-2.0); % EOSINOPHILS 6.2 % (0.0-5.0); % LYMPHOCYTES 21.4 % (20.0-50.0); % MONOCYTES 13.1 % (2.0-10.0); % NEUTROPHILS 58.6 % (40.0-80.0); BASOPHILE ABSOLUTE 0.1 Th/cumm (0-0.2); EOSINOPHILE ABSOLUTE 0.5 Th/cmm (0.1-0.4); HEMATOCRIT 28.4 % (41.0-60); HEMOGLOBIN 9.3 gm/dL (12-16); LYMPHOCYTE ABSOLUTE 1.9 Th/cmm (1.5-3.0); MEAN CELL VOLUME 85.8 fl (81-100); MEAN CORPUSCULAR HEMOGLOBIN 28.1 pg (27.0-31.0); MEAN CORPUSCULAR HGB CONC 32.8 pg (28.0-36.0); MONOCYTE ABSOLUTE 1.2 Th/cmm (0.3-1.0); NEUTROPHILE ABSOLUTE 5.1 Th/cmm (1.8-8.0); PLATELET COUNT 171 Th/cmm (150-400); RED BLOOD COUNT 3.31 Mil/cmm (3.80-5.20); RED CELL DISTRIBUTION WIDTH 13.5 % (11.5-20.0); WHITE BLOOD COUNT 8.8 Th/cmm (4.8-10.8)
[2018-06-23 06:53] LABS: ALB/GLOB RATIO 1.1 (1.0-1.8); ALBUMIN 3.4 gm/dL (3.7-5.3); ALKALINE PHOSPHATASE 72 U/L (34-104); ANION GAP 10.4 (7.0-16.0); BILIRUBIN,TOTAL 0.4 mg/dL (0.3-1.0); BUN - UREA NITROGEN 51 mg/dL (7-25); CALCIUM SERUM 8.9 mg/dL (8.6-10.3); CARBON DIOXIDE 27.7 mEq/L (21.0-31.0); CHLORIDE 107 mEq/L (98-107); CREATININE - SERUM 2.2 mg/dL (0.6-1.2); GLUCOSE 100 mg/dL (70-105); POTASSIUM SERUM 4.1 mEq/L (3.5-5.1); SGOT 13 U/L (13-39); SGPT/ALT 8 U/L (7-52); SODIUM SERUM 141 mEq/L (136-145); TOTAL PROTEIN,SERUM 6.4 gm/dL (6.0-8.3)
[2018-06-23] MEDS: Ferrous Sulfate 325 MG TAB PO SCH (08:39)
[2018-06-23] MEDS: POLYETHYLENE GLYCOL 3350 17 GM PACK PO SCH (08:39)
[2018-06-23] MEDS: Vitamin B Complex w/Vitamin C Tab PO SCH (08:40)
--- NOTE | 2018-06-23 12:17 | Internal Medicine Prog Note ---
Internal Medicine Subjective - Subjective Service Date: 06/23/18 Patient seen and examined:: with staff Patient is:: awake, verbal, interactive, in bed Patient Complaints of:: congestion Per staff patient has:: no adverse event Internal Medicine Objective - Results Result Diagrams: 06/23/18 06:04 06/23/18 06:04 Recent Labs: Laboratory Last Values WBC 8.8 Th/cmm (4.8-10.8) 06/23/18 06:04 RBC 3.31 Mil/cmm (3.80-5.20) L 06/23/18 06:04 Hgb 9.3 gm/dL (12-16) L 06/23/18 06:04 Hct 28.4 % (41.0-60) L 06/23/18 06:04 MCV 85.8 fl (81-100) 06/23/18 06:04 MCH 28.1 pg (27.0-31.0) 06/23/18 06:04 MCHC Differential 32.8 pg (28.0-36.0) 06/23/18 06:04 RDW 13.5 % (11.5-20.0) 06/23/18 06:04 Plt Count 171 Th/cmm (150-400) 06/23/18 06:04 MPV 8.0 fl 06/23/18 06:04 Add Manual Diff YES 06/20/18 05:55 Neutrophils % 58.6 % (40.0-80.0) 06/23/18 06:04 Lymphocytes % 21.4 % (20.0-50.0) 06/23/18 06:04 Monocytes % 13.1 % (2.0-10.0) H 06/23/18 06:04 Eosinophils % 6.2 % (0.0-5.0) H 06/23/18 06:04 Basophils % 0.7 % (0.0-2.0) 06/23/18 06:04 Neutrophils (Manual) 45 % (40-80) 06/20/18 05:55 Lymphocytes 27 % (20-50) 06/20/18 05:55 Monocytes 19 % (2-10) H 06/20/18 05:55 Eosinophils 9 % (0-5) H 06/20/18 05:55 Platelet Estimate ADEQUATE (NORMAL) 06/20/18 05:55 Eos Smear Source URINE 06/19/18 18:10 Eos Smear Total Cells NONE SEEN (NONE SEEN) 06/19/18 18:10 PT 11.0 SECONDS (9.5-11.5) 06/18/18 23:35 INR 1.06 (0.5-1.4) 06/18/18 23:35 PTT (Actin FS) 27.2 SECONDS (26.0-38.0) 06/18/18 23:35 Sodium 141 mEq/L (136-145) 06/23/18 06:04 Potassium 4.1 mEq/L (3.5-5.1) 06/23/18 06:04 Chloride 107 mEq/L (98-107) 06/23/18 06:04 Carbon Dioxide 27.7 mEq/L (21.0-31.0) 06/23/18 06:04 Anion Gap 10.4 (7.0-16.0) 06/23/18 06:04 BUN 51 mg/dL (7-25) H 06/23/18 06:04 Creatinine 2.2 mg/dL (0.6-1.2) H 06/23/18 06:04 Est GFR ( Amer) TNP 06/23/18 06:04 Est GFR (Non-Af Amer) TNP 06/23/18 06:04 BUN/Creatinine Ratio 23.2 06/23/18 06:04 Glucose 100 mg/dL (70-105) 06/23/18 06:04 Uric Acid 8.1 mg/dL (2.3-6.6) H 06/19/18 15:30 Calcium 8.9 mg/dL (8.6-10.3) 06/23/18 06:04 Phosphorus 4.2 mg/dL (2.5-5.0) 06/20/18 05:55 Magnesium 2.3 mg/dL (1.9-2.7) 06/20/18 05:55 Total Bilirubin 0.4 mg/dL (0.3-1.0) 06/23/18 06:04 AST 13 U/L (13-39) 06/23/18 06:04 ALT 8 U/L (7-52) 06/23/18 06:04 Alkaline Phosphatase 72 U/L (34-104) 06/23/18 06:04 Troponin I 0.02 ng/mL (0.01-0.05) 06/18/18 23:35 B-Natriuretic Peptide 376.0 pg/mL (5.0-100.0) H 06/22/18 06:10 Total Protein 6.4 gm/dL (6.0-8.3) 06/23/18 06:04 Albumin 3.4 gm/dL (3.7-5.3) L 06/23/18 06:04 Globulin 3.0 gm/dL 06/23/18 06:04 Albumin/Globulin Ratio 1.1 (1.0-1.8) 06/23/18 06:04 Triglycerides 112 mg/dL (<150) 06/19/18 15:30 Cholesterol 189 mg/dL (<200) 06/19/18 15:30 LDL Cholesterol Direct 132 mg/dL (75-193) 06/19/18 15:30 HDL Cholesterol 45 mg/dL (23-92) 06/19/18 15:30 TSH 2.31 uIU/ml (0.34-5.60) 06/19/18 15:30 Urine Source MIDSTREAM 06/19/18 00:15 Urine Color YELLOW 06/19/18 00:15 Urine Clarity CLEAR (CLEAR) 06/19/18 00:15 Urine pH 6.0 (4.6 - 8.0) 06/19/18 00:15 Ur Specific [place] 1.015 (1.005-1.030) 06/19/18 00:15 Urine Protein 100 mg/dL (NEGATIVE) H 06/19/18 00:15 Urine Glucose (UA) NEGATIVE mg/dL (NEGATIVE) 06/19/18 00:15 Urine Ketones NEGATIVE mg/dL (NEGATIVE) 06/19/18 00:15 Urine Blood NEGATIVE (NEGATIVE) 06/19/18 00:15 Urine Nitrate NEGATIVE (NEGATIVE) 06/19/18 00:15 Urine Bilirubin NEGATIVE (NEGATIVE) 06/19/18 00:15 Urine Urobilinogen 0.2 E.U./dL (0.2 - 1.0) 06/19/18 00:15 Ur Leukocyte Esterase NEGATIVE (NEGATIVE) 06/19/18 00:15 Urine RBC 0-2 /hpf (0-5) 06/19/18 00:15 Urine WBC 0-2 /hpf (0-5) 06/19/18 00:15 Ur Epithelial Cells FEW /lpf (FEW) 06/19/18 00:15 Urine Bacteria FEW /hpf (NONE SEEN) 06/19/18 00:15 Ur Random Sodium 74 mmol/L 06/19/18 18:10 Urine Creatinine 64.0 mg/dl (28.0-217.0) 06/19/18 18:10 Microalb/Creat Ratio 640.2 mg/g creat (0.0-30.0) H 06/19/18 18:10 - Physical Exam Vitals and I&O: Vital Signs Temp 98.7 F 06/23/18 08:00 Pulse 77 06/23/18 08:41 Resp 18 06/23/18 08:00 BP 153/75 06/23/18 08:41 Pulse Ox 100 06/23/18 08:00 Intake & Output 06/22/18 06/23/18 06/23/18 18:59 06:59 18:59 Intake Total 500 300 Balance 500 300 Weight (lbs) 71.668 kg 71.668 kg Intake: Oral 500 300 Other: # Voids 2 3 # Bowel Movements 0 Stool Characteristics Soft Brown Weight Source Bedscale Bedscale Active Medications: Current Medications Acetaminophen (Tylenol) 650 mg PO Q6HR PRN PRN Reason: Temp above 101F & Mild Pain Stop: 08/18/18 07:10 Acetaminophen/Hydrocodone Bitart ([place] 10 Mg/325 Mg) 1 tab PO Q4HR PRN PRN Reason: Pain (Moderate) Stop: 08/18/18 07:10 Last Admin: 06/21/18 23:25 Dose: 1 tab Albuterol Sulfate (Albuterol 2.5mg/3ml Neb Ud) 2.5 mg HHN TID PRN PRN Reason: Wheezing Albuterol/Ipratropium (Duoneb Neb) 3 ml HHN Q4HR PRN PRN Reason: Shortness of Breath or Wheeze Stop: 08/18/18 07:10 Amlodipine Besylate (Norvasc) 10 mg PO DAILY [facility] Stop: 08/18/18 08:59 Last Admin: 06/23/18 08:40 Dose: 10 mg Aspirin (Ecotrin) 81 mg PO DAILY [facility] Stop: 08/18/18 08:59 Last Admin: 06/23/18 08:41 Dose: 81 mg Atorvastatin Calcium (Lipitor) 20 mg PO HS [facility] Stop: 08/18/18 20:59 Last Admin: 06/22/18 20:03 Dose: 20 mg Bisacodyl (Dulcolax 10 Mg Supp) 10 mg RC DAILY PRN PRN Reason: Constipation Stop: 08/18/18 07:10 Camphor/Menthol (Bengay Greaseless 10%-15%) 1 appl TP QID PRN PRN Reason: Pain (Mild) Stop: 08/18/18 16:59 Carbamide Peroxide (Debrox Otic Drops) 2 drop EACH EAR BID PRN PRN Reason: EARWAX Stop: 08/18/18 07:10 Carvedilol (Coreg) 25 mg PO Q12HR [facility] Stop: 08/18/18 08:59 Last Admin: 06/23/18 08:41 Dose: 25 mg Diphenhydramine HCl (Benadryl) 25 mg PO Q6HR PRN PRN Reason: Itching Stop: 08/18/18 07:10 Last Admin: 06/19/18 09:15 Dose: 25 mg Docusate Sodium (Colace) 100 mg PO BID [facility] Stop: 08/18/18 08:59 Last Admin: 06/23/18 08:39 Dose: 100 mg Epoetin Cristian (Epogen) 10,000 units SUBQ MoWeFr [facility] Stop: 08/20/18 13:47 Last Admin: 06/21/18 17:09 Dose: 10,000 units Ferrous Sulfate (Iron) 325 mg PO DAILY [facility] Stop: 08/18/18 08:59 Last Admin: 06/23/18 08:39 Dose: 325 mg Gabapentin (Neurontin) 600 mg PO TID [facility] Stop: 08/18/18 08:59 Last Admin: 06/23/18 08:55 Dose: Not Given Guaifenesin (Robitussin) 200 mg PO Q4HR PRN PRN Reason: Cough Stop: 08/18/18 07:10 Last Admin: 06/22/18 23:43 Dose: 200 mg Hydromorphone HCl (Dilaudid) 1 mg IVP Q4HR PRN PRN Reason: Pain (Severe) Stop: 08/18/18 07:10 Last Admin: 06/23/18 04:23 Dose: 1 mg Lorazepam (Ativan) 0.5 mg IVP Q6HR PRN; Protocol PRN Reason: Agitation Stop: 08/21/18 17:59 Last Admin: 06/23/18 01:54 Dose: 0.5 mg Magnesium Hydroxide (Milk Of Magnesia) 30 ml PO HS PRN PRN Reason: Constipation Stop: 08/18/18 07:10 Miscellaneous (Clinical Monitoring) 1 ea MC DAILY PRN PRN Reason: RENAL DOSING Stop: 08/18/18 16:50 Ondansetron HCl (Zofran) 4 mg IVP Q6H PRN PRN Reason: Nausea / Vomiting Stop: 08/21/18 05:20 Last Admin: 06/22/18 08:25 Dose: 4 mg Polyethylene Glycol (Miralax) 17 gm PO DAILY [facility] Stop: 08/18/18 08:59 Last Admin: 06/23/18 08:39 Dose: 17 gm Vitamin B Complex/Vit C/Folic Acid (Vitamin B Complex W/Vitamin C) 1 tab PO DAILY [facility] Stop: 08/18/18 08:59 Last Admin: 06/23/18 08:40 Dose: 1 tab General: weak, congested, disheveled HEENT: NC/AT, PERRLA, EOMI, anicteric sclerae Neck: Supple, +2 carotid pulse wo bruit, + JVD Lungs: rales, ronchi Cardiovascular: RRR, Normal S1, Normal S2 Abdomen: soft, non-tender, tender, thin Extremities: clear, edema, pedal pulses Neurological: no change, lethargic, muscle weakness Internal Medicine Assmt/Plan - Assessment Assessment: ALOC: on and off; observe closely. CHF: EF 35%, continue meds; adjust accordingly. HTN: adjusting meds as needed. COPD: RT protocol. ARF/chronic kidney disease: work up in progress; avoid nephrotoxic meds. Chronic pain syndrome. First degree AV block? DVT prophylaxis. Nutritional Asmnt/Malnutr-PDOC - Dietary Evaluation Malnutrition Findings (Please click <Entered> for more info): Nutritional Asmnt/Malnutrition Start: 06/19/18 15: 27 Text: Status: Complete Freq: Protocol: Document 06/19/18 15:27 [email or web address] (Rec: 06/19/18 15:41 [email or web address] [email or web address]) Nutritional Asmnt/Malnutrition Patient General Information Nutritional Screening High Risk Diagnosis acute chronic kidney disease, CHF Pertinent Medical Hx/Surgical Hx CHF, osteonecrosis, polyneuropathy, cardiomegaly, chronic anemia, osteoarthritis , hyperlipidemia, osteoporosis , hearing loss, renal insufficiency, asthma Subjective Information Pt was seen sleeping at time of visit, did not wake to greeting. PO intake is 100% per RN. Renal ultrasound done today, findings reflect a degree of chronic parenchymal disease and bilateral renal cysts, per MD report. Current Diet Order/ Nutrition Support low sodium 2gm Pertinent Medications lipitor, d5-0.45ns, colace, iron, zofran, miralax, vit b complex w/ vit c Pertinent Labs 06/18 BUN 63, cr 2.6, alb 3.6 Nutritional Hx/Data Height 1.6 m Height (Calculated Centimeters) 160.0 Current Weight (lbs) 72.121 kg Weight (Calculated Kilograms) 72.1 Weight (Calculated Grams) 26534.2 [place] Body Weight 115 Body Mass Index (BMI) 28.1 Weight Status Overweight GI Symptoms GI Symptoms None Last BM not indicated Difficult in: None Food Allergies No Skin Integrity/Comment: intact Current %PO Good (75-100%) Estimated Nutritional Goals BEE in Kcals: Using Current wt Calories/Kcals/Kg 25-30 Kcals Calculated 0098-4696 Protein: Using Current wt Protein g/k.7-0.8 Protein Calculated 50-57 Fluid: ml 5986-0270 (1ml/kcal) Nutritional Problem 1. Problem Problem altered nutrition related labs Etiology renal dysfunction Signs/Symptoms: BUN 63, Cr 2.6 Malnutrition Alert Is there a minimum of two criteria No selected? Query Text:Check all the applicable criteria. A minimum of two criteria are recommended for diagnosis of either severe or non-severe malnutrition. Malnutrition Related to Morbid Obesity Malnutrition related to morbid obesity No Intervention/Recommendation Comments 1. Recommend adding Renal 50g diet. RN Marc notified, will speak to MD. Continue with low sodium 2gm diet as ordered. 2. Monitor PO intake, wt, labs and skin integrity 3. F/U as high risk in 2-3 days Expected Outcomes/Goals Expected Outcomes/Goals 1. PO intake to meet at least 75% of nutritional needs. 2. Wt stability, skin to remain intact, labs to approach WNL. Reviewed by Vero Peterson RD
--- NOTE | 2018-06-23 13:27 | General Progress Note ---
Subjective - Review of Systems Service Date: 06/23/18 Subjective: Patient has no complaint of chest pain shortness of breath patient is deaf No complaining of shortness of breath Patient is agitated No complaint of pain Objective - Results Result Diagrams: 06/23/18 06:04 06/23/18 06:04 Recent Labs: Laboratory Last Values WBC 8.8 Th/cmm (4.8-10.8) 06/23/18 06:04 RBC 3.31 Mil/cmm (3.80-5.20) L 06/23/18 06:04 Hgb 9.3 gm/dL (12-16) L 06/23/18 06:04 Hct 28.4 % (41.0-60) L 06/23/18 06:04 MCV 85.8 fl (81-100) 06/23/18 06:04 MCH 28.1 pg (27.0-31.0) 06/23/18 06:04 MCHC Differential 32.8 pg (28.0-36.0) 06/23/18 06:04 RDW 13.5 % (11.5-20.0) 06/23/18 06:04 Plt Count 171 Th/cmm (150-400) 06/23/18 06:04 MPV 8.0 fl 06/23/18 06:04 Add Manual Diff YES 06/20/18 05:55 Neutrophils % 58.6 % (40.0-80.0) 06/23/18 06:04 Lymphocytes % 21.4 % (20.0-50.0) 06/23/18 06:04 Monocytes % 13.1 % (2.0-10.0) H 06/23/18 06:04 Eosinophils % 6.2 % (0.0-5.0) H 06/23/18 06:04 Basophils % 0.7 % (0.0-2.0) 06/23/18 06:04 Neutrophils (Manual) 45 % (40-80) 06/20/18 05:55 Lymphocytes 27 % (20-50) 06/20/18 05:55 Monocytes 19 % (2-10) H 06/20/18 05:55 Eosinophils 9 % (0-5) H 06/20/18 05:55 Platelet Estimate ADEQUATE (NORMAL) 06/20/18 05:55 Eos Smear Source URINE 06/19/18 18:10 Eos Smear Total Cells NONE SEEN (NONE SEEN) 06/19/18 18:10 PT 11.0 SECONDS (9.5-11.5) 06/18/18 23:35 INR 1.06 (0.5-1.4) 06/18/18 23:35 PTT (Actin FS) 27.2 SECONDS (26.0-38.0) 06/18/18 23:35 Sodium 141 mEq/L (136-145) 06/23/18 06:04 Potassium 4.1 mEq/L (3.5-5.1) 06/23/18 06:04 Chloride 107 mEq/L (98-107) 06/23/18 06:04 Carbon Dioxide 27.7 mEq/L (21.0-31.0) 06/23/18 06:04 Anion Gap 10.4 (7.0-16.0) 06/23/18 06:04 BUN 51 mg/dL (7-25) H 06/23/18 06:04 Creatinine 2.2 mg/dL (0.6-1.2) H 06/23/18 06:04 Est GFR ( Amer) TNP 06/23/18 06:04 Est GFR (Non-Af Amer) TNP 06/23/18 06:04 BUN/Creatinine Ratio 23.2 06/23/18 06:04 Glucose 100 mg/dL (70-105) 06/23/18 06:04 Uric Acid 8.1 mg/dL (2.3-6.6) H 06/19/18 15:30 Calcium 8.9 mg/dL (8.6-10.3) 06/23/18 06:04 Phosphorus 4.2 mg/dL (2.5-5.0) 06/20/18 05:55 Magnesium 2.3 mg/dL (1.9-2.7) 06/20/18 05:55 Total Bilirubin 0.4 mg/dL (0.3-1.0) 06/23/18 06:04 AST 13 U/L (13-39) 06/23/18 06:04 ALT 8 U/L (7-52) 06/23/18 06:04 Alkaline Phosphatase 72 U/L (34-104) 06/23/18 06:04 Troponin I 0.02 ng/mL (0.01-0.05) 06/18/18 23:35 B-Natriuretic Peptide 376.0 pg/mL (5.0-100.0) H 06/22/18 06:10 Total Protein 6.4 gm/dL (6.0-8.3) 06/23/18 06:04 Albumin 3.4 gm/dL (3.7-5.3) L 06/23/18 06:04 Globulin 3.0 gm/dL 06/23/18 06:04 Albumin/Globulin Ratio 1.1 (1.0-1.8) 06/23/18 06:04 Triglycerides 112 mg/dL (<150) 06/19/18 15:30 Cholesterol 189 mg/dL (<200) 06/19/18 15:30 LDL Cholesterol Direct 132 mg/dL (75-193) 06/19/18 15:30 HDL Cholesterol 45 mg/dL (23-92) 06/19/18 15:30 TSH 2.31 uIU/ml (0.34-5.60) 06/19/18 15:30 Urine Source MIDSTREAM 06/19/18 00:15 Urine Color YELLOW 06/19/18 00:15 Urine Clarity CLEAR (CLEAR) 06/19/18 00:15 Urine pH 6.0 (4.6 - 8.0) 06/19/18 00:15 Ur Specific [place] 1.015 (1.005-1.030) 06/19/18 00:15 Urine Protein 100 mg/dL (NEGATIVE) H 06/19/18 00:15 Urine Glucose (UA) NEGATIVE mg/dL (NEGATIVE) 06/19/18 00:15 Urine Ketones NEGATIVE mg/dL (NEGATIVE) 06/19/18 00:15 Urine Blood NEGATIVE (NEGATIVE) 06/19/18 00:15 Urine Nitrate NEGATIVE (NEGATIVE) 06/19/18 00:15 Urine Bilirubin NEGATIVE (NEGATIVE) 06/19/18 00:15 Urine Urobilinogen 0.2 E.U./dL (0.2 - 1.0) 06/19/18 00:15 Ur Leukocyte Esterase NEGATIVE (NEGATIVE) 06/19/18 00:15 Urine RBC 0-2 /hpf (0-5) 06/19/18 00:15 Urine WBC 0-2 /hpf (0-5) 06/19/18 00:15 Ur Epithelial Cells FEW /lpf (FEW) 06/19/18 00:15 Urine Bacteria FEW /hpf (NONE SEEN) 06/19/18 00:15 Ur Random Sodium 74 mmol/L 06/19/18 18:10 Urine Creatinine 64.0 mg/dl (28.0-217.0) 06/19/18 18:10 Microalb/Creat Ratio 640.2 mg/g creat (0.0-30.0) H 06/19/18 18:10 - Physical Exam Vitals and I&O: Vital Signs Temp 98.7 F 06/23/18 08:00 Pulse 77 06/23/18 08:41 Resp 18 06/23/18 08:00 BP 153/75 06/23/18 08:41 Pulse Ox 100 06/23/18 08:00 Intake & Output 06/22/18 06/23/18 06/23/18 18:59 06:59 18:59 Intake Total 500 300 Balance 500 300 Weight (lbs) 71.668 kg 71.668 kg Intake: Oral 500 300 Other: # Voids 2 3 # Bowel Movements 0 Stool Characteristics Soft Brown Weight Source Bedscale Bedscale Active Medications: Current Medications Acetaminophen (Tylenol) 650 mg PO Q6HR PRN PRN Reason: Temp above 101F & Mild Pain Stop: 08/18/18 07:10 Acetaminophen/Hydrocodone Bitart ([place] 10 Mg/325 Mg) 1 tab PO Q4HR PRN PRN Reason: Pain (Moderate) Stop: 08/18/18 07:10 Last Admin: 06/21/18 23:25 Dose: 1 tab Albuterol Sulfate (Albuterol 2.5mg/3ml Neb Ud) 2.5 mg HHN TID PRN PRN Reason: Wheezing Albuterol/Ipratropium (Duoneb Neb) 3 ml HHN Q4HR PRN PRN Reason: Shortness of Breath or Wheeze Stop: 08/18/18 07:10 Amlodipine Besylate (Norvasc) 10 mg PO DAILY [facility] Stop: 08/18/18 08:59 Last Admin: 06/23/18 08:40 Dose: 10 mg Aspirin (Ecotrin) 81 mg PO DAILY [facility] Stop: 08/18/18 08:59 Last Admin: 06/23/18 08:41 Dose: 81 mg Atorvastatin Calcium (Lipitor) 20 mg PO HS [facility] Stop: 08/18/18 20:59 Last Admin: 06/22/18 20:03 Dose: 20 mg Bisacodyl (Dulcolax 10 Mg Supp) 10 mg RC DAILY PRN PRN Reason: Constipation Stop: 08/18/18 07:10 Camphor/Menthol (Bengay Greaseless 10%-15%) 1 appl TP QID PRN PRN Reason: Pain (Mild) Stop: 08/18/18 16:59 Carbamide Peroxide (Debrox Otic Drops) 2 drop EACH EAR BID PRN PRN Reason: EARWAX Stop: 08/18/18 07:10 Carvedilol (Coreg) 25 mg PO Q12HR [facility] Stop: 08/18/18 08:59 Last Admin: 06/23/18 08:41 Dose: 25 mg Diphenhydramine HCl (Benadryl) 25 mg PO Q6HR PRN PRN Reason: Itching Stop: 08/18/18 07:10 Last Admin: 06/19/18 09:15 Dose: 25 mg Docusate Sodium (Colace) 100 mg PO BID [facility] Stop: 08/18/18 08:59 Last Admin: 06/23/18 08:39 Dose: 100 mg Epoetin Cristian (Epogen) 10,000 units SUBQ MoWeFr [facility] Stop: 08/20/18 13:47 Last Admin: 06/21/18 17:09 Dose: 10,000 units Ferrous Sulfate (Iron) 325 mg PO DAILY [facility] Stop: 08/18/18 08:59 Last Admin: 06/23/18 08:39 Dose: 325 mg Gabapentin (Neurontin) 600 mg PO TID [facility] Stop: 08/18/18 08:59 Last Admin: 06/23/18 08:55 Dose: Not Given Guaifenesin (Robitussin) 200 mg PO Q4HR PRN PRN Reason: Cough Stop: 08/18/18 07:10 Last Admin: 06/22/18 23:43 Dose: 200 mg Hydromorphone HCl (Dilaudid) 1 mg IVP Q4HR PRN PRN Reason: Pain (Severe) Stop: 08/18/18 07:10 Last Admin: 06/23/18 04:23 Dose: 1 mg Lorazepam (Ativan) 0.5 mg IVP Q6HR PRN; Protocol PRN Reason: Agitation Stop: 08/21/18 17:59 Last Admin: 06/23/18 01:54 Dose: 0.5 mg Magnesium Hydroxide (Milk Of Magnesia) 30 ml PO HS PRN PRN Reason: Constipation Stop: 08/18/18 07:10 Miscellaneous (Clinical Monitoring) 1 ea MC DAILY PRN PRN Reason: RENAL DOSING Stop: 08/18/18 16:50 Ondansetron HCl (Zofran) 4 mg IVP Q6H PRN PRN Reason: Nausea / Vomiting Stop: 08/21/18 05:20 Last Admin: 06/22/18 08:25 Dose: 4 mg Polyethylene Glycol (Miralax) 17 gm PO DAILY [facility] Stop: 08/18/18 08:59 Last Admin: 06/23/18 08:39 Dose: 17 gm Vitamin B Complex/Vit C/Folic Acid (Vitamin B Complex W/Vitamin C) 1 tab PO DAILY [facility] Stop: 08/18/18 08:59 Last Admin: 06/23/18 08:40 Dose: 1 tab General: Alert, No acute distress, Moderate distress, Other (uncooperative), no Cooperative HEENT: Atraumatic, PERRLA, Mucous membr. moist/pink Neck: Supple, +2 carotid pulse wo bruit (flat) Cardiovascular: Regular rate, Normal S1, Normal S2 Lungs: Other (few rhonchi) Abdomen: Bowel sounds, Soft, Obese Extremities: no Edema Neurological: Normal tone, Sensation intact Skin: no Rash Psych/Mental Status: Other (impulsive, uncontrolled) Assessment/Plan - Assessment Assessment: Congestive heart failure systolic dysfunction acute Hypertension Hyperlipidemia CKD stage V Deafness Osteoporosis Iron deficiency anemia COPD Echocardiogram ejection fraction 38% left atrial enlargement and right atrial enlargement mild mitral regurgitation and mild tricuspid regurgitation mild pulmonary hypertension right ventricular systolic pressure 46 mmHg - Plan Plan: Continue present management as renal evaluation Echocardiogram ejection fraction 38% mild mitral regurgitation mild tricuspid regurgitation left atrial enlargement and right atrial enlargement cardiomyopathy BNP slightly elevated Nutritional Asmnt/Malnutr-PDOC - Dietary Evaluation Malnutrition Findings (Please click <Entered> for more info): Nutritional Asmnt/Malnutrition Start: 06/19/18 15: 27 Text: Status: Complete Freq: Protocol: Document 06/19/18 15:27 [email or web address] (Rec: 06/19/18 15:41 [email or web address] [email or web address]) Nutritional Asmnt/Malnutrition Patient General Information Nutritional Screening High Risk Diagnosis acute chronic kidney disease, CHF Pertinent Medical Hx/Surgical Hx CHF, osteonecrosis, polyneuropathy, cardiomegaly, chronic anemia, osteoarthritis , hyperlipidemia, osteoporosis , hearing loss, renal insufficiency, asthma Subjective Information Pt was seen sleeping at time of visit, did not wake to greeting. PO intake is 100% per RN. Renal ultrasound done today, findings reflect a degree of chronic parenchymal disease and bilateral renal cysts, per MD report. Current Diet Order/ Nutrition Support low sodium 2gm Pertinent Medications lipitor, d5-0.45ns, colace, iron, zofran, miralax, vit b complex w/ vit c Pertinent Labs 06/18 BUN 63, cr 2.6, alb 3.6 Nutritional Hx/Data Height 1.6 m Height (Calculated Centimeters) 160.0 Current Weight (lbs) 72.121 kg Weight (Calculated Kilograms) 72.1 Weight (Calculated Grams) 35268.2 [place] Body Weight 115 Body Mass Index (BMI) 28.1 Weight Status Overweight GI Symptoms GI Symptoms None Last BM not indicated Difficult in: None Food Allergies No Skin Integrity/Comment: intact Current %PO Good (75-100%) Estimated Nutritional Goals BEE in Kcals: Using Current wt Calories/Kcals/Kg 25-30 Kcals Calculated 8521-2046 Protein: Using Current wt Protein g/k.7-0.8 Protein Calculated 50-57 Fluid: ml 0659-0990 (1ml/kcal) Nutritional Problem 1. Problem Problem altered nutrition related labs Etiology renal dysfunction Signs/Symptoms: BUN 63, Cr 2.6 Malnutrition Alert Is there a minimum of two criteria No selected? Query Text:Check all the applicable criteria. A minimum of two criteria are recommended for diagnosis of either severe or non-severe malnutrition. Malnutrition Related to Morbid Obesity Malnutrition related to morbid obesity No Intervention/Recommendation Comments 1. Recommend adding Renal 50g diet. TAO Tran notified, will speak to MD. Continue with low sodium 2gm diet as ordered. 2. Monitor PO intake, wt, labs and skin integrity 3. F/U as high risk in 2-3 days Expected Outcomes/Goals Expected Outcomes/Goals 1. PO intake to meet at least 75% of nutritional needs. 2. Wt stability, skin to remain intact, labs to approach WNL. Reviewed by Vero Peterson RD
[2018-06-23] MEDS: Hydrocodone/APAP 10 mg/325 mg Tab PO PRN ×2 (14:21→20:46)
--- NOTE | 2018-06-23 14:41 | General Progress Note ---
Subjective - Review of Systems Service Date: 06/23/18 Subjective: awake, incoherent, impulsive, occ. screaming, aggressive behaviour Objective - Results Result Diagrams: 06/23/18 06:04 06/23/18 06:04 Recent Labs: Laboratory Last Values WBC 8.8 Th/cmm (4.8-10.8) 06/23/18 06:04 RBC 3.31 Mil/cmm (3.80-5.20) L 06/23/18 06:04 Hgb 9.3 gm/dL (12-16) L 06/23/18 06:04 Hct 28.4 % (41.0-60) L 06/23/18 06:04 MCV 85.8 fl (81-100) 06/23/18 06:04 MCH 28.1 pg (27.0-31.0) 06/23/18 06:04 MCHC Differential 32.8 pg (28.0-36.0) 06/23/18 06:04 RDW 13.5 % (11.5-20.0) 06/23/18 06:04 Plt Count 171 Th/cmm (150-400) 06/23/18 06:04 MPV 8.0 fl 06/23/18 06:04 Add Manual Diff YES 06/20/18 05:55 Neutrophils % 58.6 % (40.0-80.0) 06/23/18 06:04 Lymphocytes % 21.4 % (20.0-50.0) 06/23/18 06:04 Monocytes % 13.1 % (2.0-10.0) H 06/23/18 06:04 Eosinophils % 6.2 % (0.0-5.0) H 06/23/18 06:04 Basophils % 0.7 % (0.0-2.0) 06/23/18 06:04 Neutrophils (Manual) 45 % (40-80) 06/20/18 05:55 Lymphocytes 27 % (20-50) 06/20/18 05:55 Monocytes 19 % (2-10) H 06/20/18 05:55 Eosinophils 9 % (0-5) H 06/20/18 05:55 Platelet Estimate ADEQUATE (NORMAL) 06/20/18 05:55 Eos Smear Source URINE 06/19/18 18:10 Eos Smear Total Cells NONE SEEN (NONE SEEN) 06/19/18 18:10 PT 11.0 SECONDS (9.5-11.5) 06/18/18 23:35 INR 1.06 (0.5-1.4) 06/18/18 23:35 PTT (Actin FS) 27.2 SECONDS (26.0-38.0) 06/18/18 23:35 Sodium 141 mEq/L (136-145) 06/23/18 06:04 Potassium 4.1 mEq/L (3.5-5.1) 06/23/18 06:04 Chloride 107 mEq/L (98-107) 06/23/18 06:04 Carbon Dioxide 27.7 mEq/L (21.0-31.0) 06/23/18 06:04 Anion Gap 10.4 (7.0-16.0) 06/23/18 06:04 BUN 51 mg/dL (7-25) H 06/23/18 06:04 Creatinine 2.2 mg/dL (0.6-1.2) H 06/23/18 06:04 Est GFR ( Amer) TNP 06/23/18 06:04 Est GFR (Non-Af Amer) TNP 06/23/18 06:04 BUN/Creatinine Ratio 23.2 06/23/18 06:04 Glucose 100 mg/dL (70-105) 06/23/18 06:04 Uric Acid 8.1 mg/dL (2.3-6.6) H 06/19/18 15:30 Calcium 8.9 mg/dL (8.6-10.3) 06/23/18 06:04 Phosphorus 4.2 mg/dL (2.5-5.0) 06/20/18 05:55 Magnesium 2.3 mg/dL (1.9-2.7) 06/20/18 05:55 Total Bilirubin 0.4 mg/dL (0.3-1.0) 06/23/18 06:04 AST 13 U/L (13-39) 06/23/18 06:04 ALT 8 U/L (7-52) 06/23/18 06:04 Alkaline Phosphatase 72 U/L (34-104) 06/23/18 06:04 Troponin I 0.02 ng/mL (0.01-0.05) 06/18/18 23:35 B-Natriuretic Peptide 376.0 pg/mL (5.0-100.0) H 06/22/18 06:10 Total Protein 6.4 gm/dL (6.0-8.3) 06/23/18 06:04 Albumin 3.4 gm/dL (3.7-5.3) L 06/23/18 06:04 Globulin 3.0 gm/dL 06/23/18 06:04 Albumin/Globulin Ratio 1.1 (1.0-1.8) 06/23/18 06:04 Triglycerides 112 mg/dL (<150) 06/19/18 15:30 Cholesterol 189 mg/dL (<200) 06/19/18 15:30 LDL Cholesterol Direct 132 mg/dL (75-193) 06/19/18 15:30 HDL Cholesterol 45 mg/dL (23-92) 06/19/18 15:30 TSH 2.31 uIU/ml (0.34-5.60) 06/19/18 15:30 Urine Source MIDSTREAM 06/19/18 00:15 Urine Color YELLOW 06/19/18 00:15 Urine Clarity CLEAR (CLEAR) 06/19/18 00:15 Urine pH 6.0 (4.6 - 8.0) 06/19/18 00:15 Ur Specific [place] 1.015 (1.005-1.030) 06/19/18 00:15 Urine Protein 100 mg/dL (NEGATIVE) H 06/19/18 00:15 Urine Glucose (UA) NEGATIVE mg/dL (NEGATIVE) 06/19/18 00:15 Urine Ketones NEGATIVE mg/dL (NEGATIVE) 06/19/18 00:15 Urine Blood NEGATIVE (NEGATIVE) 06/19/18 00:15 Urine Nitrate NEGATIVE (NEGATIVE) 06/19/18 00:15 Urine Bilirubin NEGATIVE (NEGATIVE) 06/19/18 00:15 Urine Urobilinogen 0.2 E.U./dL (0.2 - 1.0) 06/19/18 00:15 Ur Leukocyte Esterase NEGATIVE (NEGATIVE) 06/19/18 00:15 Urine RBC 0-2 /hpf (0-5) 06/19/18 00:15 Urine WBC 0-2 /hpf (0-5) 06/19/18 00:15 Ur Epithelial Cells FEW /lpf (FEW) 06/19/18 00:15 Urine Bacteria FEW /hpf (NONE SEEN) 06/19/18 00:15 Ur Random Sodium 74 mmol/L 06/19/18 18:10 Urine Creatinine 64.0 mg/dl (28.0-217.0) 06/19/18 18:10 Microalb/Creat Ratio 640.2 mg/g creat (0.0-30.0) H 06/19/18 18:10 - Physical Exam Vitals and I&O: Vital Signs Temp 98.7 F 06/23/18 08:00 Pulse 77 06/23/18 08:41 Resp 18 06/23/18 08:00 BP 153/75 06/23/18 08:41 Pulse Ox 100 06/23/18 08:00 Intake & Output 06/22/18 06/23/18 06/23/18 18:59 06:59 18:59 Intake Total 500 300 Balance 500 300 Weight (lbs) 71.668 kg 71.668 kg Intake: Oral 500 300 Other: # Voids 2 3 # Bowel Movements 0 Stool Characteristics Soft Brown Weight Source Bedscale Bedscale Active Medications: Current Medications Acetaminophen (Tylenol) 650 mg PO Q6HR PRN PRN Reason: Temp above 101F & Mild Pain Stop: 08/18/18 07:10 Acetaminophen/Hydrocodone Bitart ([place] 10 Mg/325 Mg) 1 tab PO Q4HR PRN PRN Reason: Pain (Moderate) Stop: 08/18/18 07:10 Last Admin: 06/23/18 14:21 Dose: 1 tab Albuterol Sulfate (Albuterol 2.5mg/3ml Neb Ud) 2.5 mg HHN TID PRN PRN Reason: Wheezing Albuterol/Ipratropium (Duoneb Neb) 3 ml HHN Q4HR PRN PRN Reason: Shortness of Breath or Wheeze Stop: 08/18/18 07:10 Amlodipine Besylate (Norvasc) 10 mg PO DAILY [facility] Stop: 08/18/18 08:59 Last Admin: 06/23/18 08:40 Dose: 10 mg Aspirin (Ecotrin) 81 mg PO DAILY [facility] Stop: 08/18/18 08:59 Last Admin: 06/23/18 08:41 Dose: 81 mg Atorvastatin Calcium (Lipitor) 20 mg PO HS [facility] Stop: 08/18/18 20:59 Last Admin: 06/22/18 20:03 Dose: 20 mg Bisacodyl (Dulcolax 10 Mg Supp) 10 mg RC DAILY PRN PRN Reason: Constipation Stop: 08/18/18 07:10 Camphor/Menthol (Bengay Greaseless 10%-15%) 1 appl TP QID PRN PRN Reason: Pain (Mild) Stop: 08/18/18 16:59 Carbamide Peroxide (Debrox Otic Drops) 2 drop EACH EAR BID PRN PRN Reason: EARWAX Stop: 08/18/18 07:10 Carvedilol (Coreg) 25 mg PO Q12HR [facility] Stop: 08/18/18 08:59 Last Admin: 06/23/18 08:41 Dose: 25 mg Diphenhydramine HCl (Benadryl) 25 mg PO Q6HR PRN PRN Reason: Itching Stop: 08/18/18 07:10 Last Admin: 06/19/18 09:15 Dose: 25 mg Docusate Sodium (Colace) 100 mg PO BID [facility] Stop: 08/18/18 08:59 Last Admin: 06/23/18 08:39 Dose: 100 mg Epoetin Cristian (Epogen) 10,000 units SUBQ MoWeFr [facility] Stop: 08/20/18 13:47 Last Admin: 06/21/18 17:09 Dose: 10,000 units Ferrous Sulfate (Iron) 325 mg PO DAILY [facility] Stop: 08/18/18 08:59 Last Admin: 06/23/18 08:39 Dose: 325 mg Gabapentin (Neurontin) 600 mg PO TID [facility] Stop: 08/18/18 08:59 Last Admin: 06/23/18 14:26 Dose: Not Given Guaifenesin (Robitussin) 200 mg PO Q4HR PRN PRN Reason: Cough Stop: 08/18/18 07:10 Last Admin: 06/22/18 23:43 Dose: 200 mg Hydromorphone HCl (Dilaudid) 1 mg IVP Q4HR PRN PRN Reason: Pain (Severe) Stop: 08/18/18 07:10 Last Admin: 06/23/18 04:23 Dose: 1 mg Lorazepam (Ativan) 0.5 mg IVP Q6HR PRN; Protocol PRN Reason: Agitation Stop: 08/21/18 17:59 Last Admin: 06/23/18 01:54 Dose: 0.5 mg Magnesium Hydroxide (Milk Of Magnesia) 30 ml PO HS PRN PRN Reason: Constipation Stop: 08/18/18 07:10 Miscellaneous (Clinical Monitoring) 1 ea MC DAILY PRN PRN Reason: RENAL DOSING Stop: 08/18/18 16:50 Ondansetron HCl (Zofran) 4 mg IVP Q6H PRN PRN Reason: Nausea / Vomiting Stop: 08/21/18 05:20 Last Admin: 06/22/18 08:25 Dose: 4 mg Polyethylene Glycol (Miralax) 17 gm PO DAILY [facility] Stop: 08/18/18 08:59 Last Admin: 06/23/18 08:39 Dose: 17 gm Vitamin B Complex/Vit C/Folic Acid (Vitamin B Complex W/Vitamin C) 1 tab PO DAILY [facility] Stop: 08/18/18 08:59 Last Admin: 06/23/18 08:40 Dose: 1 tab General: Alert, No acute distress, Moderate distress, Other (uncooperative), no Cooperative HEENT: Atraumatic, PERRLA, Mucous membr. moist/pink Neck: Supple, +2 carotid pulse wo bruit (flat) Cardiovascular: Regular rate, Normal S1, Normal S2 Lungs: Other (few rhonchi) Abdomen: Bowel sounds, Soft, Obese Extremities: no Edema Neurological: Normal tone, Sensation intact Skin: no Rash Psych/Mental Status: Other ( uncooperative) Assessment/Plan - Assessment Assessment: CKD Deaf DJD both Hips Ess Htn Dyslipidemia Osteoporosis Polyneuropathy COPD acute pysch decompensation vs. Delirium - Plan Plan: Lab - Result Diagrams 06/20/18 05:55 06/20/18 05:55 Current Medications Acetaminophen (Tylenol) 650 mg PO Q6HR PRN PRN Reason: Temp above 101F & Mild Pain Stop: 08/18/18 07:10 Acetaminophen/Hydrocodone Bitart ([place] 10 Mg/325 Mg) 1 tab PO Q4HR PRN PRN Reason: Pain (Moderate) Stop: 08/18/18 07:10 Albuterol Sulfate (Albuterol 2.5mg/3ml Neb Ud) 2.5 mg HHN TID PRN PRN Reason: Wheezing Albuterol/Ipratropium (Duoneb Neb) 3 ml HHN Q4HR PRN PRN Reason: Shortness of Breath or Wheeze Stop: 08/18/18 07:10 Amlodipine Besylate (Norvasc) 10 mg PO DAILY [facility] Stop: 08/18/18 08:59 Last Admin: 06/20/18 09:20 Dose: 10 mg Aspirin (Ecotrin) 81 mg PO DAILY [facility] Stop: 08/18/18 08:59 Last Admin: 06/20/18 09:15 Dose: 81 mg Atorvastatin Calcium (Lipitor) 20 mg PO HS [facility] Stop: 08/18/18 20:59 Last Admin: 06/19/18 21:10 Dose: 20 mg Bisacodyl (Dulcolax 10 Mg Supp) 10 mg RC DAILY PRN PRN Reason: Constipation Stop: 08/18/18 07:10 Camphor/Menthol (Bengay Greaseless 10%-15%) 1 appl TP QID PRN PRN Reason: Pain (Mild) Stop: 08/18/18 16:59 Carbamide Peroxide (Debrox Otic Drops) 2 drop EACH EAR BID PRN PRN Reason: EARWAX Stop: 08/18/18 07:10 Carvedilol (Coreg) 25 mg PO Q12HR [facility] Stop: 08/18/18 08:59 Last Admin: 06/20/18 09:18 Dose: 25 mg Diphenhydramine HCl (Benadryl) 25 mg PO Q6HR PRN PRN Reason: Itching Stop: 08/18/18 07:10 Last Admin: 06/19/18 09:15 Dose: 25 mg Docusate Sodium (Colace) 100 mg PO BID [facility] Stop: 08/18/18 08:59 Last Admin: 06/20/18 09:14 Dose: 100 mg Ferrous Sulfate (Iron) 325 mg PO DAILY [facility] Stop: 08/18/18 08:59 Last Admin: 06/20/18 09:13 Dose: 325 mg Gabapentin (Neurontin) 600 mg PO TID [facility] Stop: 08/18/18 08:59 Last Admin: 06/20/18 09:14 Dose: 600 mg Guaifenesin (Robitussin) 200 mg PO Q4HR PRN PRN Reason: Cough Stop: 08/18/18 07:10 Hydromorphone HCl (Dilaudid) 1 mg IVP Q4HR PRN PRN Reason: Pain (Severe) Stop: 08/18/18 07:10 Last Admin: 06/20/18 09:10 Dose: 1 mg Magnesium Hydroxide (Milk Of Magnesia) 30 ml PO HS PRN PRN Reason: Constipation Stop: 08/18/18 07:10 Miscellaneous (Clinical Monitoring) 1 ea MC DAILY PRN PRN Reason: RENAL DOSING Stop: 08/18/18 16:50 Ondansetron HCl (Zofran Odt) 8 mg PO Q8HR PRN PRN Reason: Nausea / Vomiting Polyethylene Glycol (Miralax) 17 gm PO DAILY KRISTIN Stop: 08/18/18 08:59 Last Admin: 06/20/18 10:36 Dose: Not Given Vitamin B Complex/Vit C/Folic Acid (Vitamin B Complex W/Vitamin C) 1 tab PO DAILY KRISTIN Stop: 08/18/18 08:59 Last Admin: 06/20/18 09:15 Dose: 1 tab Lab - Result Diagrams 06/23/18 06:04 06/23/18 06:04 Kidney fnc improved w/ BUN/CR of 51/2.2 possibly her baseline Renal US revealed b/l renal cysts start Epo for anemia encourage po fluid intake consider psych eval for impulsive, uncontrolled behaviour Nutritional Asmnt/Malnutr-PDOC - Dietary Evaluation Malnutrition Findings (Please click <Entered> for more info): Nutritional Asmnt/Malnutrition Start: 06/19/18 15: 27 Text: Status: Complete Freq: Protocol: Document 06/19/18 15:27 [email or web address] (Rec: 06/19/18 15:41 [email or web address] [email or web address]) Nutritional Asmnt/Malnutrition Patient General Information Nutritional Screening High Risk Diagnosis acute chronic kidney disease, CHF Pertinent Medical Hx/Surgical Hx CHF, osteonecrosis, polyneuropathy, cardiomegaly, chronic anemia, osteoarthritis , hyperlipidemia, osteoporosis , hearing loss, renal insufficiency, asthma Subjective Information Pt was seen sleeping at time of visit, did not wake to greeting. PO intake is 100% per RN. Renal ultrasound done today, findings reflect a degree of chronic parenchymal disease and bilateral renal cysts, per MD report. Current Diet Order/ Nutrition Support low sodium 2gm Pertinent Medications lipitor, d5-0.45ns, colace, iron, zofran, miralax, vit b complex w/ vit c Pertinent Labs 06/18 BUN 63, cr 2.6, alb 3.6 Nutritional Hx/Data Height 1.6 m Height (Calculated Centimeters) 160.0 Current Weight (lbs) 72.121 kg Weight (Calculated Kilograms) 72.1 Weight (Calculated Grams) 47385.2 [place] Body Weight 115 Body Mass Index (BMI) 28.1 Weight Status Overweight GI Symptoms GI Symptoms None Last BM not indicated Difficult in: None Food Allergies No Skin Integrity/Comment: intact Current %PO Good (75-100%) Estimated Nutritional Goals BEE in Kcals: Using Current wt Calories/Kcals/Kg 25-30 Kcals Calculated 9898-3198 Protein: Using Current wt Protein g/k.7-0.8 Protein Calculated 50-57 Fluid: ml 0168-3223 (1ml/kcal) Nutritional Problem 1. Problem Problem altered nutrition related labs Etiology renal dysfunction Signs/Symptoms: BUN 63, Cr 2.6 Malnutrition Alert Is there a minimum of two criteria No selected? Query Text:Check all the applicable criteria. A minimum of two criteria are recommended for diagnosis of either severe or non-severe malnutrition. Malnutrition Related to Morbid Obesity Malnutrition related to morbid obesity No Intervention/Recommendation Comments 1. Recommend adding Renal 50g diet. TAO Tran notified, will speak to MD. Continue with low sodium 2gm diet as ordered. 2. Monitor PO intake, wt, labs and skin integrity 3. F/U as high risk in 2-3 days Expected Outcomes/Goals Expected Outcomes/Goals 1. PO intake to meet at least 75% of nutritional needs. 2. Wt stability, skin to remain intact, labs to approach WNL. Reviewed by Vero Peterson RD
[2018-06-23] MEDS: Atorvastatin Calcium 10 MG TAB PO SCH (20:47)
[2018-06-24] MEDS: guaiFENesin 200 MG/10 ML UDC PO PRN ×4 (01:59→19:28)
[2018-06-24 05:50] LABS: ANION GAP 11.8 (7.0-16.0); BUN - UREA NITROGEN 54 mg/dL (7-25); CALCIUM SERUM 8.7 mg/dL (8.6-10.3); CARBON DIOXIDE 23.5 mEq/L (21.0-31.0); CHLORIDE 109 mEq/L (98-107); CREATININE - SERUM 2.4 mg/dL (0.6-1.2); GLUCOSE 106 mg/dL (70-105); POTASSIUM SERUM 4.3 mEq/L (3.5-5.1); SODIUM SERUM 140 mEq/L (136-145)
[2018-06-24] MEDS: HYDROmorphone 1 mg/mL 1mL Syr IVP PRN ×4 (07:46→20:28)
[2018-06-24] MEDS: Ferrous Sulfate 325 MG TAB PO SCH (08:04)
[2018-06-24] MEDS: Vitamin B Complex w/Vitamin C Tab PO SCH (08:04)
[2018-06-24] MEDS: POLYETHYLENE GLYCOL 3350 17 GM PACK PO SCH (08:06)
--- NOTE | 2018-06-24 11:05 | General Progress Note ---
Subjective - Review of Systems Service Date: 06/24/18 Subjective: Patient has no complaint of chest pain shortness of breath patient is deaf No complaining of shortness of breath Patient awake alert less shortness of breath Objective - Results Result Diagrams: 06/23/18 06:04 06/24/18 04:50 Recent Labs: Laboratory Last Values WBC 8.8 Th/cmm (4.8-10.8) 06/23/18 06:04 RBC 3.31 Mil/cmm (3.80-5.20) L 06/23/18 06:04 Hgb 9.3 gm/dL (12-16) L 06/23/18 06:04 Hct 28.4 % (41.0-60) L 06/23/18 06:04 MCV 85.8 fl (81-100) 06/23/18 06:04 MCH 28.1 pg (27.0-31.0) 06/23/18 06:04 MCHC Differential 32.8 pg (28.0-36.0) 06/23/18 06:04 RDW 13.5 % (11.5-20.0) 06/23/18 06:04 Plt Count 171 Th/cmm (150-400) 06/23/18 06:04 MPV 8.0 fl 06/23/18 06:04 Add Manual Diff YES 06/20/18 05:55 Neutrophils % 58.6 % (40.0-80.0) 06/23/18 06:04 Lymphocytes % 21.4 % (20.0-50.0) 06/23/18 06:04 Monocytes % 13.1 % (2.0-10.0) H 06/23/18 06:04 Eosinophils % 6.2 % (0.0-5.0) H 06/23/18 06:04 Basophils % 0.7 % (0.0-2.0) 06/23/18 06:04 Neutrophils (Manual) 45 % (40-80) 06/20/18 05:55 Lymphocytes 27 % (20-50) 06/20/18 05:55 Monocytes 19 % (2-10) H 06/20/18 05:55 Eosinophils 9 % (0-5) H 06/20/18 05:55 Platelet Estimate ADEQUATE (NORMAL) 06/20/18 05:55 Eos Smear Source URINE 06/19/18 18:10 Eos Smear Total Cells NONE SEEN (NONE SEEN) 06/19/18 18:10 PT 11.0 SECONDS (9.5-11.5) 06/18/18 23:35 INR 1.06 (0.5-1.4) 06/18/18 23:35 PTT (Actin FS) 27.2 SECONDS (26.0-38.0) 06/18/18 23:35 Sodium 140 mEq/L (136-145) 06/24/18 04:50 Potassium 4.3 mEq/L (3.5-5.1) 06/24/18 04:50 Chloride 109 mEq/L (98-107) H 06/24/18 04:50 Carbon Dioxide 23.5 mEq/L (21.0-31.0) 06/24/18 04:50 Anion Gap 11.8 (7.0-16.0) 06/24/18 04:50 BUN 54 mg/dL (7-25) H 06/24/18 04:50 Creatinine 2.4 mg/dL (0.6-1.2) H 06/24/18 04:50 Est GFR ( Amer) TNP 06/24/18 04:50 Est GFR (Non-Af Amer) TNP 06/24/18 04:50 BUN/Creatinine Ratio 22.5 06/24/18 04:50 Glucose 106 mg/dL (70-105) H 06/24/18 04:50 Uric Acid 8.1 mg/dL (2.3-6.6) H 06/19/18 15:30 Calcium 8.7 mg/dL (8.6-10.3) 06/24/18 04:50 Phosphorus 4.2 mg/dL (2.5-5.0) 06/20/18 05:55 Magnesium 2.3 mg/dL (1.9-2.7) 06/20/18 05:55 Total Bilirubin 0.4 mg/dL (0.3-1.0) 06/23/18 06:04 AST 13 U/L (13-39) 06/23/18 06:04 ALT 8 U/L (7-52) 06/23/18 06:04 Alkaline Phosphatase 72 U/L (34-104) 06/23/18 06:04 Troponin I 0.02 ng/mL (0.01-0.05) 06/18/18 23:35 B-Natriuretic Peptide 480.0 pg/mL (5.0-100.0) H 06/24/18 04:50 Total Protein 6.4 gm/dL (6.0-8.3) 06/23/18 06:04 Albumin 3.4 gm/dL (3.7-5.3) L 06/23/18 06:04 Globulin 3.0 gm/dL 06/23/18 06:04 Albumin/Globulin Ratio 1.1 (1.0-1.8) 06/23/18 06:04 Triglycerides 112 mg/dL (<150) 06/19/18 15:30 Cholesterol 189 mg/dL (<200) 06/19/18 15:30 LDL Cholesterol Direct 132 mg/dL (75-193) 06/19/18 15:30 HDL Cholesterol 45 mg/dL (23-92) 06/19/18 15:30 TSH 2.31 uIU/ml (0.34-5.60) 06/19/18 15:30 Urine Source MIDSTREAM 06/19/18 00:15 Urine Color YELLOW 06/19/18 00:15 Urine Clarity CLEAR (CLEAR) 06/19/18 00:15 Urine pH 6.0 (4.6 - 8.0) 06/19/18 00:15 Ur Specific [place] 1.015 (1.005-1.030) 06/19/18 00:15 Urine Protein 100 mg/dL (NEGATIVE) H 06/19/18 00:15 Urine Glucose (UA) NEGATIVE mg/dL (NEGATIVE) 06/19/18 00:15 Urine Ketones NEGATIVE mg/dL (NEGATIVE) 06/19/18 00:15 Urine Blood NEGATIVE (NEGATIVE) 06/19/18 00:15 Urine Nitrate NEGATIVE (NEGATIVE) 06/19/18 00:15 Urine Bilirubin NEGATIVE (NEGATIVE) 06/19/18 00:15 Urine Urobilinogen 0.2 E.U./dL (0.2 - 1.0) 06/19/18 00:15 Ur Leukocyte Esterase NEGATIVE (NEGATIVE) 06/19/18 00:15 Urine RBC 0-2 /hpf (0-5) 06/19/18 00:15 Urine WBC 0-2 /hpf (0-5) 06/19/18 00:15 Ur Epithelial Cells FEW /lpf (FEW) 06/19/18 00:15 Urine Bacteria FEW /hpf (NONE SEEN) 06/19/18 00:15 Ur Random Sodium 74 mmol/L 06/19/18 18:10 Urine Creatinine 64.0 mg/dl (28.0-217.0) 06/19/18 18:10 Microalb/Creat Ratio 640.2 mg/g creat (0.0-30.0) H 06/19/18 18:10 - Physical Exam Vitals and I&O: Vital Signs Temp 99 F 06/24/18 00:00 Pulse 77 06/24/18 08:21 Resp 20 06/24/18 08:21 BP 147/68 06/24/18 08:05 Pulse Ox 94 06/24/18 08:21 Intake & Output 06/23/18 06/24/18 06/24/18 18:59 06:59 18:59 Intake Total 700 300 Balance 700 300 Weight (lbs) 71.668 kg 71.668 kg Intake: Oral 700 300 Other: # Voids 2 2 # Bowel Movements 1 Stool Characteristics Soft Soft Brown Brown Weight Source Bedscale Bedscale Active Medications: Current Medications Acetaminophen (Tylenol) 650 mg PO Q6HR PRN PRN Reason: Temp above 101F & Mild Pain Stop: 08/18/18 07:10 Acetaminophen/Hydrocodone Bitart ([place] 10 Mg/325 Mg) 1 tab PO Q4HR PRN PRN Reason: Pain (Moderate) Stop: 08/18/18 07:10 Last Admin: 06/23/18 20:46 Dose: 1 tab Albuterol/Ipratropium (Duoneb Neb) 3 ml HHN Q4HR PRN PRN Reason: Shortness of Breath or Wheeze Stop: 08/18/18 07:10 Amlodipine Besylate (Norvasc) 10 mg PO DAILY [facility] Stop: 08/18/18 08:59 Last Admin: 06/24/18 08:05 Dose: 10 mg Aspirin (Ecotrin) 81 mg PO DAILY [facility] Stop: 08/18/18 08:59 Last Admin: 06/24/18 08:04 Dose: 81 mg Atorvastatin Calcium (Lipitor) 20 mg PO HS [facility] Stop: 08/18/18 20:59 Last Admin: 06/23/18 20:47 Dose: 20 mg Bisacodyl (Dulcolax 10 Mg Supp) 10 mg RC DAILY PRN PRN Reason: Constipation Stop: 08/18/18 07:10 Camphor/Menthol ([place] Greaseless 10%-15%) 1 appl TP QID PRN PRN Reason: Pain (Mild) Stop: 08/18/18 16:59 Carbamide Peroxide (Debrox Otic Drops) 2 drop EACH EAR BID PRN PRN Reason: EARWAX Stop: 08/18/18 07:10 Carvedilol (Coreg) 25 mg PO Q12HR KRISTIN Stop: 08/18/18 08:59 Last Admin: 06/24/18 08:05 Dose: 25 mg Diphenhydramine HCl (Benadryl) 25 mg PO Q6HR PRN PRN Reason: Itching Stop: 08/18/18 07:10 Last Admin: 06/19/18 09:15 Dose: 25 mg Docusate Sodium (Colace) 100 mg PO BID [facility] Stop: 08/18/18 08:59 Last Admin: 06/24/18 08:06 Dose: Not Given Epoetin Cristian (Epogen) 10,000 units SUBQ MoWeFr [facility] Stop: 08/20/18 13:47 Last Admin: 06/21/18 17:09 Dose: 10,000 units Ferrous Sulfate (Iron) 325 mg PO DAILY [facility] Stop: 08/18/18 08:59 Last Admin: 06/24/18 08:04 Dose: 325 mg Gabapentin (Neurontin) 600 mg PO TID [facility] Stop: 08/18/18 08:59 Last Admin: 06/24/18 08:06 Dose: Not Given Guaifenesin (Robitussin) 200 mg PO Q4HR PRN PRN Reason: Cough Stop: 08/18/18 07:10 Last Admin: 06/24/18 09:09 Dose: 200 mg Hydromorphone HCl (Dilaudid) 1 mg IVP Q4HR PRN PRN Reason: Pain (Severe) Stop: 08/18/18 07:10 Last Admin: 06/24/18 07:46 Dose: 1 mg Lorazepam (Ativan) 1 mg IVP Q6HR PRN; Protocol PRN Reason: Agitation Stop: 08/23/18 01:35 Last Admin: 06/24/18 01:59 Dose: 1 mg Magnesium Hydroxide (Milk Of Magnesia) 30 ml PO HS PRN PRN Reason: Constipation Stop: 08/18/18 07:10 Miscellaneous (Clinical Monitoring) 1 ea MC DAILY PRN PRN Reason: RENAL DOSING Stop: 08/18/18 16:50 Ondansetron HCl (Zofran) 4 mg IVP Q6H PRN PRN Reason: Nausea / Vomiting Stop: 08/21/18 05:20 Last Admin: 06/22/18 08:25 Dose: 4 mg Polyethylene Glycol (Miralax) 17 gm PO DAILY KRISTIN Stop: 08/18/18 08:59 Last Admin: 06/24/18 08:06 Dose: Not Given Vitamin B Complex/Vit C/Folic Acid (Vitamin B Complex W/Vitamin C) 1 tab PO DAILY [facility] Stop: 08/18/18 08:59 Last Admin: 06/24/18 08:04 Dose: 1 tab General: Alert, No acute distress, Moderate distress, Other (uncooperative), no Cooperative HEENT: Atraumatic, PERRLA, Mucous membr. moist/pink Neck: Supple, +2 carotid pulse wo bruit (flat) Cardiovascular: Regular rate, Normal S1, Normal S2 Lungs: Other (few rhonchi) Abdomen: Bowel sounds, Soft, Obese Extremities: no Edema Neurological: Normal tone, Sensation intact Skin: no Rash Psych/Mental Status: Other ( uncooperative) Assessment/Plan - Assessment Assessment: Congestive heart failure systolic dysfunction acute Hypertension Hyperlipidemia CKD stage V Deafness Osteoporosis Iron deficiency anemia COPD Echocardiogram ejection fraction 38% left atrial enlargement and right atrial enlargement mild mitral regurgitation and mild tricuspid regurgitation mild pulmonary hypertension right ventricular systolic pressure 46 mmHg BNP improved - Plan Plan: Continue present management as renal evaluation Echocardiogram ejection fraction 38% mild mitral regurgitation mild tricuspid regurgitation left atrial enlargement and right atrial enlargement cardiomyopathy BNP slightly improved Nutritional Asmnt/Malnutr-PDOC - Dietary Evaluation Malnutrition Findings (Please click <Entered> for more info): Nutritional Asmnt/Malnutrition Start: 06/19/18 15: 27 Text: Status: Complete Freq: Protocol: Document 06/19/18 15:27 [email or web address] (Rec: 06/19/18 15:41 [email or web address] [email or web address]) Nutritional Asmnt/Malnutrition Patient General Information Nutritional Screening High Risk Diagnosis acute chronic kidney disease, CHF Pertinent Medical Hx/Surgical Hx CHF, osteonecrosis, polyneuropathy, cardiomegaly, chronic anemia, osteoarthritis , hyperlipidemia, osteoporosis , hearing loss, renal insufficiency, asthma Subjective Information Pt was seen sleeping at time of visit, did not wake to greeting. PO intake is 100% per RN. Renal ultrasound done today, findings reflect a degree of chronic parenchymal disease and bilateral renal cysts, per MD report. Current Diet Order/ Nutrition Support low sodium 2gm Pertinent Medications lipitor, d5-0.45ns, colace, iron, zofran, miralax, vit b complex w/ vit c Pertinent Labs 06/18 BUN 63, cr 2.6, alb 3.6 Nutritional Hx/Data Height 1.6 m Height (Calculated Centimeters) 160.0 Current Weight (lbs) 72.121 kg Weight (Calculated Kilograms) 72.1 Weight (Calculated Grams) 01445.2 [place] Body Weight 115 Body Mass Index (BMI) 28.1 Weight Status Overweight GI Symptoms GI Symptoms None Last BM not indicated Difficult in: None Food Allergies No Skin Integrity/Comment: intact Current %PO Good (75-100%) Estimated Nutritional Goals BEE in Kcals: Using Current wt Calories/Kcals/Kg 25-30 Kcals Calculated 5968-1341 Protein: Using Current wt Protein g/k.7-0.8 Protein Calculated 50-57 Fluid: ml 8177-0381 (1ml/kcal) Nutritional Problem 1. Problem Problem altered nutrition related labs Etiology renal dysfunction Signs/Symptoms: BUN 63, Cr 2.6 Malnutrition Alert Is there a minimum of two criteria No selected? Query Text:Check all the applicable criteria. A minimum of two criteria are recommended for diagnosis of either severe or non-severe malnutrition. Malnutrition Related to Morbid Obesity Malnutrition related to morbid obesity No Intervention/Recommendation Comments 1. Recommend adding Renal 50g diet. RN Marc notified, will speak to MD. Continue with low sodium 2gm diet as ordered. 2. Monitor PO intake, wt, labs and skin integrity 3. F/U as high risk in 2-3 days Expected Outcomes/Goals Expected Outcomes/Goals 1. PO intake to meet at least 75% of nutritional needs. 2. Wt stability, skin to remain intact, labs to approach WNL. Reviewed by Vero Peterson RD
[2018-06-24] MEDS ORDERED: Codeine /Guaifenesin 200mg-20mg/10 mL UDC PO ONE ×2 (12:51→18:45)
[2018-06-24] MEDS: Albuterol/Ipratropium Neb 3 ML AERS HHN PRN ×2 (13:25→18:23)
[2018-06-24] MEDS ORDERED: Codeine /Guaifenesin 200mg-20mg/10 mL UDC PO PRN ×2 (13:33→19:24)
--- NOTE | 2018-06-24 14:51 | General Progress Note ---
Subjective - Review of Systems Service Date: 06/24/18 Subjective: awake, incoherent, impulsive, occ. screaming, aggressive behaviour Objective - Results Result Diagrams: 06/23/18 06:04 06/24/18 04:50 Recent Labs: Laboratory Last Values WBC 8.8 Th/cmm (4.8-10.8) 06/23/18 06:04 RBC 3.31 Mil/cmm (3.80-5.20) L 06/23/18 06:04 Hgb 9.3 gm/dL (12-16) L 06/23/18 06:04 Hct 28.4 % (41.0-60) L 06/23/18 06:04 MCV 85.8 fl (81-100) 06/23/18 06:04 MCH 28.1 pg (27.0-31.0) 06/23/18 06:04 MCHC Differential 32.8 pg (28.0-36.0) 06/23/18 06:04 RDW 13.5 % (11.5-20.0) 06/23/18 06:04 Plt Count 171 Th/cmm (150-400) 06/23/18 06:04 MPV 8.0 fl 06/23/18 06:04 Add Manual Diff YES 06/20/18 05:55 Neutrophils % 58.6 % (40.0-80.0) 06/23/18 06:04 Lymphocytes % 21.4 % (20.0-50.0) 06/23/18 06:04 Monocytes % 13.1 % (2.0-10.0) H 06/23/18 06:04 Eosinophils % 6.2 % (0.0-5.0) H 06/23/18 06:04 Basophils % 0.7 % (0.0-2.0) 06/23/18 06:04 Neutrophils (Manual) 45 % (40-80) 06/20/18 05:55 Lymphocytes 27 % (20-50) 06/20/18 05:55 Monocytes 19 % (2-10) H 06/20/18 05:55 Eosinophils 9 % (0-5) H 06/20/18 05:55 Platelet Estimate ADEQUATE (NORMAL) 06/20/18 05:55 Eos Smear Source URINE 06/19/18 18:10 Eos Smear Total Cells NONE SEEN (NONE SEEN) 06/19/18 18:10 PT 11.0 SECONDS (9.5-11.5) 06/18/18 23:35 INR 1.06 (0.5-1.4) 06/18/18 23:35 PTT (Actin FS) 27.2 SECONDS (26.0-38.0) 06/18/18 23:35 Sodium 140 mEq/L (136-145) 06/24/18 04:50 Potassium 4.3 mEq/L (3.5-5.1) 06/24/18 04:50 Chloride 109 mEq/L (98-107) H 06/24/18 04:50 Carbon Dioxide 23.5 mEq/L (21.0-31.0) 06/24/18 04:50 Anion Gap 11.8 (7.0-16.0) 06/24/18 04:50 BUN 54 mg/dL (7-25) H 06/24/18 04:50 Creatinine 2.4 mg/dL (0.6-1.2) H 06/24/18 04:50 Est GFR ( Amer) TNP 06/24/18 04:50 Est GFR (Non-Af Amer) TNP 06/24/18 04:50 BUN/Creatinine Ratio 22.5 06/24/18 04:50 Glucose 106 mg/dL (70-105) H 06/24/18 04:50 Uric Acid 8.1 mg/dL (2.3-6.6) H 06/19/18 15:30 Calcium 8.7 mg/dL (8.6-10.3) 06/24/18 04:50 Phosphorus 4.2 mg/dL (2.5-5.0) 06/20/18 05:55 Magnesium 2.3 mg/dL (1.9-2.7) 06/20/18 05:55 Total Bilirubin 0.4 mg/dL (0.3-1.0) 06/23/18 06:04 AST 13 U/L (13-39) 06/23/18 06:04 ALT 8 U/L (7-52) 06/23/18 06:04 Alkaline Phosphatase 72 U/L (34-104) 06/23/18 06:04 Troponin I 0.02 ng/mL (0.01-0.05) 06/18/18 23:35 B-Natriuretic Peptide 480.0 pg/mL (5.0-100.0) H 06/24/18 04:50 Total Protein 6.4 gm/dL (6.0-8.3) 06/23/18 06:04 Albumin 3.4 gm/dL (3.7-5.3) L 06/23/18 06:04 Globulin 3.0 gm/dL 06/23/18 06:04 Albumin/Globulin Ratio 1.1 (1.0-1.8) 06/23/18 06:04 Triglycerides 112 mg/dL (<150) 06/19/18 15:30 Cholesterol 189 mg/dL (<200) 06/19/18 15:30 LDL Cholesterol Direct 132 mg/dL (75-193) 06/19/18 15:30 HDL Cholesterol 45 mg/dL (23-92) 06/19/18 15:30 TSH 2.31 uIU/ml (0.34-5.60) 06/19/18 15:30 Urine Source MIDSTREAM 06/19/18 00:15 Urine Color YELLOW 06/19/18 00:15 Urine Clarity CLEAR (CLEAR) 06/19/18 00:15 Urine pH 6.0 (4.6 - 8.0) 06/19/18 00:15 Ur Specific [place] 1.015 (1.005-1.030) 06/19/18 00:15 Urine Protein 100 mg/dL (NEGATIVE) H 06/19/18 00:15 Urine Glucose (UA) NEGATIVE mg/dL (NEGATIVE) 06/19/18 00:15 Urine Ketones NEGATIVE mg/dL (NEGATIVE) 06/19/18 00:15 Urine Blood NEGATIVE (NEGATIVE) 06/19/18 00:15 Urine Nitrate NEGATIVE (NEGATIVE) 06/19/18 00:15 Urine Bilirubin NEGATIVE (NEGATIVE) 06/19/18 00:15 Urine Urobilinogen 0.2 E.U./dL (0.2 - 1.0) 06/19/18 00:15 Ur Leukocyte Esterase NEGATIVE (NEGATIVE) 06/19/18 00:15 Urine RBC 0-2 /hpf (0-5) 06/19/18 00:15 Urine WBC 0-2 /hpf (0-5) 06/19/18 00:15 Ur Epithelial Cells FEW /lpf (FEW) 06/19/18 00:15 Urine Bacteria FEW /hpf (NONE SEEN) 06/19/18 00:15 Ur Random Sodium 74 mmol/L 06/19/18 18:10 Urine Creatinine 64.0 mg/dl (28.0-217.0) 06/19/18 18:10 Microalb/Creat Ratio 640.2 mg/g creat (0.0-30.0) H 06/19/18 18:10 - Physical Exam Vitals and I&O: Vital Signs Temp 99 F 06/24/18 00:00 Pulse 74 06/24/18 13:25 Resp 20 06/24/18 13:25 BP 147/68 06/24/18 08:05 Pulse Ox 94 06/24/18 13:25 Intake & Output 06/23/18 06/24/18 06/24/18 18:59 06:59 18:59 Intake Total 700 300 Balance 700 300 Weight (lbs) 71.668 kg 71.668 kg Intake: Oral 700 300 Other: # Voids 2 2 # Bowel Movements 1 Stool Characteristics Soft Soft Soft Brown Brown Brown Weight Source Bedscale Bedscale Active Medications: Current Medications Acetaminophen (Tylenol) 650 mg PO Q6HR PRN PRN Reason: Temp above 101F & Mild Pain Stop: 08/18/18 07:10 Acetaminophen/Hydrocodone Bitart ([place] 10 Mg/325 Mg) 1 tab PO Q4HR PRN PRN Reason: Pain (Moderate) Stop: 08/18/18 07:10 Last Admin: 06/23/18 20:46 Dose: 1 tab Albuterol/Ipratropium (Duoneb Neb) 3 ml HHN Q4HR PRN PRN Reason: Shortness of Breath or Wheeze Stop: 08/18/18 07:10 Last Admin: 06/24/18 13:25 Dose: 3 ml Amlodipine Besylate (Norvasc) 10 mg PO DAILY [facility] Stop: 08/18/18 08:59 Last Admin: 06/24/18 08:05 Dose: 10 mg Aspirin (Ecotrin) 81 mg PO DAILY [facility] Stop: 08/18/18 08:59 Last Admin: 06/24/18 08:04 Dose: 81 mg Atorvastatin Calcium (Lipitor) 20 mg PO [facility] Stop: 08/18/18 20:59 Last Admin: 06/23/18 20:47 Dose: 20 mg Bisacodyl (Dulcolax 10 Mg Supp) 10 mg RC DAILY PRN PRN Reason: Constipation Stop: 08/18/18 07:10 Camphor/Menthol (Bengay Greaseless 10%-15%) 1 appl TP QID PRN PRN Reason: Pain (Mild) Stop: 08/18/18 16:59 Carbamide Peroxide (Debrox Otic Drops) 2 drop EACH EAR BID PRN PRN Reason: EARWAX Stop: 08/18/18 07:10 Carvedilol (Coreg) 25 mg PO Q12HR [facility] Stop: 08/18/18 08:59 Last Admin: 06/24/18 08:05 Dose: 25 mg Diphenhydramine HCl (Benadryl) 25 mg PO Q6HR PRN PRN Reason: Itching Stop: 08/18/18 07:10 Last Admin: 06/19/18 09:15 Dose: 25 mg Docusate Sodium (Colace) 100 mg PO BID [facility] Stop: 08/18/18 08:59 Last Admin: 06/24/18 08:06 Dose: Not Given Epoetin Cristian (Epogen) 10,000 units SUBQ MoWeFr [facility] Stop: 08/20/18 13:47 Last Admin: 06/21/18 17:09 Dose: 10,000 units Ferrous Sulfate (Iron) 325 mg PO DAILY [facility] Stop: 08/18/18 08:59 Last Admin: 06/24/18 08:04 Dose: 325 mg Gabapentin (Neurontin) 600 mg PO TID [facility] Stop: 08/18/18 08:59 Last Admin: 06/24/18 13:00 Dose: Not Given Guaifenesin (Robitussin) 200 mg PO Q4HR PRN PRN Reason: Cough Stop: 08/18/18 07:10 Last Admin: 06/24/18 12:50 Dose: 200 mg Guaifenesin/Codeine Phosphate (Robitussin Ac) 10 ml PO Q6HR PRN PRN Reason: Cough Stop: 08/23/18 13:32 Hydromorphone HCl (Dilaudid) 1 mg IVP Q4HR PRN PRN Reason: Pain (Severe) Stop: 08/18/18 07:10 Last Admin: 06/24/18 11:07 Dose: 1 mg Lorazepam (Ativan) 1 mg IVP Q6HR PRN; Protocol PRN Reason: Agitation Stop: 08/23/18 01:35 Last Admin: 06/24/18 13:00 Dose: 1 mg Magnesium Hydroxide (Milk Of Magnesia) 30 ml PO HS PRN PRN Reason: Constipation Stop: 08/18/18 07:10 Miscellaneous (Clinical Monitoring) 1 ea MC DAILY PRN PRN Reason: RENAL DOSING Stop: 08/18/18 16:50 Ondansetron HCl (Zofran) 4 mg IVP Q6H PRN PRN Reason: Nausea / Vomiting Stop: 08/21/18 05:20 Last Admin: 06/24/18 13:12 Dose: 4 mg Polyethylene Glycol (Miralax) 17 gm PO DAILY [facility] Stop: 08/18/18 08:59 Last Admin: 06/24/18 08:06 Dose: Not Given Vitamin B Complex/Vit C/Folic Acid (Vitamin B Complex W/Vitamin C) 1 tab PO DAILY [facility] Stop: 08/18/18 08:59 Last Admin: 06/24/18 08:04 Dose: 1 tab General: Alert, No acute distress, Moderate distress, Other (uncooperative), no Cooperative HEENT: Atraumatic, PERRLA, Mucous membr. moist/pink Neck: Supple, +2 carotid pulse wo bruit (flat) Cardiovascular: Regular rate, Normal S1, Normal S2 Lungs: Other (few rhonchi) Abdomen: Bowel sounds, Soft, Obese Extremities: no Edema Neurological: Normal tone, Sensation intact Skin: no Rash Psych/Mental Status: Other ( uncooperative) Assessment/Plan - Assessment Assessment: CKD Deaf DJD both Hips Ess Htn Dyslipidemia Osteoporosis Polyneuropathy COPD acute pysch decompensation vs. Delirium - Plan Plan: Lab - Result Diagrams 06/20/18 05:55 06/20/18 05:55 Current Medications Acetaminophen (Tylenol) 650 mg PO Q6HR PRN PRN Reason: Temp above 101F & Mild Pain Stop: 08/18/18 07:10 Acetaminophen/Hydrocodone Bitart ([place] 10 Mg/325 Mg) 1 tab PO Q4HR PRN PRN Reason: Pain (Moderate) Stop: 08/18/18 07:10 Albuterol Sulfate (Albuterol 2.5mg/3ml Neb Ud) 2.5 mg HHN TID PRN PRN Reason: Wheezing Albuterol/Ipratropium (Duoneb Neb) 3 ml HHN Q4HR PRN PRN Reason: Shortness of Breath or Wheeze Stop: 08/18/18 07:10 Amlodipine Besylate (Norvasc) 10 mg PO DAILY [facility] Stop: 08/18/18 08:59 Last Admin: 06/20/18 09:20 Dose: 10 mg Aspirin (Ecotrin) 81 mg PO DAILY [facility] Stop: 08/18/18 08:59 Last Admin: 06/20/18 09:15 Dose: 81 mg Atorvastatin Calcium (Lipitor) 20 mg PO HS [facility] Stop: 08/18/18 20:59 Last Admin: 06/19/18 21:10 Dose: 20 mg Bisacodyl (Dulcolax 10 Mg Supp) 10 mg RC DAILY PRN PRN Reason: Constipation Stop: 08/18/18 07:10 Camphor/Menthol (Bengay Greaseless 10%-15%) 1 appl TP QID PRN PRN Reason: Pain (Mild) Stop: 08/18/18 16:59 Carbamide Peroxide (Debrox Otic Drops) 2 drop EACH EAR BID PRN PRN Reason: EARWAX Stop: 08/18/18 07:10 Carvedilol (Coreg) 25 mg PO Q12HR [facility] Stop: 08/18/18 08:59 Last Admin: 06/20/18 09:18 Dose: 25 mg Diphenhydramine HCl (Benadryl) 25 mg PO Q6HR PRN PRN Reason: Itching Stop: 08/18/18 07:10 Last Admin: 06/19/18 09:15 Dose: 25 mg Docusate Sodium (Colace) 100 mg PO BID [facility] Stop: 08/18/18 08:59 Last Admin: 06/20/18 09:14 Dose: 100 mg Ferrous Sulfate (Iron) 325 mg PO DAILY [facility] Stop: 08/18/18 08:59 Last Admin: 06/20/18 09:13 Dose: 325 mg Gabapentin (Neurontin) 600 mg PO TID [facility] Stop: 08/18/18 08:59 Last Admin: 06/20/18 09:14 Dose: 600 mg Guaifenesin (Robitussin) 200 mg PO Q4HR PRN PRN Reason: Cough Stop: 08/18/18 07:10 Hydromorphone HCl (Dilaudid) 1 mg IVP Q4HR PRN PRN Reason: Pain (Severe) Stop: 08/18/18 07:10 Last Admin: 06/20/18 09:10 Dose: 1 mg Magnesium Hydroxide (Milk Of Magnesia) 30 ml PO HS PRN PRN Reason: Constipation Stop: 08/18/18 07:10 Miscellaneous (Clinical Monitoring) 1 ea MC DAILY PRN PRN Reason: RENAL DOSING Stop: 08/18/18 16:50 Ondansetron HCl (Zofran Odt) 8 mg PO Q8HR PRN PRN Reason: Nausea / Vomiting Polyethylene Glycol (Miralax) 17 gm PO DAILY [facility] Stop: 08/18/18 08:59 Last Admin: 06/20/18 10:36 Dose: Not Given Vitamin B Complex/Vit C/Folic Acid (Vitamin B Complex W/Vitamin C) 1 tab PO DAILY [facility] Stop: 08/18/18 08:59 Last Admin: 06/20/18 09:15 Dose: 1 tab Lab - Result Diagrams 06/23/18 06:04 06/24/18 04:50 Kidney fnc remains stable w/ BUN/CR of 54/2.4 possibly her baseline Renal US revealed b/l renal cysts start Epo for anemia encourage po fluid intake consider psych eval for impulsive, uncontrolled behaviour possible DC Nutritional Asmnt/Malnutr-PDOC - Dietary Evaluation Malnutrition Findings (Please click <Entered> for more info): Nutritional Asmnt/Malnutrition Start: 06/19/18 15: 27 Text: Status: Complete Freq: Protocol: Document 06/19/18 15:27 [email or web address] (Rec: 06/19/18 15:41 [email or web address] [email or web address]) Nutritional Asmnt/Malnutrition Patient General Information Nutritional Screening High Risk Diagnosis acute chronic kidney disease, CHF Pertinent Medical Hx/Surgical Hx CHF, osteonecrosis, polyneuropathy, cardiomegaly, chronic anemia, osteoarthritis , hyperlipidemia, osteoporosis , hearing loss, renal insufficiency, asthma Subjective Information Pt was seen sleeping at time of visit, did not wake to greeting. PO intake is 100% per RN. Renal ultrasound done today, findings reflect a degree of chronic parenchymal disease and bilateral renal cysts, per MD report. Current Diet Order/ Nutrition Support low sodium 2gm Pertinent Medications lipitor, d5-0.45ns, colace, iron, zofran, miralax, vit b complex w/ vit c Pertinent Labs 06/18 BUN 63, cr 2.6, alb 3.6 Nutritional Hx/Data Height 1.6 m Height (Calculated Centimeters) 160.0 Current Weight (lbs) 72.121 kg Weight (Calculated Kilograms) 72.1 Weight (Calculated Grams) 03846.2 [place] Body Weight 115 Body Mass Index (BMI) 28.1 Weight Status Overweight GI Symptoms GI Symptoms None Last BM not indicated Difficult in: None Food Allergies No Skin Integrity/Comment: intact Current %PO Good (75-100%) Estimated Nutritional Goals BEE in Kcals: Using Current wt Calories/Kcals/Kg 25-30 Kcals Calculated 3014-7174 Protein: Using Current wt Protein g/k.7-0.8 Protein Calculated 50-57 Fluid: ml 3996-0367 (1ml/kcal) Nutritional Problem 1. Problem Problem altered nutrition related labs Etiology renal dysfunction Signs/Symptoms: BUN 63, Cr 2.6 Malnutrition Alert Is there a minimum of two criteria No selected? Query Text:Check all the applicable criteria. A minimum of two criteria are recommended for diagnosis of either severe or non-severe malnutrition. Malnutrition Related to Morbid Obesity Malnutrition related to morbid obesity No Intervention/Recommendation Comments 1. Recommend adding Renal 50g diet. TAO Tran notified, will speak to MD. Continue with low sodium 2gm diet as ordered. 2. Monitor PO intake, wt, labs and skin integrity 3. F/U as high risk in 2-3 days Expected Outcomes/Goals Expected Outcomes/Goals 1. PO intake to meet at least 75% of nutritional needs. 2. Wt stability, skin to remain intact, labs to approach WNL. Reviewed by Vero Peterson RD
[2018-06-24] MEDS: Epoetin Alfa 20000 Units/mL Vial SUBQ SCH (16:11)
[2018-06-24] MEDS: Atorvastatin Calcium 10 MG TAB PO SCH (20:57)
--- NOTE | 2018-06-24 23:15 | Internal Medicine Prog Note ---
Internal Medicine Subjective - Subjective Service Date: 06/24/18 (pt was seen earlier today) Patient seen and examined:: without staff Patient is:: awake, verbal, interactive, in bed Patient Complaints of:: congestion Per staff patient has:: no adverse event Internal Medicine Objective - Results Result Diagrams: 06/23/18 06:04 06/24/18 04:50 Recent Labs: Laboratory Last Values WBC 8.8 Th/cmm (4.8-10.8) 06/23/18 06:04 RBC 3.31 Mil/cmm (3.80-5.20) L 06/23/18 06:04 Hgb 9.3 gm/dL (12-16) L 06/23/18 06:04 Hct 28.4 % (41.0-60) L 06/23/18 06:04 MCV 85.8 fl (81-100) 06/23/18 06:04 MCH 28.1 pg (27.0-31.0) 06/23/18 06:04 MCHC Differential 32.8 pg (28.0-36.0) 06/23/18 06:04 RDW 13.5 % (11.5-20.0) 06/23/18 06:04 Plt Count 171 Th/cmm (150-400) 06/23/18 06:04 MPV 8.0 fl 06/23/18 06:04 Add Manual Diff YES 06/20/18 05:55 Neutrophils % 58.6 % (40.0-80.0) 06/23/18 06:04 Lymphocytes % 21.4 % (20.0-50.0) 06/23/18 06:04 Monocytes % 13.1 % (2.0-10.0) H 06/23/18 06:04 Eosinophils % 6.2 % (0.0-5.0) H 06/23/18 06:04 Basophils % 0.7 % (0.0-2.0) 06/23/18 06:04 Neutrophils (Manual) 45 % (40-80) 06/20/18 05:55 Lymphocytes 27 % (20-50) 06/20/18 05:55 Monocytes 19 % (2-10) H 06/20/18 05:55 Eosinophils 9 % (0-5) H 06/20/18 05:55 Platelet Estimate ADEQUATE (NORMAL) 06/20/18 05:55 Eos Smear Source URINE 06/19/18 18:10 Eos Smear Total Cells NONE SEEN (NONE SEEN) 06/19/18 18:10 PT 11.0 SECONDS (9.5-11.5) 06/18/18 23:35 INR 1.06 (0.5-1.4) 06/18/18 23:35 PTT (Actin FS) 27.2 SECONDS (26.0-38.0) 06/18/18 23:35 Sodium 140 mEq/L (136-145) 06/24/18 04:50 Potassium 4.3 mEq/L (3.5-5.1) 06/24/18 04:50 Chloride 109 mEq/L (98-107) H 06/24/18 04:50 Carbon Dioxide 23.5 mEq/L (21.0-31.0) 06/24/18 04:50 Anion Gap 11.8 (7.0-16.0) 06/24/18 04:50 BUN 54 mg/dL (7-25) H 06/24/18 04:50 Creatinine 2.4 mg/dL (0.6-1.2) H 06/24/18 04:50 Est GFR ( Amer) TNP 06/24/18 04:50 Est GFR (Non-Af Amer) TNP 06/24/18 04:50 BUN/Creatinine Ratio 22.5 06/24/18 04:50 Glucose 106 mg/dL (70-105) H 06/24/18 04:50 Uric Acid 8.1 mg/dL (2.3-6.6) H 06/19/18 15:30 Calcium 8.7 mg/dL (8.6-10.3) 06/24/18 04:50 Phosphorus 4.2 mg/dL (2.5-5.0) 06/20/18 05:55 Magnesium 2.3 mg/dL (1.9-2.7) 06/20/18 05:55 Total Bilirubin 0.4 mg/dL (0.3-1.0) 06/23/18 06:04 AST 13 U/L (13-39) 06/23/18 06:04 ALT 8 U/L (7-52) 06/23/18 06:04 Alkaline Phosphatase 72 U/L (34-104) 06/23/18 06:04 Troponin I 0.02 ng/mL (0.01-0.05) 06/18/18 23:35 B-Natriuretic Peptide 480.0 pg/mL (5.0-100.0) H 06/24/18 04:50 Total Protein 6.4 gm/dL (6.0-8.3) 06/23/18 06:04 Albumin 3.4 gm/dL (3.7-5.3) L 06/23/18 06:04 Globulin 3.0 gm/dL 06/23/18 06:04 Albumin/Globulin Ratio 1.1 (1.0-1.8) 06/23/18 06:04 Triglycerides 112 mg/dL (<150) 06/19/18 15:30 Cholesterol 189 mg/dL (<200) 06/19/18 15:30 LDL Cholesterol Direct 132 mg/dL (75-193) 06/19/18 15:30 HDL Cholesterol 45 mg/dL (23-92) 06/19/18 15:30 TSH 2.31 uIU/ml (0.34-5.60) 06/19/18 15:30 Urine Source MIDSTREAM 06/19/18 00:15 Urine Color YELLOW 06/19/18 00:15 Urine Clarity CLEAR (CLEAR) 06/19/18 00:15 Urine pH 6.0 (4.6 - 8.0) 06/19/18 00:15 Ur Specific [place] 1.015 (1.005-1.030) 06/19/18 00:15 Urine Protein 100 mg/dL (NEGATIVE) H 06/19/18 00:15 Urine Glucose (UA) NEGATIVE mg/dL (NEGATIVE) 06/19/18 00:15 Urine Ketones NEGATIVE mg/dL (NEGATIVE) 06/19/18 00:15 Urine Blood NEGATIVE (NEGATIVE) 06/19/18 00:15 Urine Nitrate NEGATIVE (NEGATIVE) 06/19/18 00:15 Urine Bilirubin NEGATIVE (NEGATIVE) 06/19/18 00:15 Urine Urobilinogen 0.2 E.U./dL (0.2 - 1.0) 06/19/18 00:15 Ur Leukocyte Esterase NEGATIVE (NEGATIVE) 06/19/18 00:15 Urine RBC 0-2 /hpf (0-5) 06/19/18 00:15 Urine WBC 0-2 /hpf (0-5) 06/19/18 00:15 Ur Epithelial Cells FEW /lpf (FEW) 06/19/18 00:15 Urine Bacteria FEW /hpf (NONE SEEN) 06/19/18 00:15 Ur Random Sodium 74 mmol/L 06/19/18 18:10 Urine Creatinine 64.0 mg/dl (28.0-217.0) 06/19/18 18:10 Microalb/Creat Ratio 640.2 mg/g creat (0.0-30.0) H 06/19/18 18:10 - Physical Exam Vitals and I&O: Vital Signs Temp 99 F 06/24/18 00:00 Pulse 80 06/24/18 20:57 Resp 20 06/24/18 20:00 BP 186/89 06/24/18 20:57 Pulse Ox 95 06/24/18 18:27 Intake & Output 06/24/18 06/24/18 06/25/18 06:59 18:59 06:59 Intake Total 300 800 Balance 300 800 Weight (lbs) 71.668 kg 71.668 kg Intake: Oral 300 800 Other: # Voids 2 4 # Bowel Movements 1 1 Stool Characteristics Soft Soft Soft Brown Brown Brown Weight Source Bedscale Bedscale Active Medications: Current Medications Acetaminophen (Tylenol) 650 mg PO Q6HR PRN PRN Reason: Temp above 101F & Mild Pain Stop: 08/18/18 07:10 Acetaminophen/Hydrocodone Bitart ([place] 10 Mg/325 Mg) 1 tab PO Q4HR PRN PRN Reason: Pain (Moderate) Stop: 08/18/18 07:10 Last Admin: 06/23/18 20:46 Dose: 1 tab Albuterol/Ipratropium (Duoneb Neb) 3 ml HHN Q4HR PRN PRN Reason: Shortness of Breath or Wheeze Stop: 08/18/18 07:10 Last Admin: 06/24/18 18:23 Dose: 3 ml Amlodipine Besylate (Norvasc) 10 mg PO DAILY [facility] Stop: 08/18/18 08:59 Last Admin: 06/24/18 08:05 Dose: 10 mg Aspirin (Ecotrin) 81 mg PO DAILY [facility] Stop: 08/18/18 08:59 Last Admin: 06/24/18 08:04 Dose: 81 mg Atorvastatin Calcium (Lipitor) 20 mg PO HS [facility] Stop: 08/18/18 20:59 Last Admin: 06/24/18 20:57 Dose: 20 mg Bisacodyl (Dulcolax 10 Mg Supp) 10 mg RC DAILY PRN PRN Reason: Constipation Stop: 08/18/18 07:10 Camphor/Menthol (Bengay Greaseless 10%-15%) 1 appl TP QID PRN PRN Reason: Pain (Mild) Stop: 08/18/18 16:59 Carbamide Peroxide (Debrox Otic Drops) 2 drop EACH EAR BID PRN PRN Reason: EARWAX Stop: 08/18/18 07:10 Carvedilol (Coreg) 25 mg PO Q12HR [facility] Stop: 08/18/18 08:59 Last Admin: 06/24/18 20:57 Dose: 25 mg Diphenhydramine HCl (Benadryl) 25 mg PO Q6HR PRN PRN Reason: Itching Stop: 08/18/18 07:10 Last Admin: 06/19/18 09:15 Dose: 25 mg Docusate Sodium (Colace) 100 mg PO BID [facility] Stop: 08/18/18 08:59 Last Admin: 06/24/18 16:21 Dose: Not Given Epoetin Cristian (Epogen) 10,000 units SUBQ MoWeFr [facility] Stop: 08/20/18 13:47 Last Admin: 06/24/18 16:11 Dose: 10,000 units Ferrous Sulfate (Iron) 325 mg PO DAILY [facility] Stop: 08/18/18 08:59 Last Admin: 06/24/18 08:04 Dose: 325 mg Gabapentin (Neurontin) 600 mg PO TID [facility] Stop: 08/18/18 08:59 Last Admin: 06/24/18 21:02 Dose: Not Given Guaifenesin (Robitussin) 200 mg PO Q4HR PRN PRN Reason: Cough Stop: 08/18/18 07:10 Last Admin: 06/24/18 19:28 Dose: 200 mg Guaifenesin/Codeine Phosphate (Robitussin Ac) 10 ml PO Q6HR PRN PRN Reason: Cough Stop: 08/23/18 19:23 Hydromorphone HCl (Dilaudid) 1 mg IVP Q4HR PRN PRN Reason: Pain (Severe) Stop: 08/18/18 07:10 Last Admin: 06/24/18 20:28 Dose: 1 mg Lorazepam (Ativan) 1 mg IVP Q6HR PRN; Protocol PRN Reason: Agitation Stop: 08/23/18 01:35 Last Admin: 06/24/18 16:16 Dose: 1 mg Magnesium Hydroxide (Milk Of Magnesia) 30 ml PO HS PRN PRN Reason: Constipation Stop: 08/18/18 07:10 Miscellaneous (Clinical Monitoring) 1 ea MC DAILY PRN PRN Reason: RENAL DOSING Stop: 08/18/18 16:50 Ondansetron HCl (Zofran) 4 mg IVP Q6H PRN PRN Reason: Nausea / Vomiting Stop: 08/21/18 05:20 Last Admin: 06/24/18 18:12 Dose: 4 mg Polyethylene Glycol (Miralax) 17 gm PO DAILY KRISTIN Stop: 08/18/18 08:59 Last Admin: 06/24/18 08:06 Dose: Not Given Vitamin B Complex/Vit C/Folic Acid (Vitamin B Complex W/Vitamin C) 1 tab PO DAILY KRISTIN Stop: 08/18/18 08:59 Last Admin: 06/24/18 08:04 Dose: 1 tab General: weak, congested, disheveled HEENT: NC/AT, PERRLA, EOMI, anicteric sclerae Neck: Supple, +2 carotid pulse wo bruit, + JVD Lungs: rales, ronchi Cardiovascular: RRR, Normal S1, Normal S2 Abdomen: soft, non-tender, tender, thin Extremities: clear, edema, pedal pulses Neurological: no change, lethargic, muscle weakness Internal Medicine Assmt/Plan - Assessment Assessment: ARF/chronic kidney disease: work up in progress; avoid nephrotoxic meds. ALOC: on and off; observe closely. CHF: EF 35%, continue meds; adjust accordingly. HTN: adjusting meds as needed. COPD: RT protocol. Chronic pain syndrome. First degree AV block? DVT prophylaxis. Nutritional Asmnt/Malnutr-PDOC - Dietary Evaluation Malnutrition Findings (Please click <Entered> for more info): Nutritional Asmnt/Malnutrition Start: 06/19/18 15: 27 Text: Status: Complete Freq: Protocol: Document 06/19/18 15:27 [email or web address] (Rec: 06/19/18 15:41 [email or web address]) Nutritional Asmnt/Malnutrition Patient General Information Nutritional Screening High Risk Diagnosis acute chronic kidney disease, CHF Pertinent Medical Hx/Surgical Hx CHF, osteonecrosis, polyneuropathy, cardiomegaly, chronic anemia, osteoarthritis , hyperlipidemia, osteoporosis , hearing loss, renal insufficiency, asthma Subjective Information Pt was seen sleeping at time of visit, did not wake to greeting. PO intake is 100% per RN. Renal ultrasound done today, findings reflect a degree of chronic parenchymal disease and bilateral renal cysts, per MD report. Current Diet Order/ Nutrition Support low sodium 2gm Pertinent Medications lipitor, d5-0.45ns, colace, iron, zofran, miralax, vit b complex w/ vit c Pertinent Labs 06/18 BUN 63, cr 2.6, alb 3.6 Nutritional Hx/Data Height 1.6 m Height (Calculated Centimeters) 160.0 Current Weight (lbs) 72.121 kg Weight (Calculated Kilograms) 72.1 Weight (Calculated Grams) 06571.2 [place] Body Weight 115 Body Mass Index (BMI) 28.1 Weight Status Overweight GI Symptoms GI Symptoms None Last BM not indicated Difficult in: None Food Allergies No Skin Integrity/Comment: intact Current %PO Good (75-100%) Estimated Nutritional Goals BEE in Kcals: Using Current wt Calories/Kcals/Kg 25-30 Kcals Calculated 6172-8980 Protein: Using Current wt Protein g/k.7-0.8 Protein Calculated 50-57 Fluid: ml 6232-9528 (1ml/kcal) Nutritional Problem 1. Problem Problem altered nutrition related labs Etiology renal dysfunction Signs/Symptoms: BUN 63, Cr 2.6 Malnutrition Alert Is there a minimum of two criteria No selected? Query Text:Check all the applicable criteria. A minimum of two criteria are recommended for diagnosis of either severe or non-severe malnutrition. Malnutrition Related to Morbid Obesity Malnutrition related to morbid obesity No Intervention/Recommendation Comments 1. Recommend adding Renal 50g diet. RN Marc notified, will speak to MD. Continue with low sodium 2gm diet as ordered. 2. Monitor PO intake, wt, labs and skin integrity 3. F/U as high risk in 2-3 days Expected Outcomes/Goals Expected Outcomes/Goals 1. PO intake to meet at least 75% of nutritional needs. 2. Wt stability, skin to remain intact, labs to approach WNL. Reviewed by Vero Peterson RD
[2018-06-25] MEDS: HYDROmorphone 1 mg/mL 1mL Syr IVP PRN (00:30)
[2018-06-25] MEDS: Ferrous Sulfate 325 MG TAB PO SCH (08:32)
[2018-06-25] MEDS: guaiFENesin 200 MG/10 ML UDC PO PRN (08:32)
[2018-06-25] MEDS: POLYETHYLENE GLYCOL 3350 17 GM PACK PO SCH (08:33)
[2018-06-25] MEDS: Vitamin B Complex w/Vitamin C Tab PO SCH (08:33)
== END 2018-06-25 08:59 | DRG 682 ==
LOC: ER 22:58 → TELE 06-19 00:55
PROVIDERS: ADMIT Internal Medicine; ATTEND Internal Medicine
DX: N17.9 Acute kidney failure, unspecified (principal); I50.41 Acute combined systolic (congestive) and diastolic (congestive) heart failure; I13.2 Hypertensive heart and chronic kidney disease with heart failure and with stage 5 chronic kidney disease, or end stage renal disease; N18.5 Chronic kidney disease, stage 5; I16.0 Hypertensive urgency; I25.10 Atherosclerotic heart disease of native coronary artery without angina pectoris; G89.4 Chronic pain syndrome; D57.1 Sickle-cell disease without crisis; M54.5 Low back pain; J44.9 Chronic obstructive pulmonary disease, unspecified; E78.5 Hyperlipidemia, unspecified; H91.90 Unspecified hearing loss, unspecified ear; G62.9 Polyneuropathy, unspecified; E86.0 Dehydration; D50.9 Iron deficiency anemia, unspecified; M81.0 Age-related osteoporosis without current pathological fracture; M16.0 Bilateral primary osteoarthritis of hip; Z87.891 Personal history of nicotine dependence; Z88.5 Allergy status to narcotic agent; I25.2 Old myocardial infarction; Z88.0 Allergy status to penicillin; Z88.2 Allergy status to sulfonamides
CPT/HCPCS: 36415-UA; 71045-TC; 76770-TC; 80048-TC; 80053-TC; 80061-TC; 81001-TC; 81015-TC; 82043-90; 82570-TC; 83036-90; 83735-TC; 83880-TC; 84100-TC; 84300-TC; 84443-TC; 84484-TC; 84550-TC; 85007-TC; 85025-TC; 85610-TC; 93005; 94640; 94760; 96374; J0885; J1170; J1885; J1940; J2060; J2270; J2405; Q0162; Z7610